=== PATIENT | female | born 1955 | race Caucasian/White ===

== ENCOUNTER 2021-07-25 15:20 | Inpatient (IN) | payer MEDICARE, BC ==
[2021-07-25] VITALS (11 sets, daily range): BP systolic 155–215; BP diastolic 70–97
[~2021-07-25] VITALS: Ht 152.4 cm; Wt 84.7 kg
[2021-07-25] MEDS ORDERED: IV DEXTROSE 5% 250 ML BAG. IV PRN (15:45)
[2021-07-25] MEDS ORDERED: DEXTROSE 50% 25 GM / 50ML DISP.SYRIN. IV PRN (15:45)
[2021-07-25] MEDS ORDERED: 0.9 % SODIUM CHLORIDE 10 ML DISP.SYRIN. IV PRN (15:45)
[2021-07-25] MEDS ORDERED: ONDANSETRON PF 4 MG/2 ML VIAL. IVP PRN (15:45)
[2021-07-25] MEDS: POTASSIUM CL 20MEQ D5-0.45NACL 1,000 ML IV SCH (16:00)
[2021-07-25 16:03] LABS: BASO # 0.2 x10^3/uL (0.0-0.2); BASO % 1 % (0-3); EOS % 0 % (0-3); HEMATOCRIT 40.7 % (36.0-47.0); HEMOGLOBIN 13.7 g/dL (12.0-15.5); LYMPH # 1.7 x10^3/uL (1.0-4.8); LYMPH % 12 % (24-48); MEAN CORPUSCULAR HEMOGLOBIN 30 pg (25-35); MEAN CORPUSCULAR HGB CONC 34 g/dL (31-37); MEAN CORPUSCULAR VOLUME 89 fL (79-100); MONO # 1.2 x10^3/uL (0.0-1.1); MONO % 8 % (0-9); NEUT # 11.8 x10^3/uL (1.8-7.7); NEUT % 79 % (31-73); PLATELET COUNT 266 x10^3/uL (140-400); RED BLOOD COUNT 4.58 x10^6/uL (3.50-5.40); RED CELL DISTRIBUTION WIDTH 13.8 % (11.5-14.5); WHITE BLOOD COUNT 14.8 x10^3/uL (4.0-11.0)
[2021-07-25] MEDS ORDERED: LIDOCAINE 1% Multi-Dose 20 ML VIAL. ONE (16:10)
[2021-07-25 16:13] LABS: CALCIUM 9.3 mg/dL (8.5-10.1); CREATININE 1.7 mg/dL (0.6-1.0); GFR 30.3; POTASSIUM 3.3 mmol/L (3.5-5.1)
[2021-07-25] MEDS ORDERED: MIDAZOLAM HCL/PF 5 MG/5 ML VIAL. IVP ONE (16:15)
[2021-07-25 16:18] LABS: ALBUMIN 3.3 g/dL (3.4-5.0); ALBUMIN/GLOBULIN RATIO 0.9 (1.0-1.7); TOTAL BILIRUBIN 0.4 mg/dL (0.2-1.0)
[2021-07-25] MEDS ORDERED: CYAN500T40 SL (16:55)
[2021-07-25] MEDS ORDERED: CLOP75TA PO (16:55)
[2021-07-25] MEDS ORDERED: DULO20CA PO (16:55)
[2021-07-25] MEDS ORDERED: DOCU-109 PO (16:55)
[2021-07-25] MEDS ORDERED: FENT1PAT15 TP (16:58)
[2021-07-25 17:00] LABS: CSF PROTEIN 60.1 mg/dL (15.0-45.0)
[2021-07-25] MEDS ORDERED: ALLO100T PO (17:09)
[2021-07-25] MEDS ORDERED: GABA600T7 PO (17:09)
[2021-07-25] MEDS ORDERED: HYDR-2867 PO (17:09)
[2021-07-25] MEDS ORDERED: ATOR40TA59 PO (17:09)
[2021-07-25] MEDS ORDERED: FOLI0.4T5 PO (17:09)
[2021-07-25] MEDS ORDERED: ISOS30TA68 PO (17:09)
[2021-07-25] MEDS ORDERED: ASPI81TA59 PO (17:09)
[2021-07-25] MEDS ORDERED: CARV25TA2 PO (17:09)
[2021-07-25] MEDS ORDERED: ACETAMINOPHEN 650 MG SUPP.RECT. PR PRN (17:15)
[2021-07-25] MEDS: cefTRIAXone IV Push 2 GM VIAL. IVP SCH (17:54)
[2021-07-25] MEDS: LABETALOL 20 MG/4 ML DISP.SYRIN. IVP PRN (17:56)
[2021-07-25] MEDS: DEXAMETHASONE SOD PHOS 20 MG/5 ML VIAL. IV SCH (17:56)
[2021-07-25] MEDS ORDERED: INSULIN LISPRO 300 UNITS/3 ML VIAL. SQ SCH (18:00)
[2021-07-25 18:08] LABS: CSF CLARITY CLEAR; CSF COLOR COLORLESS
[2021-07-25 18:09] LABS: CSF MON % 4 %; CSF PMN % 96 %; CSF RBC COUNT 24 /cmm (Not Established); CSF WBC COUNT 119 /cmm (Not Established)
[2021-07-25] MEDS ORDERED: DEXTROSE 5% IV SCH (18:30)
[2021-07-25] MEDS ORDERED: ACYCLOVIR SODIUM IV SCH (18:30)
[2021-07-25] MEDS ORDERED: VANCOMYCIN 1 GM in IV NORMAL SALINE 250ML 250 ML IV ONE (19:00)
--- NOTE | 2021-07-25 19:29 | NUR ---
PT WAS ADMITTED FROM [facility] AT 1515, SPOKE WITH DR SAHA REGARDING ADMISSION ORDERS, ORDER FOR LUMBAR PUNCTURE RECEIVED, SPOKE WITH DR SHEPHERD WHO STATED HE COULD DO IT BUT PT IS NOT ABLE TO FOLLOW DIRECTIONS SO VERSED ORDERED IF NEEDED FOR PROCEDURE, RN ACCOMPANIED PT AND STAYED TO MONITOR DURING PROCEDURE, PT DID NOT END UP NEEDING VERSED AND TOLERATED PROCEDURE WELL. SITE CHECKS WERE THEN DONE PER PROTOCOL, ALL WDL. CONSULT AND RESULTS OF LP CALLED TO INFECTIOUS DISEASE, ORDERS RECEIVED AND EXECUTED.
[2021-07-25] MEDS: DAPTOmycin (GENERIC) IVPB 450 MG in IV NORMAL SALINE 50ML 50 ML IV SCH (19:31)
[2021-07-25] MEDS: DEXTROSE 5% IV SCH (20:09)
[2021-07-25] MEDS: ACYCLOVIR SODIUM IV SCH (20:09)
[2021-07-26] VITALS (30 sets, daily range): BP systolic 68–193; BP diastolic 39–90
[2021-07-26] MEDS: DEXAMETHASONE SOD PHOS 20 MG/5 ML VIAL. IV SCH ×3 (01:01→11:15)
[2021-07-26] MEDS: LABETALOL 20 MG/4 ML DISP.SYRIN. IVP PRN (01:06)
[2021-07-26] MEDS ORDERED: INSULIN LISPRO 300 UNITS/3 ML VIAL. SQ ONE (01:30)
[2021-07-26] MEDS: POTASSIUM CL 20MEQ D5-0.45NACL 1,000 ML IV SCH (02:00)
[2021-07-26 05:23] LABS: ALBUMIN 2.9 g/dL (3.4-5.0); ALBUMIN/GLOBULIN RATIO 0.7 (1.0-1.7); CALCIUM 9.4 mg/dL (8.5-10.1); GFR 25.1; POTASSIUM 3.9 mmol/L (3.5-5.1); TOTAL BILIRUBIN 0.3 mg/dL (0.2-1.0); TOTAL PROTEIN 7.2 g/dL (6.4-8.2)
[2021-07-26] MEDS ORDERED: INSULIN LISPRO 300 UNITS/3 ML VIAL. SQ SCH ×2 (06:00→08:00)
[2021-07-26 06:39] LABS: BASO % 0 % (0-3); EOS % 0 % (0-3); HEMATOCRIT 42.5 % (36.0-47.0); HEMOGLOBIN 13.7 g/dL (12.0-15.5); LYMPH # 0.9 x10^3/uL (1.0-4.8); LYMPH % 8 % (24-48); MEAN CORPUSCULAR HEMOGLOBIN 29 pg (25-35); MEAN CORPUSCULAR HGB CONC 32 g/dL (31-37); MEAN CORPUSCULAR VOLUME 91 fL (79-100); MONO # 0.2 x10^3/uL (0.0-1.1); MONO % 2 % (0-9); NEUT # 10.4 x10^3/uL (1.8-7.7); NEUT % 90 % (31-73); PLATELET COUNT 211 x10^3/uL (140-400); RED BLOOD COUNT 4.67 x10^6/uL (3.50-5.40); RED CELL DISTRIBUTION WIDTH 14.4 % (11.5-14.5); WHITE BLOOD COUNT 11.6 x10^3/uL (4.0-11.0)
--- NOTE | 2021-07-26 07:12 | NUR ---
0109 Dr. Alvarez paged to notify him of blood sugar 398. Awaiting response. 0131 Dr. Alvarez did not respond. Second attempt made to page to notify him of increased blood sugar. 0132 Dr. Alvarez called back and was notified of the increased blood sugar of 398 with steroids and D51/2NS with [address] KCL infusing at 100ml[address] Alvarez stated to keep steroids and maintenance fluids infusing. Orders received to give 10 units subq X1 dose now, increase sliding scale insulin to 0-9 unit order set, and add 20 units of lantus daily. 0639 Dr. Alvarez paged to notify of increased blood sugar of 475. Awaiting response. 0642 Dr. Alvarez called back and gave orders to give 10 units of scheduled insulin in addition to sliding scale.
[2021-07-26] MEDS ORDERED: INSULIN GLARGINE SYRINGE. SQ SCH (09:00)
[2021-07-26] MEDS: ACYCLOVIR SODIUM IV SCH (09:24)
[2021-07-26] MEDS: DEXTROSE 5% IV SCH (09:24)
[2021-07-26] MEDS: CYANOCOBALAMIN (VITAMIN B-12) 1,000 MCG TABLET. PO SCH (11:12)
[2021-07-26] MEDS: DULoxetine HCL 20 MG CAPSULE.DR PO SCH (11:12)
[2021-07-26] MEDS: cefTRIAXone IV Push 2 GM VIAL. IVP SCH ×2 (11:12→14:00)
[2021-07-26] MEDS: ALLOPURINOL 100 MG TABLET. PO SCH (11:12)
[2021-07-26] MEDS: DOCUSATE SODIUM 100 MG CAPSULE. PO SCH ×2 (11:13→20:57)
[2021-07-26] MEDS: GABAPENTIN 300 MG CAPSULE. PO SCH ×2 (11:13→20:57)
[2021-07-26] MEDS: FOLIC ACID 1 MG TABLET. PO SCH (11:13)
[2021-07-26] MEDS: HYDROmorphone 2 MG TABLET PO PRN ×3 (11:14→23:48)
[2021-07-26] MEDS: INSULIN LISPRO 300 UNITS/3 ML VIAL. SQ SCH ×5 (11:21→21:00)
--- NOTE | 2021-07-26 11:49 | HP ---
DATE OF SERVICE: 07/26/2021 ADMIT DATE: 07/25/2021 HISTORY OF PRESENT ILLNESS: The patient is a 65-year-old female patient who presented to the Emergency Room via EMS from home for generalized weakness and decreased responsiveness. She has reportedly had elevated blood sugar at home as well. The patient is on arrival, she was disheveled, has a dried vomitus on her hands and her mouth. She apparently has been throwing up and she vaguely moans, yes. No meaningful history was obtainable from her. However, the ER physician was able to talk to her daughter who stated that the patient became altered on the day before arrival to the Emergency Room. She reports that the night before the patient was feeling well, staying up until midnight, watching TV. The patient was eating and drinking normally. She reports that on the day of admission, the patient has been urinating and stooling on herself and urinating and stooling on the bathroom floor. The patient's daughter had to clean out to clear her up multiple times. She reports that she has been confused and not making any sense. She has vomited several times. She reports that this is completely unlike her. The patient has reportedly previously lived in [facility] with one of her sons until April of this year. She has not yet established care with any primary care physician in [facility]. The patient has a history of poorly-controlled type 2 diabetes mellitus, her daughter reported that 400 mg is normal for her. She has a history of congestive heart failure with status post myocardial infarction, coronary artery disease with stents. The patient reports compliance with all medications. The patient is not very compliant with her [employer] diet. The patient's daughter denies that she has witnessed any falls or injuries. She has had previously taken oral Dilaudid and fentanyl patches for chronic pain, but has not taken any of these for the last 3 weeks. She has also used medicinal marijuana, but she has not ingested any of this since April of this year. She was extensively investigated in the Emergency Room and apparently has had lab work and the imaging studies. Her lab work showed she has mild leukocytosis. White cell count of 11.4. Her blood gases were remarkable for hypoxia. Her chemistry was remarkable for marked hyperglycemia with a blood sugar of 546. Chronic kidney injury, perhaps acute on chronic kidney injury. Her chest x-ray was unremarkable and showed no acute cardiopulmonary abnormality in the chest. CT scan of the head was also unremarkable showing that there is moderate diffuse atrophy. There is no mass effect, extraaxial fluid collection, or hydrocephalus. There is no focal loss of white-white matter distinction to suggest acute ischemia and moderate atrophy was seen, as seen previously no acute finding. CT scan of the abdomen and pelvis was also unrevealing with no evidence of acute intraabdominal abnormality. She does have an IVC filter placed and she was admitted and was started on IV ceftriaxone, although I am not sure exactly what was treated as her urinalysis showed only 6-10 rbc's, 0 wbc's and no bacteria. When I came to see her around noon, the patient was continued to be unresponsive. She has marked neck rigidity. Rectal temperature of 103.2. Given her altered mental status, leukocytosis, fever and neck rigidity meningitis was my #1 differential diagnosis and therefore, I transferred her to [facility] for a lumbar puncture to be done under fluoroscopy guidance given that she is on Plavix and aspirin. I did speak with Dr. Avila about it. PAST MEDICAL HISTORY: Significant for coronary artery disease, hyperlipidemia, hypertension, myocardial infarction, chronic kidney disease. She also has diabetic gastroparesis and stage 4 kidney disease. PAST SURGICAL HISTORY: Significant for cholecystectomy, and drainage of perirectal abscess x 8. She does have also PCI with stent deployment. FAMILY HISTORY: Unobtainable. SOCIAL HISTORY: She apparently used to live in [place] with one of her sons and she moved here to live to be with her daughter. She continues to smoke. Does not drink alcohol, but continued to smoke marijuana, although the last time she used any marijuana was in April of this year. She was also on Dilaudid and fentanyl, but according to her daughter, she has not had any for the last 3 weeks. REVIEW OF SYSTEMS: The patient seems to be definitely more awake, alert. She continued to complain of headache. ALLERGIES: SHE IS ALLERGIC TO MORPHINE, OXYCODONE, AND PREGABALIN. MEDICATIONS: She is on the following medications: She is on ferrous sulfate 325 mg on Friday, Friday and Friday. Plavix 75 mg daily, hydralazine 25 mg twice a day, isosorbide mononitrate 60 mg once a day, nitroglycerin 0.4 mg sublingually every 5 minutes x 3, carvedilol 12.5 mg twice a day with meals, aspirin 81 mg once a day, fentanyl 25 mcg per hour topically every 72 hours, hydromorphone 2 mg 3 times a day, acetaminophen 650 mg every 4-6 hours, gabapentin 600 mg twice a day, duloxetine 60 mg daily. She is on furosemide 40 mg once a day, metolazone 2.5 mg Friday, Friday, Friday. Magnesium oxide 400 mg at bedtime, Colace 200 mg twice a day, Protonix 40 mg once a day, metoclopramide 10 mg 3 times a day, levothyroxine sodium 125 mcg once a day, nystatin powder apply topically twice a day. She is also on oxybutynin chloride 5 mg daily, cyanocobalamin 5000 mcg p.o. daily. She is on folic acid 400 mcg once a day, vitamin C 1000 mg daily. She is on calcitriol 0.25 mcg Friday, Friday, Friday. Vitamin D and K2 one tablet daily, multivitamin 1 tablet once a day, allopurinol 100 mg daily. She is on atorvastatin 80 mg daily. ASSESSMENT AND PLAN: The patient was basically transferred to [facility] and underwent laparoscopic guided lumbar puncture and CSF was sent for glucose, protein, cell count and differential and also gram stain and culture as well as a CMV by PCR. We did consult the Infectious Disease specialist and she was started on acyclovir, daptomycin, dexamethasone and ceftriaxone, was continued on IV fluid. We did start her also on heparin, on Lantus as well as Humalog insulin. PHYSICAL EXAMINATION: GENERAL: When I saw her today, she was definitely more awake, alert, responding appropriately. When I examined her, she looked well and was clearly in no apparent distress. There is no pallor, jaundice, cyanosis or thyromegaly. No jugular venous distention. No lower limb edema. VITAL SIGNS: Her heart rate was 78, blood pressure is 138/60, temperature was 98.8, respiratory rate was 14 and oxygen saturation was 94% on 2 liters of oxygen. HEAD, EYES, EARS, NOSE, AND THROAT: Normocephalic, atraumatic. NECK: Supple. HEART: Showed normal first and second heart sounds. No gallop, rub or murmur. CHEST: Clear to auscultation, no crepitation or rhonchi. ABDOMEN: Distended, soft, nontender. NEUROLOGIC: She is definitely more awake, alert, responding appropriately. All her cranial nerves are intact. She moves extremities without difficulty. LABORATORY DATA: Her lab work this morning showed a white cell count of 11,600, hemoglobin 13.7, hematocrit 42, MCV 91, and platelet count 211,000 with a manual differential showed 90% polymorphs, 8% lymphocytes and 2% monocytes. Her chemistry showed that her serum sodium was 142, potassium 3.4. Her chloride was 103, bicarbonate 27, anion gap of 12, BUN 34, creatinine 2, estimated GFR was 25 mL per minute. Her glucose was 446, calcium was 9.4. Total bilirubin, AST, ALT were normal. Alkaline phosphatase 151. Total protein was 7.2, albumin was 2.9. Her CSF was colorless, clear with 119 wbc's of which 96% were polymorphonuclear leukocytes and 4% mononuclear leukocytes. Her CSF glucose was 96 and the CSF protein was 60. Obviously, the high polynuclear and total protein are consistent with bacterial meningitis; however, her blood sugar is high. Her CSF sugar was high, but obviously her blood sugar was even higher, so I do not know whether that continues to be consistent with bacterial meningitis. PLAN: The patient was started on acyclovir, daptomycin, dexamethasone and ceftriaxone. By the Infectious Disease specialist, her CSF was sent for gram stain as well as culture and sensitivity as well as polymerase PCR for cytomegalovirus and West Nile virus. Patient definitely seems to be much better, more awake, more alert today. OCHOA DR: Goe TID: [id number]
[2021-07-26] MEDS ORDERED: hydrALAZINE 10 MG TABLET PO SCH (12:00)
[2021-07-26] MEDS ORDERED: ISOSORBIDE MONONITRATE ER 30 MG TAB.ER.24H PO SCH (12:00)
--- NOTE | 2021-07-26 14:00 | RAD ---
Lumbar puncture 07/25/2021 HISTORY: High fever, neck rigidity, confusion, possible meningitis. Fluoroscopy time: 0.6 seconds Images acquired: 6 The procedure was performed under medical necessity consent secondary to the patient's altered mental status, and time sensitive and emergent nature of the procedure. No other alternative welding equipment sales representative was readily available. A suitable entry site into the central canal through the L3-L4 interlaminar space was identified with fluoroscopic guidance and the skin surface was marked. The patient was prepped and draped in steril e fashion. 1% lidocaine solution without epinephrine was infiltrated into the skin and deep soft tis sues along the expected needle track. A 22-gauge spinal needle was advanced into the thecal sac with intermittent fluoroscopic guidance. A total of 12 mL CSF was collected and sent to the laboratory . The needle was removed without complication. Sterile dressings were applied. No immediate complicat ions were identified. IMPRESSION: Fluoroscopically guided lumbar puncture Electronically signed by: Frandy Hwang MD (07/26/2021 1:58 PM) [id number]
--- NOTE | 2021-07-26 14:58 | CONS ---
DATE OF CONSULTATION: 07/25/2021 REFERRING PHYSICIAN: Dr. Alvarez. REASON FOR CONSULTATION: Meningitis, antibiotic management. HISTORY OF PRESENT ILLNESS: A 65-year-old female originally from [place], who came to [place] to help out with her grandson in 04/2021. The patient was taken to [facility] via EMS from home with generalized weakness and decreased responsiveness, fever, elevated blood sugar. The patient was found to be disabled with dried vomitus on the hand and her mouth. Her white count was 11.4, creatinine of 1.5, potassium of 3.1, lactate of 1.6, glucose of 546. Bicarb was 32. Albumin of 0.9. Ammonia of less than 10. Troponin 13, lipase 23. UA was negative for leukocyte esterase. INR was 0.9. UDS was negative. Acetone was negative. Urine drug screen was negative. The patient underwent SARS-COVID, which was negative. Influenza screen was negative. SARS-COVID PCR was negative. The patient has blood cultures done, which were reported negative. She had a chest x-ray, which revealed no acute abnormality. Head CT revealed moderate atrophy, no other findings. Abdomen and pelvic CT showed no evidence of intraabdominal abnormality. IVC filter in place. Due to concern for meningitis, she was transferred to [facility] At [facility], the patient had received ceftriaxone once. Due to concerns for meningitis she was transferred to [facility] for further evaluation and treatment. The patient was admitted to ICU. On presentation, her temperature was 100.8. White count was 14.8, creatinine of 1.7. The patient underwent LP under the guidance from Dr. Alvarez. CSF was colorless, clarity clear, wbc 119, RBC 24, polys 96, glucose 96, total protein 60.1. Gram stain was negative. I added strep pneumo antigen, HSV PCR. I started the patient on ceftriaxone, daptomycin, dexamethasone and acyclovir last night. This morning, the patient is alert, oriented x 3, still has headache, fever pattern is improved. Creatinine is up to 2.0. White count is down to 11.6. Blood cultures remain negative at [facility]. The patient said that she had runny nose, felt like she had sinus infection. She denies being on any antibiotics prior to admission. Denies any sick contact. Denies any recent travel or procedures. The patient still feels weak. She has a history of chronic pain. Has not been on any pain medication recently. Denies any new medication. PAST MEDICAL HISTORY: Diabetes, poorly controlled; CHF; coronary artery disease; CKD; hyperlipidemia; diabetic gastroparesis. PAST SURGICAL HISTORY: Cholecystectomy, , drainage of perirectal abscess x 8, PCI with stent placement. FAMILY HISTORY: As per HPI. SOCIAL HISTORY: Lives in [place], has moved here in April to help her out with her grandson. Continues to smoke. Lives with her son in [place]. No alcohol. No illicit drug use, though there is mention about marijuana. REVIEW OF SYSTEMS: Negative except for above in HPI. ALLERGIES: MORPHINE, OXYCODONE, PREGABALIN. CURRENT MEDICATIONS: IV ceftriaxone, acyclovir, dexamethasone, daptomycin. Other medications reviewed in medication list. PHYSICAL EXAMINATION: VITAL SIGNS: Temperature 98.8, T-max 100.8, pulse 109, respiratory rate 24, blood pressure 123/60, oxygen saturation 96% on room air. GENERAL: Alert, oriented x 3 female, lying in bed comfortably, in no acute distress, appears tired. HEENT: Normocephalic, atraumatic. Anicteric. No thrush. Oral mucosa moist. No sinus tenderness. No runny nose. No oropharyngeal exudate. NECK: Supple, no JVD, no thyromegaly. LUNGS: Clear bilaterally. No wheezing. HEART: S1, S2. No gallops or murmurs. ABDOMEN: Soft, nontender, nondistended. Bowel sounds present. GENITOURINARY: No Elliott in place. EXTREMITIES: No edema, no cyanosis. DERMATOLOGIC: Warm, dry, no generalized rash. NEUROLOGIC: Alert and oriented x 3, grossly nonfocal. PSYCHIATRIC: Calm and cooperative. LABORATORY DATA: WBC 11.6, was 14.8; hemoglobin 13.7; hematocrit of 42.5; platelets 211. Sodium 147, potassium 3.3, chloride 106, bicarbonate 32, BUN 30, creatinine 1.7, glucose 153. AST, ALT normal. Alkaline phosphatase 164. Albumin 3.3. CSF; colorless clear, wbc 119, RBC 24, , glucose 96, total protein 60.1. IMAGING: CT head at outside hospital reviewed. Chest x-ray reviewed. CT abdomen and pelvis reviewed. IMPRESSION: 1. Fever, etiology unclear, could be aseptic meningitis. 2. Headache with aseptic meningitis. 3. Encephalopathy, resolved, could be metabolic component also. 4. Leukocytosis. 5. Acute kidney injury with underlying chronic kidney disease. 6. Diabetes mellitus, poorly controlled. 7. Coronary artery disease. 8. Chronic pain. RECOMMENDATIONS: 1. The patient could have aseptic meningitis. HSV meningoencephalitis probability is low as the patient improved in less than 24 hours. 2. Follow up HSV CSF PCR and strep pneumo antigen. 3. Probability of CMV encephalitis is low in this patient. CMV has been ordered by primary care physician. 4. Continue ceftriaxone, can decrease to 2 grams IV every day. Discontinue dexamethasone. Continue daptomycin for now. Discontinue acyclovir . 5. Monitor labs and cultures. 6. Maintain aspiration precaution. 7. Continue supportive care. 8. Influenza and COVID-19 negative at outside facility. 9. Respiratory viral panel is not available at this center. 10. Meningoencephalitis panel is not available at this center. 11. Continue supportive care. Thank you, Dr. Alvarez, for consulting Infectious Disease to participate in this patient's care. If you have any questions, do not hesitate to contact me. GENNARO TOMLINSON: Mick TID: [id number] [facility]
[2021-07-26] MEDS ORDERED: IV NORMAL SALINE 1000ML BAG 1,000 ML IV ONE (16:00)
--- NOTE | 2021-07-26 16:30 | NUR ---
Spoke with Dr Alvarez regarding pt blood pressure being low, informed him that the pt granddaughter states she may not take her home medications as instructed, order for 1 L NS received. Pt blood pressure responded as expected.
[2021-07-26] MEDS ORDERED: CARVEDILOL 12.5 MG TABLET. PO SCH (17:00)
[2021-07-26] MEDS: DAPTOmycin (GENERIC) IVPB 450 MG in IV NORMAL SALINE 50ML 50 ML IV SCH (19:39)
[2021-07-26] MEDS: POTASSIUM CL 20MEQ-0.45% NACL 1,000 ML IV SCH (20:56)
[2021-07-26] MEDS: ATORVASTATIN CALCIUM 40 MG TABLET. PO SCH (20:57)
[2021-07-26] MEDS: LACTOBACILLUS RHAMNOSUS GG 1 CAPSULE. PO SCH (20:57)
--- NOTE | 2021-07-26 23:56 | NUR ---
Dr. Alvarez paged and notified of patient 09/28 constant mid sternum area chest pain. patient just alerted RN of finding, however, stated she has had the pain for a few hours. patient denied anything improving or worsening pain. orders given and placed for BMP, Troponin, and EKG. RT paged to alert of EKG order. Awaiting results.
[2021-07-27] VITALS (13 sets, daily range): BP systolic 115–161; BP diastolic 61–92
[2021-07-27 01:18] LABS: CALCIUM 8.8 mg/dL (8.5-10.1); CREATININE 2.1 mg/dL (0.6-1.0); GFR 23.7; POTASSIUM 4.2 mmol/L (3.5-5.1)
[2021-07-27 05:05] LABS: BASO # 0.1 x10^3/uL (0.0-0.2); BASO % 0 % (0-3); EOS % 0 % (0-3); HEMATOCRIT 34.6 % (36.0-47.0); HEMOGLOBIN 11.3 g/dL (12.0-15.5); LYMPH # 1.4 x10^3/uL (1.0-4.8); LYMPH % 7 % (24-48); MEAN CORPUSCULAR HEMOGLOBIN 30 pg (25-35); MEAN CORPUSCULAR HGB CONC 33 g/dL (31-37); MEAN CORPUSCULAR VOLUME 91 fL (79-100); MONO # 0.6 x10^3/uL (0.0-1.1); MONO % 3 % (0-9); NEUT # 16.6 x10^3/uL (1.8-7.7); NEUT % 89 % (31-73); PLATELET COUNT 199 x10^3/uL (140-400); RED BLOOD COUNT 3.82 x10^6/uL (3.50-5.40); WHITE BLOOD COUNT 18.6 x10^3/uL (4.0-11.0)
[2021-07-27 05:38] LABS: ALBUMIN 2.4 g/dL (3.4-5.0); ALBUMIN/GLOBULIN RATIO 0.8 (1.0-1.7); CALCIUM 8.5 mg/dL (8.5-10.1); CREATININE 1.8 mg/dL (0.6-1.0); GFR 28.3; POTASSIUM 4.1 mmol/L (3.5-5.1); TOTAL BILIRUBIN 0.3 mg/dL (0.2-1.0); TOTAL PROTEIN 5.5 g/dL (6.4-8.2)
--- NOTE | 2021-07-27 05:55 | NUR ---
Dr. Alvarez paged and alerted of patient 8 chest pain. At times radiates to her right side. Per patient, the pain "feels like it is related to her heart and what she has felt in the past". The pain was not responsive to PO pain medications. Provider updated on troponin and ekg results. Telephone orders given and read back for IV dilodid 1 mg q3 hours for pain. Protonix 40mg once a day IV. Reglan 5mg before meals and at night time. Chest Xray. And for a cardiology consult.
[2021-07-27] MEDS: POTASSIUM CL 20MEQ-0.45% NACL 1,000 ML IV SCH ×2 (06:23→16:49)
[2021-07-27] MEDS: HYDROmorphone 2 MG/ML INJ. IVP PRN ×4 (06:24→20:20)
--- NOTE | 2021-07-27 08:21 | RAD ---
XR CHEST 1V History: Reason: chest pain 107 / Spl. Instructions: / History: Comparison: July 24, 2021 Findings: Mild linear right basilar opacity. No pleural effusion. No pneumothorax. Normal heart size. Impression: 1. Increased mild linear right basilar opacity, may represent atelectasis. Electronically signed by: Waqar Escudero DO (07/27/2021 8:18 AM) [id number]
[2021-07-27] MEDS: GABAPENTIN 300 MG CAPSULE. PO SCH ×2 (09:00→20:21)
[2021-07-27] MEDS: METOCLOPRAMIDE 5 MG TABLET. PO SCH ×4 (09:00→20:21)
[2021-07-27] MEDS: FOLIC ACID 1 MG TABLET. PO SCH (09:00)
[2021-07-27] MEDS: DULoxetine HCL 20 MG CAPSULE.DR PO SCH (09:00)
[2021-07-27] MEDS: CYANOCOBALAMIN (VITAMIN B-12) 1,000 MCG TABLET. PO SCH (09:00)
[2021-07-27] MEDS: PANTOPRAZOLE IV PUSH 40 MG VIAL. IVP SCH (09:01)
[2021-07-27] MEDS: DOCUSATE SODIUM 100 MG CAPSULE. PO SCH ×2 (09:01→20:20)
[2021-07-27] MEDS: ALLOPURINOL 100 MG TABLET. PO SCH (09:01)
[2021-07-27] MEDS: LACTOBACILLUS RHAMNOSUS GG 1 CAPSULE. PO SCH ×2 (09:01→20:20)
[2021-07-27] MEDS: INSULIN GLARGINE SYRINGE. SQ SCH (09:03)
[2021-07-27] MEDS: INSULIN LISPRO 300 UNITS/3 ML VIAL. SQ SCH ×7 (09:04→20:21)
[2021-07-27] MEDS: NITROGLYCERIN SUBLINGUAL 0.4 MG BOTTLE OF 25. SL PRN (09:34)
--- NOTE | 2021-07-27 09:49 | EKG ---
[facility] [address] [place] [address] Test Date: 2021-07-27 Test Time: 00:11:17 Pat Name: ISABELL BARRON Department: Room: [facility] Gender: F Litigation Support Analyst: LAURA : [id number] Requested By: LEONARDA MG Order Number: [id number] Reading MD: Guy Morrow Measurements Intervals [place] Rate: 85 P: 32 NH: 162 QRS: 4 QRSD: 72 T: 94 QT: 368 QTc: 443 Interpretive Statements SINUS RHYTHM QRS(T) CONTOUR ABNORMALITY CONSIDER ANTEROSEPTAL MYOCARDIAL DAMAGE T ABNORMALITY IN HIGH LATERAL LEADS ABNORMAL ECG Electronically Signed On 08-03-2021 14:18:46 CDT by Guy Morrow
--- NOTE | 2021-07-27 10:00 | PDOC2 ---
[facility] TE[facility] 07/27/21 1000: CARDIAC CONSULT DATE OF CONSULT Date of Consult DATE: 07/27/21 TIME: 09:28 REASON FOR CONSULT Reason for Consult: Chest pain REFERRING PHYSICIAN Referring Physician: Antonio SOURCE Source: Chart review, Patient HISTORY OF PRESENT ILLNESS HISTORY OF PRESENT ILLNESS This is a pleasant 65 yo female admitted for complains of weakness, nausea and vomiting and altered mentation and was also noted with high BG. She was at [facility] at first and transferred to [facility] for further treatment and evaluation. She had fever when admitted and being suspected for asceptic meni ngitis. She resides in [place] and came here and has been here since April helping her daughter take care of her child and planning to go back to [place] at some point. Her ethanol maintenance mechanic is over there. Reports that she has been having CHRISTENSEN lately and progressing. Also has been belching more often. Upon admission she starrted having chest tightness that radiated to her neck and during my conversation with her she started having chest tightness rating it as 7 in 0-10 scale. No recent falls or injury. She has a total of 8 stents with last one done at [facility] 3 yrs ago. She takes ASA and plavix. She is diabetic and insulin dependent. She has remote hx of PE/DVT. She also may have ran out of some her meds recently. 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) Endocrine: Diabetes, Hypothyroidism Dermatology: No pertinent hx PAST SURGICAL HISTORY Past Surgical History: Cholecystectomy, Other (multiple PCI) FAMILY HISTORY Family History: Coronary Artery Disease (father) SOCIAL HISTORY Smoke: Quit (25 pk yr quit remotely) ALCOHOL: none Drugs: Other (hx of medical marijuana) Lives: with Family CURRENT MEDICATIONS CURRENT MEDICATIONS Current Medications Medications (Trade) Dose Ordered Sig/Marcelo Route PRN Reason Start Time Stop Time Status Last Admin Dose Admin Allopurinol (Zyloprim) 100 mg DAILY PO 07/26/21 12:00 07/27/21 09:01 Atorvastatin Calcium (Lipitor) 80 mg HS PO 07/26/21 21:00 07/26/21 20:57 Docusate Sodium (Colace) 100 mg BID PO 07/26/21 12:00 07/27/21 09:01 Duloxetine HCl (Cymbalta) 20 mg DAILY PO 07/26/21 12:00 07/27/21 09:00 Hydralazine HCl (Apresoline) 10 mg BID PO 07/26/21 12:00 07/26/21 15:53 DC 07/26/21 11:34 Isosorbide Mononitrate (Imdur) 30 mg DAILY PO 07/26/21 12:00 07/26/21 15:53 DC 07/26/21 11:14 Cyanocobalamin (Vitamin B-12) 500 mcg DAILY PO 07/26/21 12:00 07/27/21 09:00 Folic Acid (Folic Acid) 0.5 mg DAILY PO 07/26/21 12:00 07/27/21 09:00 Gabapentin (Neurontin) 600 mg BID PO 07/26/21 12:00 07/27/21 09:00 Insulin Glargine (Lantus Syringe) 30 unit DAILY SQ 07/27/21 09:00 07/27/21 09:03 Insulin Human Lispro (HumaLOG) 0-15 UNITS QIDACHS SQ 07/26/21 11:30 07/27/21 09:04 Insulin Human Lispro (HumaLOG) 15 units TIDWMEALS SQ 07/26/21 12:00 07/27/21 09:04 Hydromorphone HCl (Dilaudid) 2 mg PRN Q4HRS PRN PO PAIN 07/26/21 10:45 07/26/21 23:48 Sodium Chloride 1,000 ml @ 1,000 mls/hr 1X ONCE IV 07/26/21 16:00 07/26/21 16:59 DC 07/26/21 17:01 Lactobacillus Rhamnosus (Culturelle) 1 cap BID PO 07/26/21 21:00 07/27/21 09:01 Potassium Chloride/Sodium Chloride 1,000 ml @ 100 mls/hr Q10H IV 07/26/21 18:15 07/27/21 06:23 Pantoprazole Sodium (PROTONIX VIAL for IV PUSH) 40 mg DAILYAC IVP 07/27/21 07:30 07/27/21 09:01 Hydromorphone HCl (Dilaudid) 1 mg PRN Q3HRS PRN IVP SEVERE PAIN 7-10 07/27/21 06:00 07/27/21 06:24 Metoclopramide HCl (Reglan) 5 mg TIDACHC PO 07/27/21 07:30 07/27/21 09:00 ALLERGIES ALLERGIES: Coded Allergies: morphine (Verified Allergy, Intermediate, 07/25/21) oxycodone (Verified Allergy, Intermediate, 07/25/21) pregabalin (Verified Allergy, Intermediate, 07/25/21) ROS Review of System 14 point ROS evaluated with pertinent positives noted per HPI PHYSICAL EXAM General: Alert, Oriented X3, Cooperative, No acute distress HEENT: Atraumatic, Mucous membr. moist/pink Lungs: Clear to auscultation, Normal air movement Heart: Regular rate (SR), Normal S1, Normal S2, No murmurs Abdomen: Soft, No tenderness Extremities: No cyanosis, No edema Skin: No breakdown, No significant lesion Neuro: Normal speech, Sensation intact Psych/Mental Status: Mental status NL, Mood NL MUSCULOSKELETAL: Osteoarthritic changes both hands VITALS/I&O VITALS/I&O: Vital Signs Date Time Temp Pulse Resp B/P (MAP) Pulse Ox O2 Delivery O2 Flow Rate FiO2 07/27/21 08:00 Room Air 07/27/21 07:59 98.2 79 18 161/76 (104) 94 98.2 07/27/21 05:00 3.0 I & O 07/26/21 07/26/21 07/27/21 15:00 23:00 07:00 Intake Total 400 ml 2027 ml 1243 ml Output Total 40 ml 80 ml 200 ml Balance 360 ml 1947 ml 1043 ml LABS Lab: Laboratory Tests Test 07/26/21 11:17 07/26/21 17:58 07/26/21 20:52 07/26/21 23:54 Glucose (Fingerstick) 493 mg/dL (70-99) H 321 mg/dL (70-99) H 383 mg/dL (70-99) H Sodium Level 135 mmol/L (136-145) L Potassium Level 4.2 mmol/L (3.5-5.1) Chloride Level 104 mmol/L (98-107) Carbon Dioxide Level 23 mmol/L (21-32) Anion Gap 8 (6-14) Blood Urea Nitrogen 50 mg/dL (7-20) H Creatinine 2.1 mg/dL (0.6-1.0) H Estimated GFR (Cockcroft-Gault) 23.7 Glucose Level 147 mg/dL (70-99) H Calcium Level 8.8 mg/dL (8.5-10.1) Troponin I High Sensitivity 15 ng/L (4-50) Test 07/27/21 04:00 07/27/21 04:40 07/27/21 08:06 Troponin I High Sensitivity 14 ng/L (4-50) White Blood Count 18.6 x10^3/uL (4.0-11.0) H Red Blood Count 3.82 x10^6/uL (3.50-5.40) Hemoglobin 11.3 g/dL (12.0-15.5) L Hematocrit 34.6 % (36.0-47.0) L Mean Corpuscular Volume 91 fL (79-100) Mean Corpuscular Hemoglobin 30 pg (25-35) Mean Corpuscular Hemoglobin Concent 33 g/dL (31-37) Red Cell Distribution Width 14.0 % (11.5-14.5) Platelet Count 199 x10^3/uL (140-400) Neutrophils (%) (Auto) 89 % (31-73) H Lymphocytes (%) (Auto) 7 % (24-48) L Monocytes (%) (Auto) 3 % (0-9) Eosinophils (%) (Auto) 0 % (0-3) Basophils (%) (Auto) 0 % (0-3) Neutrophils # (Auto) 16.6 x10^3/uL (1.8-7.7) H Lymphocytes # (Auto) 1.4 x10^3/uL (1.0-4.8) Monocytes # (Auto) 0.6 x10^3/uL (0.0-1.1) Eosinophils # (Auto) 0.0 x10^3/uL (0.0-0.7) Basophils # (Auto) 0.1 x10^3/uL (0.0-0.2) Sodium Level 139 mmol/L (136-145) Potassium Level 4.1 mmol/L (3.5-5.1) Chloride Level 104 mmol/L (98-107) Carbon Dioxide Level 26 mmol/L (21-32) Anion Gap 9 (6-14) Blood Urea Nitrogen 46 mg/dL (7-20) H Creatinine 1.8 mg/dL (0.6-1.0) H Estimated GFR (Cockcroft-Gault) 28.3 BUN/Creatinine Ratio 26 (6-20) H Glucose Level 143 mg/dL (70-99) H Calcium Level 8.5 mg/dL (8.5-10.1) Total Bilirubin 0.3 mg/dL (0.2-1.0) Aspartate Amino Transferase (AST) 11 U/L (15-37) L Alanine Aminotransferase (ALT) 17 U/L (14-59) Alkaline Phosphatase 115 U/L (46-116) Total Protein 5.5 g/dL (6.4-8.2) L Albumin 2.4 g/dL (3.4-5.0) L Albumin/Globulin Ratio 0.8 (1.0-1.7) L Glucose (Fingerstick) 267 mg/dL (70-99) H Laboratory Tests 07/27/21 04:40 Laboratory Tests 07/26/21 23:54 07/27/21 04:40 ASSESSMENT/PLAN ASSESSMENT/PLAN 1. Fever: none further. 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 S/P LP 07/26. presently no MORAN 2. Metabolic encephalopathy: resolved. could also be related to 3. Chest pain: concerning for unstable angina. NTG SL given 4. CAD: last stent placed at [facility] 3 yrs ago and will obtain records. 8 total stents 5. Hypertension: controlled 6. Hyperlipidemia 7. DM2: insulin dependent 8. Hxof gastroparesis 9. CKD3-4: reports it was as high as 4 in Cr in the past 10. Hypotension: possibly from BP med and volume depletion. resolved after IVF 11. Hx of PE/DVT remote with IVC filter Recommendations 1. NTG SL PRN. Obtain trop, EKG 2. TTE, FLP 3. Plavix on hold due to recent LP. Resume ASA, will clarify with IR as far as starting. 4. Secondary prevention measures. Coreg on hold currently until BP is consistently adequate 5. Will need ischemic workup. GHULAM CHAVIS MD 07/27/215: CARDIAC CONSULT ASSESSMENT/PLAN ASSESSMENT/PLAN Patient seen and examined. Agree with MACHINE I TRIMMER's assessment and plan. CP concerning for cardiac etiology Records from [facility] pending Metabolic encephalopathy improved Check 2D echo to assess LVF and rule out WMA Follow ID recommendations Thank you for your consultation LEONARDA MG APRN Jul 27, 2021 10:00 GHULAM CHAVIS MD Jul 27, 2021 22:15
[2021-07-27 10:26] LABS: CHOLESTEROL/HDL RATIO 2.7
--- NOTE | 2021-07-27 11:12 | NUR ---
SS following for discharge planning. SS reviewed pt chart and discussed with pt RN. Pt is from home and is currently on room air. Cardiology and ID following. Pt on IV Rocephin and IV Daptomycin. Not ready. SS will continue to follow for discharge planning.
--- NOTE | 2021-07-27 11:45 | NUR ---
Patient arrived on unit alert and oriented, no complaints of pain at this time. Comfort measures given, will treat blood sugar of 344 as previous nurse did not.
[2021-07-27] MEDS: cefTRIAXone IV Push 2 GM VIAL. IVP SCH (13:27)
--- NOTE | 2021-07-27 15:05 | PDOC ---
Infectious Disease Note Subjective Subjective Patient is alert awake patient is feeling good there is still some headache but much better ROS ROS No nausea vomiting diarrhea chest pain shortness of breath abdominal pain urinary symptoms or bowel symptoms Vital Sign Vital Signs Vital Signs Date Time Temp Pulse Resp B/P (MAP) Pulse Ox O2 Delivery O2 Flow Rate FiO2 07/27/21 14:05 19 95 Room Air 07/27/21 11:25 98.0 75 127/61 (83) 98.0 07/27/21 05:00 3.0 Physical Exam PHYSICAL EXAM GENERAL: Alert, oriented x 3 female, lying in bed comfortably, in no acute distress, appears tired. HEENT: Normocephalic, atraumatic. Anicteric. No thrush. Oral mucosa moist. No sinus tenderness. No runny nose. No oropharyngeal exudate. NECK: Supple, no JVD, no thyromegaly. LUNGS: Clear bilaterally. No wheezing. HEART: S1, S2. No gallops or murmurs. ABDOMEN: Soft, nontender, nondistended. Bowel sounds present. GENITOURINARY: No Elliott in place. EXTREMITIES: No edema, no cyanosis. DERMATOLOGIC: Warm, dry, no generalized rash. NEUROLOGIC: Alert and oriented x 3, grossly nonfocal. PSYCHIATRIC: Calm and cooperative. Labs Lab Laboratory Tests Test 07/26/21 17:58 07/26/21 20:52 07/26/21 23:54 07/27/21 04:00 Glucose (Fingerstick) 321 mg/dL (70-99) 383 mg/dL (70-99) Sodium Level 135 mmol/L (136-145) Potassium Level 4.2 mmol/L (3.5-5.1) Chloride Level 104 mmol/L (98-107) Carbon Dioxide Level 23 mmol/L (21-32) Anion Gap 8 (6-14) Blood Urea Nitrogen 50 mg/dL (7-20) Creatinine 2.1 mg/dL (0.6-1.0) Estimated GFR (Cockcroft-Gault) 23.7 Glucose Level 147 mg/dL (70-99) Calcium Level 8.8 mg/dL (8.5-10.1) Troponin I High Sensitivity 15 ng/L (4-50) 14 ng/L (4-50) Test 07/27/21 04:40 07/27/21 08:06 07/27/21 10:10 07/27/21 11:05 White Blood Count 18.6 x10^3/uL (4.0-11.0) Red Blood Count 3.82 x10^6/uL (3.50-5.40) Hemoglobin 11.3 g/dL (12.0-15.5) Hematocrit 34.6 % (36.0-47.0) Mean Corpuscular Volume 91 fL (79-100) Mean Corpuscular Hemoglobin 30 pg (25-35) Mean Corpuscular Hemoglobin Concent 33 g/dL (31-37) Red Cell Distribution Width 14.0 % (11.5-14.5) Platelet Count 199 x10^3/uL (140-400) Neutrophils (%) (Auto) 89 % (31-73) Lymphocytes (%) (Auto) 7 % (24-48) Monocytes (%) (Auto) 3 % (0-9) Eosinophils (%) (Auto) 0 % (0-3) Basophils (%) (Auto) 0 % (0-3) Neutrophils # (Auto) 16.6 x10^3/uL (1.8-7.7) Lymphocytes # (Auto) 1.4 x10^3/uL (1.0-4.8) Monocytes # (Auto) 0.6 x10^3/uL (0.0-1.1) Eosinophils # (Auto) 0.0 x10^3/uL (0.0-0.7) Basophils # (Auto) 0.1 x10^3/uL (0.0-0.2) Sodium Level 139 mmol/L (136-145) Potassium Level 4.1 mmol/L (3.5-5.1) Chloride Level 104 mmol/L (98-107) Carbon Dioxide Level 26 mmol/L (21-32) Anion Gap 9 (6-14) Blood Urea Nitrogen 46 mg/dL (7-20) Creatinine 1.8 mg/dL (0.6-1.0) Estimated GFR (Cockcroft-Gault) 28.3 BUN/Creatinine Ratio 26 (6-20) Glucose Level 143 mg/dL (70-99) Calcium Level 8.5 mg/dL (8.5-10.1) Total Bilirubin 0.3 mg/dL (0.2-1.0) Aspartate Amino Transf (AST/SGOT) 11 U/L (15-37) Alanine Aminotransferase (ALT/SGPT) 17 U/L (14-59) Alkaline Phosphatase 115 U/L (46-116) Total Protein 5.5 g/dL (6.4-8.2) Albumin 2.4 g/dL (3.4-5.0) Albumin/Globulin Ratio 0.8 (1.0-1.7) Triglycerides Level 116 mg/dL (0-150) Cholesterol Level 134 mg/dL (0-200) LDL Cholesterol, Calculated 61 mg/dL (0-100) VLDL Cholesterol, Calculated 23 mg/dL (0-40) Non-HDL Cholesterol Calculated 84 mg/dL (0-129) HDL Cholesterol 50 mg/dL (40-60) Cholesterol/HDL Ratio 2.7 Thyroid Stimulating Hormone (TSH) 0.321 uIU/mL (0.358-3.74) Glucose (Fingerstick) 267 mg/dL (70-99) 344 mg/dL (70-99) Troponin I High Sensitivity 13 ng/L (4-50) Micro Microbiology 07/25/21 CSF Gram Stain - Final, Complete Objective Assessment IMPRESSION: 1. Fever, aseptic meningitis. 2. Headache with aseptic meningitis. 3. Encephalopathy, resolved, could be metabolic component also. 4. Leukocytosis. 5. Acute kidney injury with underlying chronic kidney disease. 6. Diabetes mellitus, poorly controlled. 7. Coronary artery disease. 8. Chronic pain. Plan Plan of Care Continue Rocephin discontinue daptomycin continue supportive care PT OT VANDANA VALLE MD Jul 27, 2021 15:05
[2021-07-27] MEDS: CLOPIDOGREL BISULFATE 75 MG TABLET PO SCH (15:49)
[2021-07-27] MEDS: ASPIRIN ENTERIC COATED 81 MG TABLET.DR. PO SCH (15:49)
--- NOTE | 2021-07-27 17:25 | NUR ---
PATIENT SLEEPING AT THIS TIME AND DID NOT CONSUME DINNER, MEAL DOSE INSULIN HELD AT THIS TIME.
[2021-07-27] MEDS: ATORVASTATIN CALCIUM 40 MG TABLET. PO SCH (20:20)
[2021-07-28] MEDS: HYDROmorphone 2 MG/ML INJ. IVP PRN ×5 (00:59→21:02)
[2021-07-28] MEDS: POTASSIUM CL 20MEQ-0.45% NACL 1,000 ML IV SCH (02:28)
--- NOTE | 2021-07-28 02:53 | PN ---
DATE: 07/27/2021 SUBJECTIVE: The patient is resting, slightly propped up in bed, no apparent distress. She is definitely more awake, alert, has been complaining of chest pain. We did treat her with nitroglycerin as well as morphine and hydromorphone. She has had an EKG done, which was unrevealing and she has 2 sets of cardiac enzymes showed troponin I high sensitivity was 15 and 14 respectively. We did consult the Cardiology team for evaluation and treatment. PHYSICAL EXAMINATION: GENERAL: When I saw her this morning, she was somewhat pale, but no jaundiced, cyanosed or thyromegaly. No jugular venous distention. No lower limb edema. VITAL SIGNS: Her heart rate was 82, blood pressure 145/81, temperature was 98.2, respiratory rate was 18 and oxygen saturation was 94%. HEAD, EYES, EARS, NOSE, AND THROAT: Normocephalic, atraumatic. NECK: Supple. HEART: Showed normal first and second heart sounds. No gallop, rub or murmur. CHEST: Clear to auscultation, no crepitation or rhonchi. ABDOMEN: Distended, soft, nontender. NEUROLOGIC: She was grossly intact. Her intake over the last 24 hours was 1400, output was 914. LABORATORY DATA: As of this morning, her serum sodium was 139, potassium 4.1, chloride 104, bicarbonate 26, anion gap of 9, BUN 46, creatinine 1.6, estimated GFR was 28 mL per minute. Her glucose 143, calcium was 8.5. Total bilirubin, AST, ALT, alkaline phosphatase were normal. Total protein 5.5, albumin was 2.4. Her white cell count went up to 18,600, hemoglobin 11, hematocrit 34, MCV 91, and platelet count of 199,000. She did have 2 sets of cardiac enzymes that were normal. ASSESSMENT: 1. Altered mental status with fever up to 103. Neck rigidity for which we transferred her to [facility] for possible meningitis. Her CSF is consistent with that, although there are no organisms and the cultures are still pending at the time of this dictation. Other medical problems include her level of consciousness has really dramatically improved. 2. The patient started complaining of chest pain that has not responded to nitroglycerin and even morphine and hydromorphone for which we did consult the Cardiology. The patient is known to have coronary artery disease with multiple stents placed at [facility]. 3. Hypertension. 4. Hyperlipidemia. 5. Type 2 diabetes mellitus that is slightly better controlled. The patient also known to have chronic kidney disease. She did have an episode of hypotension yesterday and we gave her a liter of normal saline and her blood pressure improved. Her kidney function also improved and her creatinine is down to 1.8. PLAN: To continue with IV antibiotic in the form of ceftriaxone as well as the daptomycin. Continue with all other medication. Continue to monitor blood sugar and adjust insulin as needed. She is scheduled for transthoracic echocardiogram and ischemic workup. OCHOA/ARA DR: Geo TID: [id number]
[2021-07-28 03:00] VITALS: BP 172/69
[2021-07-28 07:00] VITALS: BP 178/86
--- NOTE | 2021-07-28 07:18 | PDOC ---
PROGRESS NOTES Date of Service: DATE: 07/28/21 TIME: 07:18 Subjective Subjective Denied any chest pain today, c/o headache Objective Objective Vital Signs Date Time Temp Pulse Resp B/P (MAP) Pulse Ox O2 Delivery O2 Flow Rate FiO2 07/28/21 03:00 97.7 77 16 172/69 (103) 100 Room Air 97.7 07/27/21 20:00 3.0 Intake and Output 07/28/21 06:59 Intake Total 800 ml Output Total 700 ml Balance 100 ml Intake Oral 800 ml Output Urine Total 700 ml Physical Exam Abdomen: Soft, No tenderness Heart: Regular rate (SR), Normal S1, Normal S2, No murmurs Extremities: No cyanosis, No edema General: Alert, Oriented X3, Cooperative, No acute distress HEENT: Atraumatic, Mucous membr. moist/pink Lungs: Clear to auscultation, Normal air movement MUSCULOSKELETAL: Osteoarthritic changes both hands Neuro: Normal speech, Sensation intact Psych/Mental Status: Mental status NL, Mood NL Skin: No breakdown, No significant lesion Assessment Assessment 1. Fever: none further. 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 S/P LP 07/26. presently no MORAN. 2. Metabolic encephalopathy: resolved. could also be related to 3. Chest pain: concerning for cardiac etiology. Myocardial infarction ruled out 4. CAD: last stent placed at [facility] 3 yrs ago and will obtain records. 8 total stents 5. Hypertension: controlled 6. Hyperlipidemia 7. DM2: insulin dependent 8. Hxof gastroparesis 9. CKD3-4: reports it was as high as 4 in Cr in the past 10. Hypotension: possibly from BP med and volume depletion. resolved after IVF 11. Hx of PE/DVT remote with IVC filter Recommendations 1. NTG SL PRN. 2. TTE pending 3. Plavix on hold due to recent LP. Resume ASA, will clarify with IR as far as starting. 4. Secondary prevention measures. Coreg on hold currently until BP is consistently adequate 5. Will need ischemic workup. Comment Review of Relevant I have reviewed the following items remy (where applicable) has been applied. Labs Laboratory Tests Test 07/27/21 08:06 07/27/21 10:10 07/27/21 11:05 07/27/21 16:23 Glucose (Fingerstick) 267 mg/dL (70-99) 344 mg/dL (70-99) 92 mg/dL (70-99) Troponin I High Sensitivity 13 ng/L (4-50) Test 07/27/21 19:46 07/28/21 07:13 Glucose (Fingerstick) 97 mg/dL (70-99) 132 mg/dL (70-99) Microbiology 07/25/21 CSF Gram Stain - Final, Complete Medications Current Medications Aspirin (Ecotrin) 81 mg DAILYWBKFT PO Last administered on 07/27/21at 15:49; Start 07/27/21 at 14:15 Clopidogrel Bisulfate (Plavix) 75 mg DAILYWBKFT PO Last administered on 07/27/21 15:49; Start 07/27/21 at 14:15 Insulin Glargine (Lantus Syringe) 30 unit DAILY SQ Last administered on 07/27/21at 09:03; Start 07/27/21 at 09:00 Metoclopramide HCl (Reglan) 5 mg TIDACHC PO Last administered on 07/27/21at 20:21; Start 07/27/21 at 07:30 Nitroglycerin (Nitrostat) 0.4 mg PRN Q5MIN PRN SL CHEST PAIN Last administered on 07/27/21at 09:34; Start 07/27/21 at 09:30 Pantoprazole Sodium (PROTONIX VIAL for IV PUSH) 40 mg DAILYAC IVP Last administered on 07/27/21at 09:01; Start 07/27/21 at 07:30 Vitals/I & O Vital Sign - Last 24 Hours 07/27/21 07/27/21 07/27/21 07/27/21 07:59 08:00 09:34 09:34 Temp 98.2 98.2 Pulse 79 82 Resp 18 B/P (MAP) 161/76 (104) 145/81 Pulse Ox 94 O2 Delivery Room Air Room Air Room Air 07/27/21 07/27/21 07/27/21 07/27/21 10:31 11:25 13:27 14:05 Temp 98.4 98.0 98.4 98.0 Pulse 81 75 Resp 17 16 19 19 B/P (MAP) 153/82 (105) 127/61 (83) Pulse Ox 95 97 97 95 O2 Delivery Room Air Room Air Room Air Room Air 407/27/21 07/27/21 07/27/21 15:00 19:00 20:00 20:20 Temp 97.4 97.9 97.4 97.9 Pulse 81 92 Resp 16 16 B/P (MAP) 141/67 (91) 116/65 (82) Pulse Ox 93 90 O2 Delivery Room Air Room Air Room Air Room Air O2 Flow Rate 3.0 07/27/21 07/27/21 07/28/21 07/28/21 20:50 23:00 00:59 01:29 Temp 97.4 97.4 Pulse 81 Resp 16 B/P (MAP) 127/66 (86) Pulse Ox 99 O2 Delivery Room Air Room Air Nasal Cannula Nasal Cannula 07/28/21 03:00 Temp 97.7 97.7 Pulse 77 Resp 16 B/P (MAP) 172/69 (103) Pulse Ox 100 O2 Delivery Room Air Intake and Output 07/27/21 07/27/21 07/28/21 14:59 22:59 06:59 Intake Total 500 ml 300 ml Output Total 600 ml 100 ml Balance 500 ml -600 ml 200 ml GHULAM CHAVIS MD Jul 28, 2021 07:18
[2021-07-28] MEDS: INSULIN LISPRO 300 UNITS/3 ML VIAL. SQ SCH ×7 (07:30→21:00)
[2021-07-28] MEDS: LACTOBACILLUS RHAMNOSUS GG 1 CAPSULE. PO SCH ×2 (09:39→20:53)
[2021-07-28] MEDS: METOCLOPRAMIDE 5 MG TABLET. PO SCH ×4 (09:39→20:54)
[2021-07-28] MEDS: FOLIC ACID 1 MG TABLET. PO SCH (09:39)
[2021-07-28] MEDS: CLOPIDOGREL BISULFATE 75 MG TABLET PO SCH (09:39)
[2021-07-28] MEDS: ASPIRIN ENTERIC COATED 81 MG TABLET.DR. PO SCH (09:39)
[2021-07-28] MEDS: DOCUSATE SODIUM 100 MG CAPSULE. PO SCH ×2 (09:40→20:54)
[2021-07-28] MEDS: DULoxetine HCL 20 MG CAPSULE.DR PO SCH (09:40)
[2021-07-28] MEDS: ALLOPURINOL 100 MG TABLET. PO SCH (09:40)
[2021-07-28] MEDS: PANTOPRAZOLE IV PUSH 40 MG VIAL. IVP SCH (09:40)
[2021-07-28] MEDS: GABAPENTIN 300 MG CAPSULE. PO SCH ×2 (09:40→20:54)
[2021-07-28] MEDS: CYANOCOBALAMIN (VITAMIN B-12) 1,000 MCG TABLET. PO SCH (09:40)
[2021-07-28] MEDS: INSULIN GLARGINE SYRINGE. SQ SCH (09:45)
--- NOTE | 2021-07-28 10:12 | PN ---
DATE: 07/28/2021 SUBJECTIVE: The patient is resting, slightly propped up in bed, in no apparent distress. She is awake, alert, has just finished eating her breakfast. On questioning her, she continued to complain of chest pain, but clinically, seemed to be very comfortable. PHYSICAL EXAMINATION: GENERAL: When I examined her, she looked well, somewhat pale, but no jaundice, cyanosis or thyromegaly. No jugular venous distention. No limb edema. VITAL SIGNS: Her heart rate was 76, blood pressure is 178/86, temperature 97.7, respiratory rate 20, and oxygen saturation was 97% on room air. HEAD, EYES, EARS, NOSE, AND THROAT: Normocephalic, atraumatic. NECK: Supple. HEART: Showed normal first and second heart sounds. No gallop, rub or murmur. CHEST: Clear to auscultation, no crepitation or rhonchi. ABDOMEN: Distended, soft, nontender. NEUROLOGIC: She is grossly intact. Her intake was 3670, output was 320. LABORATORY DATA: She has no lab work done this morning. As of yesterday, her white cell count was 18.6, hemoglobin 11, hematocrit 34, MCV 91, and platelet count of 199,000 with normal manual differential. Her chemistry showed a serum sodium 139, potassium 4.1, chloride 104, bicarbonate 26, anion gap of 9, BUN of 46, creatinine 1.8. Estimated GFR was 28 mL per minute. Her glucose 143, calcium was 8.5. Total bilirubin, AST, ALT, alkaline phosphatase were normal. Total protein 5.5, albumin was 2.4. TSH is low at 0.321. Her CSF anaerobic and aerobic cultures so far showed no growth. ASSESSMENT: 1. Altered mental status with fever up to 103, neck rigidity for which we transferred her to [facility] for possible meningitis. Her CSF is consistent with that, although there are no organisms and the cultures are still pending at the time of this dictation. 2. The patient now more is lucid and oriented to time, place and person, back to her baseline. 3. The patient has started complaining of chest pain that has not responded to nitroglycerin and even morphine and she is now on hydromorphone. She was seen by the nc machinist. 4. The patient is known to have coronary artery disease with multiple stents placed at [facility]. 5. Hypertension. 6. Hyperlipidemia. 7. Type 2 diabetes mellitus, slightly better controlled. 8. Chronic kidney disease. PLAN: Obviously to continue with ceftriaxone. Her daptomycin was discontinued. Continue with all her other medications. Continue to monitor her blood sugar and adjust insulin as needed. The patient apparently is scheduled for stress test and possible cardiac catheterization also. KIERAN DR: Geo TID: [id number]
[2021-07-28 11:00] VITALS: BP 108/66
[2021-07-28] MEDS: cefTRIAXone IV Push 2 GM VIAL. IVP SCH (14:18)
[2021-07-28 15:00] VITALS: BP 133/75
--- NOTE | 2021-07-28 16:20 | PDOC ---
Infectious Disease Note Subjective: Subjective Patient is alert awake patient is feeling good there is still some headache but much better Vital Signs: Vital Signs Vital Signs Date Time Temp Pulse Resp B/P (MAP) Pulse Ox O2 Delivery O2 Flow Rate FiO2 07/28/21 15:00 97.7 87 20 133/75 (94) 96 Room Air 97.7 07/27/21 20:00 3.0 Physical Exam: PHYSICAL EXAM GENERAL: Alert, oriented x 3 female, lying in bed comfortably, in no acute distress, appears tired. HEENT: Normocephalic, atraumatic. Anicteric. No thrush. Oral mucosa moist. No sinus tenderness. No runny nose. No oropharyngeal exudate. NECK: Supple, no JVD, no thyromegaly. LUNGS: Clear bilaterally. No wheezing. HEART: S1, S2. No gallops or murmurs. ABDOMEN: Soft, nontender, nondistended. Bowel sounds present. GENITOURINARY: No Elliott in place. EXTREMITIES: No edema, no cyanosis. DERMATOLOGIC: Warm, dry, no generalized rash. NEUROLOGIC: Alert and oriented x 3, grossly nonfocal. PSYCHIATRIC: Calm and cooperative. Medications: Inpatient Meds: Medications reviewed. Labs: Lab Laboratory Tests Test 07/27/21 16:23 07/27/21 19:46 07/28/21 07:13 07/28/21 10:40 Glucose (Fingerstick) 92 mg/dL (70-99) 97 mg/dL (70-99) 132 mg/dL (70-99) 284 mg/dL (70-99) Objective: Assessment: 1. Fever, aseptic meningitis. Improved 2. Headache with aseptic meningitis.Improved,csf cult neg, strep pneu neg 3. Encephalopathy, resolved, could be metabolic component ,improved 4. Leukocytosis.had steroids 5. Acute kidney injury with underlying chronic kidney disease. 6. Diabetes mellitus, poorly controlled. 7. Coronary artery disease. 8. Chronic pain. Plan: Plan of Care Continue Rocephin continue supportive care Monitor labs check c diff if diarrhea PT OT JESS VALLE MD Jul 28, 2021 16:20
[2021-07-28 19:00] VITALS: BP 128/61
[2021-07-28] MEDS: ATORVASTATIN CALCIUM 40 MG TABLET. PO SCH (20:54)
[2021-07-28 23:00] VITALS: BP 145/70
[2021-07-29 03:00] VITALS: BP 129/81
[2021-07-29] MEDS: HYDROmorphone 2 MG/ML INJ. IVP PRN ×5 (03:17→21:38)
[2021-07-29 07:00] VITALS: BP 173/71
[2021-07-29] MEDS: INSULIN LISPRO 300 UNITS/3 ML VIAL. SQ SCH ×7 (07:30→21:00)
[2021-07-29] MEDS: PANTOPRAZOLE IV PUSH 40 MG VIAL. IVP SCH (08:37)
[2021-07-29] MEDS: NITROGLYCERIN SUBLINGUAL 0.4 MG BOTTLE OF 25. SL PRN ×3 (08:37→21:31)
[2021-07-29] MEDS: DULoxetine HCL 20 MG CAPSULE.DR PO SCH (08:38)
[2021-07-29] MEDS: ASPIRIN ENTERIC COATED 81 MG TABLET.DR. PO SCH (08:39)
[2021-07-29] MEDS: LACTOBACILLUS RHAMNOSUS GG 1 CAPSULE. PO SCH ×2 (08:39→21:26)
[2021-07-29] MEDS: DOCUSATE SODIUM 100 MG CAPSULE. PO SCH ×2 (08:39→21:26)
[2021-07-29] MEDS: CLOPIDOGREL BISULFATE 75 MG TABLET PO SCH (08:40)
[2021-07-29] MEDS: ALLOPURINOL 100 MG TABLET. PO SCH (08:40)
[2021-07-29] MEDS: METOCLOPRAMIDE 5 MG TABLET. PO SCH ×4 (08:40→21:26)
[2021-07-29] MEDS: FOLIC ACID 1 MG TABLET. PO SCH (08:40)
[2021-07-29] MEDS: GABAPENTIN 300 MG CAPSULE. PO SCH ×2 (08:40→21:26)
[2021-07-29] MEDS: CYANOCOBALAMIN (VITAMIN B-12) 1,000 MCG TABLET. PO SCH (08:59)
[2021-07-29] MEDS: INSULIN GLARGINE SYRINGE. SQ SCH (08:59)
--- NOTE | 2021-07-29 09:23 | PDOC ---
PROGRESS NOTES Date of Service: DATE: 07/29/21 TIME: 09:23 Subjective Subjective Had chest pressure earlier today that was relieved with nitroglycerin sublingually Objective Objective Vital Signs Date Time Temp Pulse Resp B/P (MAP) Pulse Ox O2 Delivery O2 Flow Rate FiO2 07/29/21 08:38 18 Room Air 07/29/21 08:37 88 129/81 07/29/21 07:00 98.3 94.0 98.3 07/29/21 03:00 97 Intake and Output 07/29/21 07:00 Intake Total 500 ml Output Total 1700 ml Balance -1200 ml Intake Oral 500 ml Output Urine Total 1700 ml Physical Exam Abdomen: Soft, No tenderness Heart: Regular rate (SR), Normal S1, Normal S2, No murmurs Extremities: No cyanosis, No edema General: Alert, Oriented X3, Cooperative, No acute distress HEENT: Atraumatic, Mucous membr. moist/pink Lungs: Clear to auscultation, Normal air movement MUSCULOSKELETAL: Osteoarthritic changes both hands Neuro: Normal speech, Sensation intact Psych/Mental Status: Mental status NL, Mood NL Skin: No breakdown, No significant lesion Assessment Assessment 1. Fever: none further. being suspected for aseptic meningitis ID following. S/P LP 07/26. presently no MORAN. 2. Metabolic encephalopathy: resolved. could also be related to 3. Chest pain: concerning for cardiac etiology. Myocardial infarction ruled out 4. CAD: last stent placed at [facility] 3 yrs ago and will obtain records. 8 total stents 5. Hypertension: controlled 6. Hyperlipidemia 7. DM2: insulin dependent 8. Hxof gastroparesis 9. CKD3-4: reports it was as high as 4 in Cr in the past 10. Hypotension: possibly from BP med and volume depletion. resolved after IVF 11. Hx of PE/DVT remote with IVC filter Recommendations 1. Plan for cardiac catheterization and possible angioplasty tomorrow. Risks and benefits explained.. 2. Secondary prevention measures. 3. Continue current treatment per ID team Comment Review of Relevant I have reviewed the following items remy (where applicable) has been applied. Labs Laboratory Tests Test 07/28/21 10:40 07/28/21 16:36 07/28/21 21:00 07/29/21 07:36 Glucose (Fingerstick) 284 mg/dL (70-99) 243 mg/dL (70-99) 112 mg/dL (70-99) 107 mg/dL (70-99) Microbiology 07/25/21 CSF Gram Stain - Final, Complete Vitals/I & O Vital Sign - Last 24 Hours 07/28/21 07/28/21 07/28/21 07/28/21 09:37 10:40 11:00 12:17 Temp 97.7 97.7 Pulse 80 Resp 16 18 20 18 B/P (MAP) 108/66 (80) Pulse Ox 96 O2 Delivery Room Air Room Air 07/28/21 07/28/21 07/28/21 07/28/21 15:00 16:50 17:02 19:00 Temp 97.7 97.7 Pulse 87 Resp 20 18 18 B/P (MAP) 133/75 (94) Pulse Ox 96 O2 Delivery Room Air Room Air 07/28/21 07/28/21 07/28/21 07/28/21 19:00 20:00 21:02 21:32 Temp 97.6 97.6 Pulse 89 Resp 14 B/P (MAP) 128/61 (83) Pulse Ox 98 O2 Delivery Room Air Room Air Room Air Room Air 07/28/21 07/29/21 07/29/21 07/29/21 23:00 03:00 03:17 03:47 Temp 97.8 97.8 Pulse 83 88 Resp 14 15 B/P (MAP) 145/70 (95) 129/81 (97) Pulse Ox 99 97 O2 Delivery BiPAP/CPAP Room Air Nasal Cannula Room Air 07/29/21 07/29/21 07/29/21 07:00 08:37 08:38 Temp 98.3 98.3 Pulse 86 88 Resp 14 18 B/P (MAP) 173/71 (105) 129/81 O2 Delivery Room Air Room Air O2 Flow Rate 94.0 Intake and Output 07/28/21 07/28/21 07/29/21 15:00 23:00 07:00 Intake Total 300 ml 200 ml Output Total 900 ml 650 ml 150 ml Balance -600 ml -450 ml -150 ml GHULAM CHAVIS MD Jul 29, 2021 09:23
--- NOTE | 2021-07-29 09:36 | PN ---
DATE: 07/29/2021 SUBJECTIVE: The patient is resting, slightly propped up in bed, in no apparent distress. She apparently continued to complain of chest pain that required nitroglycerin and IV hydromorphone. She has had 3 sets of troponin I high sensitivity. All of them has ruled out myocardial infarction. She apparently has 8 stents, the last one was done in 3 years ago at [facility]. She continues to be afebrile and all her cultures done at [facility] and here are also far negative including blood and CSF. PHYSICAL EXAMINATION: GENERAL: When I examined her this morning, she looked well and was clearly in no apparent respiratory distress. She was somewhat pale, not jaundiced, cyanosed or thyromegaly. No jugular venous distention. No lower limb edema. VITAL SIGNS: Her heart rate this morning was 88, blood pressure is 129/81, temperature 97.8, respiratory rate was 18 and oxygen saturation was 97% on room air. The rest of exam is stable, has not really changed. LABORATORY DATA: Her blood sugar seems to be much better controlled. Her lab work is still pending at the time of this dictation. ASSESSMENT: 1. Altered mental status with fever up to 103, neck rigidity, which she underwent lumbar puncture; however, there are so far no organisms grown from blood or CSF cultures and gram stain was negative, making it likely Aseptic meningitis. 2. Questionable metabolic encephalopathy that has completely resolved. 3. Chest pain, acute myocardial infarction is ruled out. The patient is scheduled for stress test and perhaps cardiac catheterization. 4. The patient is known to have coronary artery disease with multiple stents, the last 1 was about 3 years ago done at [facility]placed by [facility]. 5. Hypertension. 6. Hyperlipidemia. 7. Type 2 diabetes mellitus, seems to be much better controlled. 8. Chronic kidney disease. PLAN: To continue with her current medication. She continues to be on IV ceftriaxone. She apparently is scheduled for a nuclear stress test and perhaps cardiac catheterization if deemed necessary tomorrow. OCHOA DR: Geo TID: [id number]
[2021-07-29 10:11] LABS: BASO % 0 % (0-3); EOS # 0.3 x10^3/uL (0.0-0.7); EOS % 5 % (0-3); HEMATOCRIT 34.4 % (36.0-47.0); HEMOGLOBIN 11.4 g/dL (12.0-15.5); LYMPH # 1.9 x10^3/uL (1.0-4.8); LYMPH % 29 % (24-48); MEAN CORPUSCULAR HEMOGLOBIN 30 pg (25-35); MEAN CORPUSCULAR HGB CONC 33 g/dL (31-37); MEAN CORPUSCULAR VOLUME 91 fL (79-100); MONO # 0.4 x10^3/uL (0.0-1.1); MONO % 6 % (0-9); NEUT # 3.8 x10^3/uL (1.8-7.7); NEUT % 60 % (31-73); PLATELET COUNT 188 x10^3/uL (140-400); RED CELL DISTRIBUTION WIDTH 13.7 % (11.5-14.5); WHITE BLOOD COUNT 6.4 x10^3/uL (4.0-11.0)
[2021-07-29 10:29] LABS: ALBUMIN 2.3 g/dL (3.4-5.0); ALBUMIN/GLOBULIN RATIO 0.7 (1.0-1.7); CALCIUM 8.6 mg/dL (8.5-10.1); CREATININE 1.4 mg/dL (0.6-1.0); GFR 37.9; POTASSIUM 4.7 mmol/L (3.5-5.1); TOTAL BILIRUBIN 0.2 mg/dL (0.2-1.0); TOTAL PROTEIN 5.7 g/dL (6.4-8.2)
[2021-07-29 11:00] VITALS: BP 145/61
[2021-07-29] MEDS: cefTRIAXone IV Push 2 GM VIAL. IVP SCH (13:18)
[2021-07-29 15:00] VITALS: BP 155/75
--- NOTE | 2021-07-29 16:09 | PDOC ---
Infectious Disease Note Subjective: Subjective Patient is alert awake Complains of chest pain, back pain, headache Denies any fever, chills, nausea, vomiting, diarrhea, abdominal pain, symptoms Vital Signs: Vital Signs Vital Signs Date Time Temp Pulse Resp B/P (MAP) Pulse Ox O2 Delivery O2 Flow Rate FiO2 07/29/21 12:40 20 95 Room Air 07/29/21 11:00 98.1 88 145/61 (89) 98.1 07/29/21 07:00 94.0 Physical Exam: PHYSICAL EXAM GENERAL: Alert, oriented x 3 female, lying in bed comfortably, in no acute distress, appears tired. HEENT: Normocephalic, atraumatic. Anicteric. No thrush. Oral mucosa moist. No sinus tenderness. No runny nose. No oropharyngeal exudate. NECK: Supple, no JVD, no thyromegaly. LUNGS: Clear bilaterally. No wheezing. HEART: S1, S2. No gallops or murmurs. ABDOMEN: Soft, nontender, nondistended. Bowel sounds present. GENITOURINARY: No Elliott in place. EXTREMITIES: No edema, no cyanosis. DERMATOLOGIC: Warm, dry, no generalized rash. NEUROLOGIC: Alert and oriented x 3, grossly nonfocal. PSYCHIATRIC: Calm and cooperative. Medications: Inpatient Meds: Medications reviewed. Labs: Lab Laboratory Tests Test 07/28/21 16:36 07/28/21 21:00 07/29/21 07:36 07/29/21 09:10 Glucose (Fingerstick) 243 mg/dL (70-99) 112 mg/dL (70-99) 107 mg/dL (70-99) White Blood Count 6.4 x10^3/uL (4.0-11.0) Red Blood Count 3.80 x10^6/uL (3.50-5.40) Hemoglobin 11.4 g/dL (12.0-15.5) Hematocrit 34.4 % (36.0-47.0) Mean Corpuscular Volume 91 fL (79-100) Mean Corpuscular Hemoglobin 30 pg (25-35) Mean Corpuscular Hemoglobin Concent 33 g/dL (31-37) Red Cell Distribution Width 13.7 % (11.5-14.5) Platelet Count 188 x10^3/uL (140-400) Neutrophils (%) (Auto) 60 % (31-73) Lymphocytes (%) (Auto) 29 % (24-48) Monocytes (%) (Auto) 6 % (0-9) Eosinophils (%) (Auto) 5 % (0-3) Basophils (%) (Auto) 0 % (0-3) Neutrophils # (Auto) 3.8 x10^3/uL (1.8-7.7) Lymphocytes # (Auto) 1.9 x10^3/uL (1.0-4.8) Monocytes # (Auto) 0.4 x10^3/uL (0.0-1.1) Eosinophils # (Auto) 0.3 x10^3/uL (0.0-0.7) Basophils # (Auto) 0.0 x10^3/uL (0.0-0.2) Sodium Level 138 mmol/L (136-145) Potassium Level 4.7 mmol/L (3.5-5.1) Chloride Level 106 mmol/L (98-107) Carbon Dioxide Level 25 mmol/L (21-32) Anion Gap 7 (6-14) Blood Urea Nitrogen 41 mg/dL (7-20) Creatinine 1.4 mg/dL (0.6-1.0) Estimated GFR (Cockcroft-Gault) 37.9 BUN/Creatinine Ratio 29 (6-20) Glucose Level 145 mg/dL (70-99) Calcium Level 8.6 mg/dL (8.5-10.1) Total Bilirubin 0.2 mg/dL (0.2-1.0) Aspartate Amino Transf (AST/SGOT) 39 U/L (15-37) Alanine Aminotransferase (ALT/SGPT) 43 U/L (14-59) Alkaline Phosphatase 104 U/L (46-116) Total Protein 5.7 g/dL (6.4-8.2) Albumin 2.3 g/dL (3.4-5.0) Albumin/Globulin Ratio 0.7 (1.0-1.7) Test 07/29/21 12:00 Glucose (Fingerstick) 218 mg/dL (70-99) Objective: Assessment: 1. Fever, aseptic meningitis. Improved 2. Headache with aseptic meningitis.Improved,csf cult neg, strep pneu neg 3. Encephalopathy, resolved, could be metabolic component ,improved 4. Leukocytosis.had steroids 5. Acute kidney injury with underlying chronic kidney disease. 6. Diabetes mellitus, poorly controlled. 7. Coronary artery disease. 8. Chronic pain. Plan: Plan of Care Continue Rocephin continue supportive care Monitor labs check c diff if diarrhea PT OT JESS VALLE MD Jul 29, 2021 16:09
[2021-07-29 19:44] VITALS: BP 122/62
[2021-07-29] MEDS: ATORVASTATIN CALCIUM 40 MG TABLET. PO SCH (21:26)
[2021-07-29 23:52] VITALS: BP 150/62
[2021-07-30] VITALS (18 sets, daily range): BP systolic 129–190; BP diastolic 60–133
[2021-07-30] MEDS: HYDROmorphone 2 MG/ML INJ. IVP PRN ×5 (03:29→19:47)
[2021-07-30] MEDS: LABETALOL 20 MG/4 ML DISP.SYRIN. IVP PRN ×2 (03:36→14:27)
[2021-07-30] MEDS: NITROGLYCERIN SUBLINGUAL 0.4 MG BOTTLE OF 25. SL PRN ×2 (07:26→07:49)
[2021-07-30] MEDS: METOCLOPRAMIDE 5 MG TABLET. PO SCH ×4 (07:30→21:08)
[2021-07-30] MEDS: INSULIN LISPRO 300 UNITS/3 ML VIAL. SQ SCH ×7 (07:30→21:11)
[2021-07-30] MEDS: PANTOPRAZOLE IV PUSH 40 MG VIAL. IVP SCH (07:49)
[2021-07-30] MEDS: CLOPIDOGREL BISULFATE 75 MG TABLET PO SCH (08:00)
[2021-07-30] MEDS: ASPIRIN ENTERIC COATED 81 MG TABLET.DR. PO SCH (08:00)
[2021-07-30] MEDS: DOCUSATE SODIUM 100 MG CAPSULE. PO SCH ×2 (08:19→21:08)
[2021-07-30] MEDS: LACTOBACILLUS RHAMNOSUS GG 1 CAPSULE. PO SCH ×2 (08:20→21:08)
[2021-07-30] MEDS: DULoxetine HCL 20 MG CAPSULE.DR PO SCH (08:20)
[2021-07-30] MEDS: FOLIC ACID 1 MG TABLET. PO SCH (08:20)
[2021-07-30] MEDS: CYANOCOBALAMIN (VITAMIN B-12) 1,000 MCG TABLET. PO SCH (08:20)
[2021-07-30] MEDS: GABAPENTIN 300 MG CAPSULE. PO SCH ×2 (08:20→21:09)
[2021-07-30] MEDS: ALLOPURINOL 100 MG TABLET. PO SCH (08:21)
[2021-07-30] MEDS: INSULIN GLARGINE SYRINGE. SQ SCH (09:08)
[2021-07-30] MEDS ORDERED: LIDOCAINE 1% PF 2 ML VIAL. ONE (09:32)
[2021-07-30] MEDS ORDERED: fentaNYL PF VIAL 100 MCG/2 ML VIAL ONE (09:35)
[2021-07-30] MEDS ORDERED: HEPARIN for IV BOLUS 10,000 UNIT/10 ML VIAL. ONE (09:36)
[2021-07-30] MEDS ORDERED: MIDAZOLAM HCL/PF 2 MG/2 ML VIAL. ONE ×2 (09:36→10:18)
[2021-07-30] MEDS ORDERED: NITROGLYCERIN 200 MCG/2 ML SYRINGE FOR CATH/VASC LAB. ONE ×2 (09:36→10:17)
[2021-07-30] MEDS ORDERED: VERAPAMIL 5 MG/2 ML VIAL. ONE (09:36)
--- NOTE | 2021-07-30 09:47 | PN ---
DATE: 07/30/2021 SUBJECTIVE: The patient is resting, slightly propped up in bed, in no apparent distress. She is awake, alert. On questioning her, she continued to complain of severe chest pain. She is apparently scheduled for left heart catheterization, sometimes today. She denied any headache. She has been afebrile throughout her stay here and her white cell count came down from 18.6 to 6.4, so far, all her cultures including the CSF and blood cultures are negative. PHYSICAL EXAMINATION: GENERAL: When I examined her this morning, she was somewhat pale, not jaundiced, cyanosed or thyromegaly. No jugular venous distention. No lower limb edema. VITAL SIGNS: Her heart rate was 79, blood pressure was 129/60, temperature 97.9, respiratory rate was 20 and her oxygen saturation was 94% on room air. HEAD, EYES, EARS, NOSE, AND THROAT: She is normocephalic, atraumatic. NECK: Supple. HEART: Normal first and second heart sounds. No gallop, rub or murmur. CHEST: Clear to auscultation, no crepitation or rhonchi. ABDOMEN: Distended, soft, nontender. NEUROLOGIC: She is awake, alert, responding appropriately. All cranial nerves intact. She moves extremities without difficulty. She ambulates with a walker. Her intake was 500, output was 1700. LABORATORY DATA: Her lab work as of yesterday showed a white cell count of 8.4, hemoglobin 11, hematocrit 34, MCV 91, and platelet count of 188,000 with normal manual differential. Her serum sodium was 138, potassium 4.7, chloride 106, bicarbonate 25, anion gap of 7, BUN 41, creatinine 1.4. Estimated GFR was 78 mL per minute. Her glucose 145, calcium was 8.6. Total bilirubin, AST, ALT, alkaline phosphatase were normal. Total protein 5.7, albumin was 2.3. ASSESSMENT: 1. Altered mental status with fever and neck rigidity for which she underwent a lumbar puncture with the findings are most likely consistent with aseptic meningitis, CSF, gram stain culture as well as blood cultures are so far negative. 2. Questionable metabolic encephalopathy that has completely resolved. 3. Chest pain, acute myocardial infarction was ruled out. Her pain is somewhat atypical; however, she is now scheduled for left heart catheterization and revascularization if deemed necessary. 4. The patient is known to have coronary artery disease, status post multiple stents, the last 1 was about 3 years ago done at [facility]. She has a total of 8 stents. 5. Hypertension. 6. Hyperlipidemia. 7. Type 2 diabetes mellitus, seems to be much better controlled. 8. Acute on chronic kidney injury. Her creatinine came down from 2.1 to 1.4. PLAN: Obvious to continue with all his current medication. Continue with IV ceftriaxone as per Infectious Disease specialist. Await the result of the left heart catheterization. Meanwhile, continue with physical and occupational therapy. OCHOA DR: Geo TID: [id number]
--- NOTE | 2021-07-30 09:52 | PDOC ---
MODERATE SEDATION ASSESSMENT RISKS/ALTERNATIVES Risks/Alternatives Risks and alternatives of this type of sedation and procedure discussed with: RISK/ALTERNATIVES: Patient H & P ON CHART H & P H & P on chart and reviewed for co-morbid conditions and appropriate labs. H&P ON CHART: Yes STATUS PREG STATUS ASSESSED: N/A MEDS/ALLERGIES REVIEWED Meds/Allergies Reviewed Medications and Allergies including time and route of recently administered narcotics and sedatives. MEDS/ALLERGIES REVIEWED: Yes ASA RATING ASA RATING: II AIRWAY ASSESSMENT Airway Assessment Airway patency, oral function limitations, presence of caps, crowns, dentures, partials, and ability to extend neck assessed. AIRWAY ASSESSMENT: Yes MALLAMPATI SCORE MALLAMPATI SCORE: II PRE-SEDATION ASSESSMENT PRE-SEDATION ASSESSMENT: Yes GHULAM CHAVIS MD Jul 30, 2021 09:52
[2021-07-30] MEDS ORDERED: BIVALIRUDIN 250 MG VIAL. IVP ONE ×2 (10:08→10:45)
[2021-07-30] MEDS ORDERED: IODIXANOL 320 MG/ML 100 ML VIAL. ONE (10:32)
[2021-07-30] MEDS ORDERED: NITROGLYCERIN 200 MCG/2 ML SYRINGE FOR CATH/VASC LAB. IART ONE (10:45)
[2021-07-30] MEDS ORDERED: VERAPAMIL 5 MG/2 ML VIAL. IART ONE (10:45)
[2021-07-30] MEDS ORDERED: IODIXANOL 320 MG/ML 100 ML VIAL. IART ONE (10:45)
[2021-07-30] MEDS ORDERED: fentaNYL PF VIAL 100 MCG/2 ML VIAL IV ONE (10:45)
[2021-07-30] MEDS ORDERED: LIDOCAINE 1% PF 2 ML VIAL. INJ ONE (10:45)
[2021-07-30] MEDS ORDERED: HEPARIN for IV BOLUS 10,000 UNIT/10 ML VIAL. IART ONE (10:45)
[2021-07-30] MEDS ORDERED: MIDAZOLAM HCL/PF 2 MG/2 ML VIAL. IV ONE (10:45)
[2021-07-30] MEDS ORDERED: ASPIRIN ENTERIC COATED 81 MG TABLET.DR. PO SCH (11:15)
[2021-07-30] MEDS: IV 1/2 NORMAL SALINE 1,000 ML IV SCH ×2 (11:15→22:54)
--- NOTE | 2021-07-30 11:21 | CARD ---
MR#: [id number] Date of Study: 07/30/2021 Ordering Physician: GHULAM MORROW, Referring Physician: GHULAM MORROW Tech: JULIANN GUDINO APPROVED REPORT Technologist: JULIANN GUDINO Nurse: Bere Cochran RN Procedure(s) performed: 1. Left heart catheterization and selective coronary angiography via right t ransradial approach 2. Successful PCI/drug-eluting stent placement to the left circumflex artery MODERATE SEDATION TIME: 53 MINS FLUORO TIME: 16.1 MIN DOSE: 91.3 GYCM2 CONTRAST: 139CC VISI INDICATION The indication(s) include : unstable angina . CS Clinical Frailty Scale [facility] Clinical Frailty Scale: Mildly Frail Heart Failure Heart Failure: Yes If Yes, Newly Diagnosed: No If Yes, HF Type: Diastolic If Yes, NYHA Class: Class II CASE TECHNIQUE IV conscious sedation was used throughout procedure with appropriate monitoring and was performed in the presence of a registered nurse who was an independent trained observer other than the physician p erforming the procedure. During this case, Fluoroscopy and low osmolar contrast were used for imaging . Specimen(s) Removed: No Estimated Blood loss: 10 cc's. PROCEDURE NARRATIVE After explaining the risks, benefits and alternative options, informed consent was obtained from cara ent. Patient was brought to the cardiac Water Resource Manager and right wrist was prepped and draped in the usual fashion after confirming a positive modified Luis Fernando's test. Arterial access was obtained in the righ t radial artery and a 6 Beninese sheath was inserted. 6 Beninese Samuel and 6 Beninese JL 3.5 catheters we re used to perform selective angiography of the right and left coronary arteries. LVEDP and transaor tic gradients were measured. The following findings were noted. FINDINGS 1. Hemodynamics: Left ventricular end-diastolic pressure of 20 mmHg. No pullback gradient across th e aortic valve. 2. Coronary angiography: a. The left main coronary artery arose from the left sinus of Valsalva, gave rise to the left anteri or descending and left circumflex arteries and did not show any significant stenosis. b. The left anterior descending artery showed patent stents in the proximal segment and 100% chronic and in-stent occlusion in the midsegment after the takeoff of a large diagonal branch. The diagonal branch showed patent stent in the proximal segment and 20% stenosis at the distal edge of the stent. c. The left circumflex artery showed a stent in the proximal to mid segment that showed 90% stenosis at the distal edge. d. The right coronary artery was a large and dominant vessel arising from the right sinus of Valsalv a that did not show any significant stenosis. INTERVENTION After initial unsuccessful attempts at engaging the left main coronary artery using 6 Beninese XB 3.5, 6 Beninese AL 0.75 guide catheters, this was successfully engaged with 5 Beninese JL 3.5 guide catheter. The stenosis in the mid segment of the left circumflex artery was crossed with a 0.014 inch [employer] jenna guidewire. This was predilated with 2.5 x 15 mm [employer] Emerge balloon followed by 2.5 x 12 mm sapphire NC plus noncompliant balloon. Following this, this was successfully treated wit h a 2.75 x 16 mm [employer] Promus Elite drug-eluting stent. Follow-up angiography showed res olution of the stenosis to 0% with RAUL-3 distal flow. Patient tolerated the procedure well. Hemost asis was achieved using TR band. No immediate complications. RAUL Flow RAUL Flow (Pre-Intervention): RAUL-2 RAUL Flow (Post-Intervention): RAUL-3 Conclusion 1. Patent previously placed stents in the proximal segment of the left anterior descending artery an d proximal segment of the diagonal branch. 100% chronic and in-stent occlusion in the mid segment of left anterior descending artery. There is 90% stenosis noted at the distal edge of the previously p laced stent in the proximal to mid segment of the left circumflex artery. 2. Successful PCI/drug-eluting stent placement to the left circumflex artery. Recommendations 1. Aspirin 325 mg daily for 1 month followed by 81 mg daily 2. Plavix 75 mg daily 3. Cardiovascular risk factor modification Signed by : Ghulam Morrow, Electronically Approved : 07/30/2021 11:21:03
[2021-07-30] MEDS: ASPIRIN ENTERIC COATED 325 MG TABLET.DR. PO SCH (11:38)
--- NOTE | 2021-07-30 13:15 | NUR ---
SW following. Discussed with RN, pt transferred to [id number]. Allison (SHARON) will continue to follow.
[2021-07-30 14:11] LABS: WEST NILE IGG CSF Negative (Negative); WEST NILE IGM CSF Negative (Negative)
[2021-07-30] MEDS: cefTRIAXone IV Push 2 GM VIAL. IVP SCH (14:21)
--- NOTE | 2021-07-30 14:52 | PDOC ---
Infectious Disease Note Subjective Subjective pt is feeling good, had cath and stenting ROS ROS no n/v/d/sob Vital Sign Vital Signs Vital Signs Date Time Temp Pulse Resp B/P (MAP) Pulse Ox O2 Delivery O2 Flow Rate FiO2 07/30/21 14:50 97 Room Air 2.0 07/30/21 14:27 77 172/133 07/30/21 12:15 97.9 97.9 07/30/21 10:48 16 Physical Exam PHYSICAL EXAM GENERAL: Alert, oriented x 3 female, lying in bed comfortably, in no acute distress, appears tired. HEENT: Normocephalic, atraumatic. Anicteric. No thrush. Oral mucosa moist. No sinus tenderness. No runny nose. No oropharyngeal exudate. NECK: Supple, no JVD, no thyromegaly. LUNGS: Clear bilaterally. No wheezing. HEART: S1, S2. No gallops or murmurs. ABDOMEN: Soft, nontender, nondistended. Bowel sounds present. GENITOURINARY: No Elliott in place. EXTREMITIES: No edema, no cyanosis. DERMATOLOGIC: Warm, dry, no generalized rash. NEUROLOGIC: Alert and oriented x 3, grossly nonfocal. PSYCHIATRIC: Calm and cooperative. Labs Lab Laboratory Tests Test 07/29/21 16:38 07/29/21 20:37 07/30/21 08:05 07/30/21 11:16 Glucose (Fingerstick) 95 mg/dL (70-99) 117 mg/dL (70-99) 190 mg/dL (70-99) 180 mg/dL (70-99) Micro Microbiology 07/25/21 CSF Gram Stain - Final, Complete Objective Assessment IMPRESSION: 1. Fever, aseptic meningitis. 2. Headache with aseptic meningitis. 3. Encephalopathy, resolved, could be metabolic component also. 4. Leukocytosis. 5. Acute kidney injury with underlying chronic kidney disease. 6. Diabetes mellitus, poorly controlled. 7. Coronary artery disease. 8. Chronic pain. Plan Plan of Care dc Leonarda continue supportive care Monitor labs PT OT VANDANA VALLE MD Jul 30, 2021 14:52
[2021-07-30] MEDS: ATORVASTATIN CALCIUM 40 MG TABLET. PO SCH (21:08)
[2021-07-30] MEDS: HYDROmorphone 2 MG TABLET PO PRN (22:39)
[2021-07-31] MEDS: HYDROmorphone 2 MG TABLET PO PRN ×2 (03:24→07:34)
[2021-07-31 03:35] VITALS: BP 189/91
[2021-07-31 03:54] VITALS: BP 142/61
[2021-07-31] MEDS: NITROGLYCERIN SUBLINGUAL 0.4 MG BOTTLE OF 25. SL PRN ×4 (04:51→09:02)
[2021-07-31 07:00] VITALS: BP 199/85
[2021-07-31] MEDS: CYANOCOBALAMIN (VITAMIN B-12) 1,000 MCG TABLET. PO SCH (07:25)
[2021-07-31] MEDS: FOLIC ACID 1 MG TABLET. PO SCH (07:25)
[2021-07-31] MEDS: DULoxetine HCL 20 MG CAPSULE.DR PO SCH (07:25)
[2021-07-31] MEDS: GABAPENTIN 300 MG CAPSULE. PO SCH (07:26)
[2021-07-31] MEDS: ASPIRIN ENTERIC COATED 325 MG TABLET.DR. PO SCH (07:26)
[2021-07-31] MEDS: METOCLOPRAMIDE 5 MG TABLET. PO SCH ×3 (07:27→16:29)
[2021-07-31] MEDS: LACTOBACILLUS RHAMNOSUS GG 1 CAPSULE. PO SCH (07:27)
[2021-07-31] MEDS: PANTOPRAZOLE IV PUSH 40 MG VIAL. IVP SCH (07:27)
[2021-07-31] MEDS: DOCUSATE SODIUM 100 MG CAPSULE. PO SCH (07:27)
[2021-07-31] MEDS: INSULIN LISPRO 300 UNITS/3 ML VIAL. SQ SCH ×6 (07:27→16:32)
[2021-07-31] MEDS: ALLOPURINOL 100 MG TABLET. PO SCH (07:27)
[2021-07-31] MEDS: CLOPIDOGREL BISULFATE 75 MG TABLET PO SCH (07:27)
[2021-07-31] MEDS: LABETALOL 20 MG/4 ML DISP.SYRIN. IVP PRN ×2 (08:11→08:13)
--- NOTE | 2021-07-31 08:52 | PDOC ---
RAKESH WEI UNION STEWARD 07/31/21 0852: CARDIO Progress Notes Date and Time Date of Service 07/31/21 Time of Evaluation 1230 Subjective Subjective: No shortness of breath, No Palpitations, No Dizziness, Other (c/o chest pain this morning) Vitals Vitals Vital Signs Date Time Temp Pulse Resp B/P (MAP) Pulse Ox O2 Delivery O2 Flow Rate FiO2 07/31/21 08:17 86 195/91 07/31/21 07:00 98.8 18 98 Room Air 98.8 07/31/21 04:12 2.0 Weight Weight [ ] Input and Output Intake and Output Intake and Output 07/31/21 07:00 Intake Total 740 ml Balance 740 ml Intake Oral 740 ml # Voids 1 Laboratory Labs Laboratory Tests Test 07/30/21 11:16 07/30/21 16:30 07/30/21 20:49 07/31/21 07:25 Glucose (Fingerstick) 180 mg/dL (70-99) 190 mg/dL (70-99) 123 mg/dL (70-99) 124 mg/dL (70-99) Microbiology Micro Microbiology 07/25/21 CSF Gram Stain - Final, Complete Physical Exam HEENT: Neck Supple W Full Motion Chest: Symmetric LUNGS: Clear to Auscultation Heart: RRR Abdomen: Soft N/T Extremities: No Edema Neurology: alert, oriented, follow commands Assessment Assessment 1. Fever: none further. being suspected for aseptic meningitis ID following. S/P LP 07/26. presently no MORAN. 2. Metabolic encephalopathy: resolved. 3. Chest pain: EKG with acute changes 4. CAD; s/p PCI/multiple stents with most recent [address] [facility]. s/p successful PCI/drug-eluting stent placement to the LCx 07/30/21 5. Hypertension: controlled 6. Hyperlipidemia 7. DM2: insulin dependent 8. Hx of gastroparesis 9. TAVARES on CKD; better 10. Hypotension: possibly from BP med and volume depletion. resolved after IVF 11. Hx of PE/DVT remote with IVC filter Recommendations Echo pending Secondary prevention including DAPT with ASA and Plavix (325mg x1 month and then 81mg thereafter). Resume Imdur Risk stratification modification Follow up in our office with Dr. Morrow as scheduled. Justicifation of Admission Dx: Justifications for Admission: Justification of Admission Dx: Yes Comments: CAD s/p PCI/stent GHULAM MORROW MD 07/31/212035: CARDIO Progress Notes Assessment Assessment Patient seen and examined. Agree with INDUSTRIAL GAS PRODUCTION OPERATOR's assessment and plan as stated above s/p PCI/MARTÍN to LCX, stable CP she is describing is very atypical Tele did not show any arrhythmias and EKG without acute changes Continue current meds and follow up as scheduled RAKESH WEI APRN Jul 31, 2021 08:52 GHULAM MORROW MD Jul 31, 2021 20:36
[2021-07-31] MEDS: INSULIN GLARGINE SYRINGE. SQ SCH (09:02)
[2021-07-31 10:48] VITALS: BP 124/61
[2021-07-31] MEDS ORDERED: HYDROmorphone 2 MG/ML INJ. IVP ONE (11:00)
[2021-07-31] MEDS ORDERED: ASPI325T8 PO (11:29)
[2021-07-31] MEDS ORDERED: INSU100V6 SQ (11:29)
[2021-07-31] MEDS ORDERED: INSU100I13 SQ (11:29)
--- NOTE | 2021-07-31 11:50 | CARD ---
MR#: [id number] Date of Study: 07/30/2021 Ordering Physician: LEONARDA MG, Referring Physician: LEONARDA MG Tech: Raymon Haq [facility] APPROVED REPORT EXAM: Two-dimensional and M-mode echocardiogram with Doppler and color Doppler. Other Information Quality : AverageHR: 71bpm Rhythm : NSRTechnically limited study due to body habitus. INDICATION Cardiac Disease: CAD RISK FACTORS Hypertension Obesity Diabetes 2D DIMENSIONS Left Atrium(2D)4.1 (1.6-4.0cm)IVSd1.3 (0.7-1.1cm) Aortic Root(2D)2.8 (2.0-3.7cm)LVDd3.8 (3.9-5.9cm) LVOT Diameter1.8 (1.8-2.4cm)PWd1.2 (0.7-1.1cm) LA Xaryhf04 (18-58mL)LVDs2.3 (2.5-4.0cm) FS (%) 39.0 %SV43.0 ml LVEF(%)70.1 (>50%) Aortic Valve AoV Peak Nikhil.162.6cm/sAoV VTI31.8cm AO Peak GR.10.6mmHgLVOT Peak Nikhil.94.1cm/s LVOT VTI 21.01cmAO Mean GR.6mmHg KARY (VMAX)1.89hh8KAN (VTI)1.74cm2 Mitral Valve MV E Gawudwyo163.4cm/sMV DECEL CDDD500bi MV A Tltybsbw49.5cm/sMV IKH49ix E/A Ratio1.3MVA (PHT)3.72cm2 TDI E/Lateral E'20.8E/Medial E'23.2 Pulmonary Valve PV Peak Lrjwatyj96.1cm/sPV Peak Grad.4mmHg Tricuspid Valve TR P. Dwnybhwd419ol/sTR Peak Gr.18mmHg Pulmonary Vein S1 Bkrwhapc64.8cm/sD2 Fdboiahb66.8cm/s LEFT VENTRICLE The left ventricle is normal size. There is borderline to mild concentric left ventricular hypertroph y. The left ventricular systolic function is normal and the ejection fraction is within normal range. EF 55% Septal motion suggestive of prior infarct. Otherwise, grossly normal wall motion. Tissue Dopp ler imaging reveals mild left ventricular diastolic dysfunction. No left ventricle thrombus noted on this study. There is no ventricular septal defect visualized. There is no left ventricular aneurysm. There is no mass noted in the left ventricle. RIGHT VENTRICLE The right ventricle is normal size. There is normal right ventricular wall thickness. The right ventr icular systolic function is normal. ATRIA The left atrium size is normal. The right atrium size is normal. The interatrial septum is intact wit h no evidence for an atrial septal defect or patent foramen ovale as noted on 2-D or Doppler imaging. AORTIC VALVE The aortic valve is normal in structure and function. Doppler and Color Flow revealed no significant aortic regurgitation. There is no significant aortic valvular stenosis. There is no aortic valvular v egetation. MITRAL VALVE The mitral valve is thickened but opens well. Mitral annular calcification is mild. There is no evide nce of mitral valve prolapse. There is no mitral valve stenosis. Doppler and Color-flow revealed mild mitral regurgitation. TRICUSPID VALVE The tricuspid valve is normal in structure and function. Doppler and Color Flow revealed trace tricus pid regurgitation. There is no tricuspid valve prolapse or vegetation. There is no tricuspid valve st enosis. PULMONIC VALVE The pulmonic valve is not well seen. Doppler and Color Flow revealed no pulmonic valvular regurgitati on. There is no pulmonic valvular stenosis. GREAT VESSELS The aortic root is normal in size. The ascending aorta is normal in size. The pulmonary artery is nor mal. The IVC is normal in size and collapses >50% with inspiration. PERICARDIAL EFFUSION There is no pleural effusion. There is no evidence of significant pericardial effusion. Critical Notification Critical Value: No <Conclusion> The left ventricular systolic function is normal and the ejection fraction is within normal range. EF 55% Septal motion suggestive of prior infarct. Otherwise, grossly normal wall motion. Signed by : Leeroy Cobian, Electronically Approved : 07/31/2021 11:49:39
--- NOTE | 2021-07-31 12:10 | NUR ---
SS following up with discharge planning. SS reviewed pt chart and discussed with pt RN. Pt is from home with family and is currently on room air. ID and Cardiology following. Pt had heart cath on 07/30/2021. Discharge order on the chart for home with self care.
--- NOTE | 2021-07-31 12:18 | EKG ---
[facility] [address] [place] [address] Test Date: 2021-07-31 Test Time: 12:13:30 Pat Name: ISABELL BARRON Department: Room: [facility] Gender: F Minister: VAHID : 1955 Requested By: SIRI SAHA Order Number: [id number] Reading MD: Guy Morrow Measurements Intervals [place] Rate: 77 P: 0 CT: 184 QRS: 10 QRSD: 68 T: 107 QT: 376 QTc: 427 Interpretive Statements SINUS RHYTHM QRS(T) CONTOUR ABNORMALITY CONSISTENT WITH ANTEROSEPTAL INFARCT PROBABLY OLD T ABNORMALITY IN HIGH LATERAL LEADS ABNORMAL ECG Electronically Signed On 08-03-2021 13:42:12 CDT by Guy Morrow
[2021-07-31] MEDS ORDERED: ISOSORBIDE MONONITRATE ER 30 MG TAB.ER.24H PO SCH (13:00)
--- NOTE | 2021-07-31 14:11 | PDOC ---
Infectious Disease Note Subjective: Subjective pt is feeling good, Denies any complaints Vital Signs: Vital Signs Vital Signs Date Time Temp Pulse Resp B/P (MAP) Pulse Ox O2 Delivery O2 Flow Rate FiO2 07/31/21 13:04 78 124/61 07/31/21 11:37 98 Room Air 2.0 07/31/21 10:48 98.7 18 98.7 Physical Exam: PHYSICAL EXAM GENERAL: Alert, oriented x 3 female, lying in bed comfortably, in no acute distress, appears tired. HEENT: Normocephalic, atraumatic. Anicteric. No thrush. Oral mucosa moist. No sinus tenderness. No runny nose. No oropharyngeal exudate. NECK: Supple, no JVD, no thyromegaly. LUNGS: Clear bilaterally. No wheezing. HEART: S1, S2. No gallops or murmurs. ABDOMEN: Soft, nontender, nondistended. Bowel sounds present. GENITOURINARY: No Elliott in place. EXTREMITIES: No edema, no cyanosis. DERMATOLOGIC: Warm, dry, no generalized rash. NEUROLOGIC: Alert and oriented x 3, grossly nonfocal. PSYCHIATRIC: Calm and cooperative. Medications: Inpatient Meds: Medications reviewed. Labs: Lab Laboratory Tests Test 07/30/21 16:30 07/30/21 20:49 07/31/21 07:25 07/31/21 10:38 Glucose (Fingerstick) 190 mg/dL (70-99) 123 mg/dL (70-99) 124 mg/dL (70-99) 91 mg/dL (70-99) Objective: Assessment: 1. Fever, aseptic meningitis likely viral , cult negative, hsv negative in csf. Improved 2. Headache with aseptic meningitis.Improved,csf cult neg, strep pneu neg 3. Encephalopathy, resolved, could be metabolic component ,improved 4. Leukocytosis.had steroids 5. Acute kidney injury with underlying chronic kidney disease. 6. Diabetes mellitus, poorly controlled. 7. Coronary artery disease. 8. Chronic pain. Plan: Plan of Care Monitor off antibiotics Continue supportive care Monitor labs PT OT JESS VALLE MD Jul 31, 2021 14:11
[2021-07-31 15:00] VITALS: BP 141/65
--- NOTE | 2021-07-31 18:55 | NUR ---
Discharge Note: ALEXANDRA BARRON [facility] Discharge instructions and discharge home medications reviewed with Patient and a copy given. All questions have been answered and understanding verbalized. The following instructions and handouts were given: Follow up and care after heart cath and stent placement Discontinued lines and drains: PIV, midline, and heart monitor removed from pt Patient discharged to home alone
[2021-08-01] MEDS ORDERED: PANTOPRAZOLE 40 MG TABLET.DR. PO SCH (07:30)
[2021-08-01] MEDS ORDERED: ISOSORBIDE MONONITRATE ER 30 MG TAB.ER.24H PO SCH (09:00)
== END 2021-07-31 17:15 | disposition home or self-care (01) | DRG 981 ==
LOC: 1 WEST ICU 15:20 → 5 NORTH 07-27 11:20 → 6 SOUTH 07-30 09:58
PROVIDERS: ADMIT Internal Medicine; ATTEND Internal Medicine
PROC: 009U3ZX Drainage of Spinal Canal, Percutaneous Approach, Diagnostic (ICD-10-PCS; 2021-07-25)
PROC: B01B1ZZ Fluoroscopy of Spinal Cord using Low Osmolar Contrast (ICD-10-PCS; 2021-07-25)
PROC: 5A09357 Assistance with Respiratory Ventilation, Less than 24 Consecutive Hours, Continuous Positive Airway Pressure (ICD-10-PCS; 2021-07-26)
PROC: 5A09357 Assistance with Respiratory Ventilation, Less than 24 Consecutive Hours, Continuous Positive Airway Pressure (ICD-10-PCS; 2021-07-28)
PROC: 5A09357 Assistance with Respiratory Ventilation, Less than 24 Consecutive Hours, Continuous Positive Airway Pressure (ICD-10-PCS; 2021-07-29)
PROC: 027034Z Dilation of Coronary Artery, One Artery with Drug-eluting Intraluminal Device, Percutaneous Approach (ICD-10-PCS; principal; 2021-07-30)
PROC: 4A023N7 Measurement of Cardiac Sampling and Pressure, Left Heart, Percutaneous Approach (ICD-10-PCS; 2021-07-30)
PROC: B211YZZ Fluoroscopy of Multiple Coronary Arteries using Other Contrast (ICD-10-PCS; 2021-07-30)
PROC: 5A09357 Assistance with Respiratory Ventilation, Less than 24 Consecutive Hours, Continuous Positive Airway Pressure (ICD-10-PCS; 2021-07-30)
DX: G03.0 Nonpyogenic meningitis (principal); G93.41 Metabolic encephalopathy; N17.9 Acute kidney failure, unspecified; N18.4 Chronic kidney disease, stage 4 (severe); T82.855A Stenosis of coronary artery stent, initial encounter; E03.9 Hypothyroidism, unspecified; E11.22 Type 2 diabetes mellitus with diabetic chronic kidney disease; E11.43 Type 2 diabetes mellitus with diabetic autonomic (poly)neuropathy; E11.65 Type 2 diabetes mellitus with hyperglycemia; E78.5 Hyperlipidemia, unspecified; F17.200 Nicotine dependence, unspecified, uncomplicated; G89.29 Other chronic pain; I25.10 Atherosclerotic heart disease of native coronary artery without angina pectoris; I50.9 Heart failure, unspecified; K31.84 Gastroparesis; F32.A Depression, unspecified; G47.33 Obstructive sleep apnea (adult) (pediatric); K21.9 Gastro-esophageal reflux disease without esophagitis; I95.9 Hypotension, unspecified; Y83.8 Other surgical procedures as the cause of abnormal reaction of the patient, or of later complication, without mention of misadventure at the time of the procedure; Z79.02 Long term (current) use of antithrombotics/antiplatelets; Z79.4 Long term (current) use of insulin; I25.2 Old myocardial infarction; Z79.82 Long term (current) use of aspirin; Z82.49 Family history of ischemic heart disease and other diseases of the circulatory system; Z86.711 Personal history of pulmonary embolism; Z86.718 Personal history of other venous thrombosis and embolism; Z95.5 Presence of coronary angioplasty implant and graft; Z95.828 Presence of other vascular implants and grafts; Y92.89 Other specified places as the place of occurrence of the external cause; Z90.49 Acquired absence of other specified parts of digestive tract; Z88.5 Allergy status to narcotic agent; Z88.8 Allergy status to other drugs, medicaments and biological substances
CPT/HCPCS: 36415; 62270; 71045; 80048; 80053; 80061; 82945; 82962; 84157; 84443; 84484; 85025; 86788; 86789; 87075; 87496; 87899; 89051; 92928; 93005; 93306; 93458; 99152; 99153; C1894; C9113; J0133; J0583; J0696; J0878; J1100; J1170; J1644; J1815; J2250; J3010; J3480; J3490; J7030; J7060; Q9967; 97110-GP; 97116-GP; C1725; C1874; C8929; G0378

== ENCOUNTER 2021-08-13 00:01 | Inpatient (IN) | payer BC, MEDICARE ==
--- NOTE | 2021-08-12 23:25 | NUR ---
ADMISSION NOTE Pt transferred from [facility] ER via EMS to room 675. awake overnight monitor applied. Pt is drowsy/lethargic with spastic tremors to arms and legs. Pt follows only some commands. Able to state, in a whisper, her name, birthday, year and that she was at [facility]. Pt only answers some questions when asked, then falls back asleep. Unable to complete all admission information, only partial completion. PMH taken from last admission. Pt did state she lives with her daughter, but was unable to provide any further information regarding why she came to the hospital, if she feels safe, etc. Pt was incontinent on EMS transfer. Pt cleaned up and brief applied. Pt had no IV access upon transfer. Wenceslao MORENOtranscribing operators supervisor able to get IV access placed. Bed alarm on. Will monitor.
[2021-08-12 23:30] VITALS: BP 187/91
[~2021-08-13] VITALS: Ht 152.4 cm; Wt 82.8 kg
[~2021-08-13 00:01] MED LIST: ALLO100T PO; ASPI325T8 PO; ASPI81TA59 PO; ATOR40TA59 PO; CARV25TA2 PO; CLOP75TA PO; CYAN500T40 SL; DOCU-109 PO; DULO20CA PO; FENT1PAT15 TP; FOLI0.4T5 PO; GABA600T7 PO; HYDR-2867 PO; INSU100I13 SQ; INSU100V6 SQ; ISOS30TA68 PO
[2021-08-13] MEDS ORDERED: C.DIFF MED SCREEN BY RX. MC ONE (01:45)
[2021-08-13] MEDS ORDERED: ONDANSETRON PF 4 MG/2 ML VIAL. IVP PRN (01:45)
[2021-08-13 02:40] VITALS: BP 142/71
[2021-08-13 04:39] LABS: BASO % 0 % (0-3); EOS # 0.4 x10^3/uL (0.0-0.7); EOS % 4 % (0-3); HEMATOCRIT 33.3 % (36.0-47.0); HEMOGLOBIN 10.9 g/dL (12.0-15.5); LYMPH % 10 % (24-48); MEAN CORPUSCULAR HEMOGLOBIN 30 pg (25-35); MEAN CORPUSCULAR HGB CONC 33 g/dL (31-37); MEAN CORPUSCULAR VOLUME 92 fL (79-100); MONO # 0.5 x10^3/uL (0.0-1.1); MONO % 5 % (0-9); NEUT # 8.4 x10^3/uL (1.8-7.7); NEUT % 81 % (31-73); PLATELET COUNT 255 x10^3/uL (140-400); RED BLOOD COUNT 3.64 x10^6/uL (3.50-5.40); RED CELL DISTRIBUTION WIDTH 15.4 % (11.5-14.5); WHITE BLOOD COUNT 10.3 x10^3/uL (4.0-11.0)
[2021-08-13 05:27] LABS: ALBUMIN 2.7 g/dL (3.4-5.0); ALBUMIN/GLOBULIN RATIO 0.8 (1.0-1.7); CALCIUM 8.7 mg/dL (8.5-10.1); CREATININE 1.8 mg/dL (0.6-1.0); GFR 28.3; POTASSIUM 4.2 mmol/L (3.5-5.1); TOTAL BILIRUBIN 0.2 mg/dL (0.2-1.0); TOTAL PROTEIN 6.3 g/dL (6.4-8.2)
[2021-08-13 07:00] VITALS: BP 132/59
[2021-08-13] MEDS ORDERED: fentaNYL 25MCG/HR PATCH 1 PATCH PATCH.TD72 TD SCH (09:00)
[2021-08-13] MEDS ORDERED: ACETAMINOPHEN 650 MG SUPP.RECT. PR PRN (09:15)
[2021-08-13] MEDS: IV NORMAL SALINE 1000ML BAG 1,000 ML IV SCH ×2 (09:32→19:15)
[2021-08-13] MEDS: ACETAMINOPHEN 325 MG TABLET. PO PRN ×2 (09:33→23:58)
[2021-08-13 10:31] VITALS: BP 138/63
--- NOTE | 2021-08-13 11:57 | PDOC2 ---
NEUROLOGY CONSULT Date of Service DOS: DATE: 08/13/21 TIME: 11:56 History of Present Illness History of Present Illness The patient is a 65-year-old right-handed female who presented to [facility] emergency department last night with nausea and vomiting. She also complains of ataxia and difficulty finding her words. She has had longstanding diabetic gastroparesis. She was here earlier this month with aseptic meningitis (CSF 07/25, WBC 119, RBC 24, glucose 96, protein 60.1). She has been using a cane or a walker for the last several months. She recently moved here from [place]. She has been staying with one of her children. There is no prior history of stroke, seizure, or head injury Past Medical History Cardiovascular: CAD, HTN, [place], Hyperlipidemia, Other (Deep vein thrombosis) Pulmonary: Other (Sleep apnea) CENTRAL NERVOUS SYSTEM: Periperal neuropathy GI: Diverticulosis, GERD, Other (Gastroparesis) Psych: Anxiety, Depression Rheumatologic: Gout Infectious disease: Other (Aseptic meningitis 07/2021) Renal/: Chronic renal insuff Endocrine: Diabetes, Hypothyroidism Past Surgical History Past Surgical History: Cholecystectomy, , Other (Coronary stent) Family History Family History: CAD Social History Social History , no alcohol or tobacco Current Medications Current Medications Current Medications Fentanyl (Duragesic 25mcg/ Hr Patch) 1 patch Q3DAYS TD ; Start 08/13/21 at 09:00 Pharmacy Consult (C.diff Med Screen By Rx) 1 each 1X ONCE [facility] ; Start 08/13/21 at 01:45; Stop 08/13/21 at 01:46; Status DC Ondansetron HCl (Zofran) 4 mg PRN Q6HRS PRN IVP NAUSEA/VOMITING 1ST CHOICE; Start 08/13/21 at 01:45 Sodium Chloride 1,000 ml @ 100 mls/hr Q10H IV Last administered on 08/13/21at 09:32; Start 08/13/21 at 09:15 Acetaminophen (Tylenol Supp) 650 mg PRN Q4HRS PRN [place] MILD PAIN / TEMP > 100.3'F; Start 08/13/21 at 09:15 Acetaminophen (Tylenol) 650 mg PRN Q4HRS PRN PO MILD PAIN / TEMP > 100.3'F Last administered on 08/13/21at 09:33; Start 08/13/21 at 09:15 Active Scripts Active Humalog (Insulin Lispro) 100 Unit/1 Ml Vial 15 Unit SQ TIDBFRMEAL 30 Days Lantus Solostar (Insulin Glargine,Hum.rec.anlog) 100 Unit/1 Ml Insuln.pen 30 Unit SQ QHS 30 Days Aspirin 325 Mg Tablet 1 Tab PO DAILY 30 Days Reported Isosorbide Mononitrate Er (Isosorbide Mononitrate) 30 Mg Tab.er.24h 1 Tab PO DAILY Hydralazine Hcl 10 Mg Tablet 1 Tab PO BID Gabapentin 600 Mg Tablet 600 Mg PO BID Carvedilol 25 Mg Tablet 12.5 Mg PO BIDWMEALS Atorvastatin Calcium 40 Mg Tablet 80 Mg PO HS Allopurinol 100 Mg Tablet 1 Tab PO DAILY Folic Acid 0.4 Mg Tablet 0.4 Mg PO DAILY FENTANYL 25mcg/hr (Fentanyl) 1 Each Patch.td72 1 Patch TP Q3DAYS Cymbalta (Duloxetine Hcl) 20 Mg Capsule.dr 1 Cap PO DAILY Colace (Docusate Sodium) 100 Mg Capsule 1 Cap PO BID 30 Days Vitamin B-12 (Cyanocobalamin (Vitamin B-12)) 500 Mcg Tab.subl 500 Mcg SL DAILY Clopidogrel (Clopidogrel Bisulfate) 75 Mg Tablet 1 Tab PO DAILY Allergies Allergies: Coded Allergies: morphine (Verified Allergy, Intermediate, 07/25/21) oxycodone (Verified Allergy, Intermediate, 07/25/21) pregabalin (Verified Allergy, Intermediate, 07/25/21) ROS Review of System Negative for fever, chills, weight loss, shortness of breath, chest pain, indigestion, hematochezia, melena, and dysuria. Full 14-point review of systems is negative. Physical Exam Physical Examination General: Well-developed, well-nourished white female in no acute distress HEENT: Normocephalic andatraumatic.emporal arteriespulsatile and nontender. Neck: Supple without bruit, no meningismus Musculoskeletal: Stability:see neurologic. Gait exam:see neurologic. Tone:see neurologic.Strength:see neurologic. Neurological: Mental Status:intact, orientation, memory, attention span/concentration, language, fund of knowledge normal. Cranial Nerves:Pupils equal and reactive to light, extraocular movements areintact, visual ornelas are full to confrontation. Facial sensation is normal. There is no facial asymmetry. Vestibulo-ocular reflex is intact. Palate elevates and tongue protrudes in midline. All other cranial related problems are negative except as mentioned before.Reflexes:0-1+ and symmetric with flexor plantar responses. Motor:4/5 strength with normal tone and bulk. Coordination:Finger-nose finger and ojit-po-cspe testing are normal. Rapid alternating movements and fine finger movements are intact. Gait:Normal, including tandem. Sensory:stocking loss Vitals VITALS Vital Signs Date Time Temp Pulse Resp B/P (MAP) Pulse Ox O2 Delivery O2 Flow Rate FiO2 08/13/21 10:31 101.4 103 19 138/63 (88) 91 Room Air 101.4 Labs Labs Laboratory Tests Test 08/13/21 04:05 08/13/21 05:54 08/13/21 08:23 08/13/21 11:28 White Blood Count 10.3 x10^3/uL (4.0-11.0) Red Blood Count 3.64 x10^6/uL (3.50-5.40) Hemoglobin 10.9 g/dL (12.0-15.5) Hematocrit 33.3 % (36.0-47.0) Mean Corpuscular Volume 92 fL (79-100) Mean Corpuscular Hemoglobin 30 pg (25-35) Mean Corpuscular Hemoglobin Concent 33 g/dL (31-37) Red Cell Distribution Width 15.4 % (11.5-14.5) Platelet Count 255 x10^3/uL (140-400) Neutrophils (%) (Auto) 81 % (31-73) Lymphocytes (%) (Auto) 10 % (24-48) Monocytes (%) (Auto) 5 % (0-9) Eosinophils (%) (Auto) 4 % (0-3) Basophils (%) (Auto) 0 % (0-3) Neutrophils # (Auto) 8.4 x10^3/uL (1.8-7.7) Lymphocytes # (Auto) 1.0 x10^3/uL (1.0-4.8) Monocytes # (Auto) 0.5 x10^3/uL (0.0-1.1) Eosinophils # (Auto) 0.4 x10^3/uL (0.0-0.7) Basophils # (Auto) 0.0 x10^3/uL (0.0-0.2) Sodium Level 135 mmol/L (136-145) Potassium Level 4.2 mmol/L (3.5-5.1) Chloride Level 98 mmol/L (98-107) Carbon Dioxide Level 31 mmol/L (21-32) Anion Gap 6 (6-14) Blood Urea Nitrogen 30 mg/dL (7-20) Creatinine 1.8 mg/dL (0.6-1.0) Estimated GFR (Cockcroft-Gault) 28.3 BUN/Creatinine Ratio 17 (6-20) Glucose Level 57 mg/dL (70-99) Calcium Level 8.7 mg/dL (8.5-10.1) Total Bilirubin 0.2 mg/dL (0.2-1.0) Aspartate Amino Transf (AST/SGOT) 19 U/L (15-37) Alanine Aminotransferase (ALT/SGPT) 29 U/L (14-59) Alkaline Phosphatase 88 U/L (46-116) Total Protein 6.3 g/dL (6.4-8.2) Albumin 2.7 g/dL (3.4-5.0) Albumin/Globulin Ratio 0.8 (1.0-1.7) Glucose (Fingerstick) 70 mg/dL (70-99) 70 mg/dL (70-99) 60 mg/dL (70-99) Laboratory Tests Test 08/13/21 04:05 08/13/21 05:54 08/13/21 08:23 08/13/21 11:28 White Blood Count 10.3 x10^3/uL (4.0-11.0) Red Blood Count 3.64 x10^6/uL (3.50-5.40) Hemoglobin 10.9 g/dL (12.0-15.5) Hematocrit 33.3 % (36.0-47.0) Mean Corpuscular Volume 92 fL (79-100) Mean Corpuscular Hemoglobin 30 pg (25-35) Mean Corpuscular Hemoglobin Concent 33 g/dL (31-37) Red Cell Distribution Width 15.4 % (11.5-14.5) Platelet Count 255 x10^3/uL (140-400) Neutrophils (%) (Auto) 81 % (31-73) Lymphocytes (%) (Auto) 10 % (24-48) Monocytes (%) (Auto) 5 % (0-9) Eosinophils (%) (Auto) 4 % (0-3) Basophils (%) (Auto) 0 % (0-3) Neutrophils # (Auto) 8.4 x10^3/uL (1.8-7.7) Lymphocytes # (Auto) 1.0 x10^3/uL (1.0-4.8) Monocytes # (Auto) 0.5 x10^3/uL (0.0-1.1) Eosinophils # (Auto) 0.4 x10^3/uL (0.0-0.7) Basophils # (Auto) 0.0 x10^3/uL (0.0-0.2) Sodium Level 135 mmol/L (136-145) Potassium Level 4.2 mmol/L (3.5-5.1) Chloride Level 98 mmol/L (98-107) Carbon Dioxide Level 31 mmol/L (21-32) Anion Gap 6 (6-14) Blood Urea Nitrogen 30 mg/dL (7-20) Creatinine 1.8 mg/dL (0.6-1.0) Estimated GFR (Cockcroft-Gault) 28.3 BUN/Creatinine Ratio 17 (6-20) Glucose Level 57 mg/dL (70-99) Calcium Level 8.7 mg/dL (8.5-10.1) Total Bilirubin 0.2 mg/dL (0.2-1.0) Aspartate Amino Transf (AST/SGOT) 19 U/L (15-37) Alanine Aminotransferase (ALT/SGPT) 29 U/L (14-59) Alkaline Phosphatase 88 U/L (46-116) Total Protein 6.3 g/dL (6.4-8.2) Albumin 2.7 g/dL (3.4-5.0) Albumin/Globulin Ratio 0.8 (1.0-1.7) Glucose (Fingerstick) 70 mg/dL (70-99) 70 mg/dL (70-99) 60 mg/dL (70-99) Images Images CT HEAD/BRAIN , 08/12/2021 6:45 PM Indication: Reason: weakness / Spl. Instructions: / History: . TECHNIQUE: Head CT was performed without intravenous contrast. One or more of the following dose reduction techniques were utilized: *Automated exposure control (AEC) *Adjustment of mA and/or kV according to patient size *Use of iterative reconstruction technique *CT scan done according to ALARA, or ALARA/IMAGE GENTLY COMPARISON: July 24, 2021 FINDINGS: The ventricles and sulci are prominent consistent with cerebral volume loss. Patchy ill-defined low attenuation areas in the subcortical and periventricular white matter bilaterally are consistent with microvascular disease. There is no evidence of acute intracranial hemorrhage, extra-axial collection, mass effect, midline shift, or acute territorial infarct. No lesion of the skull base or the calvarium is seen. The visualized paranasal sinuses, mastoid air cells and orbits are normal in appearance. IMPRESSION: No evidence for acute intracranial abnormality. Volume loss and microvascular disease. Assessment/Plan Assessment/Plan Impression: Gait disorder, I did not check her gait, but she does have evidence of severe peripheral neuropathy that would contribute. Diabetes the most likely cause Nausea, vomiting, patient has known gastroparesis. Recent meningitis. Recommendations: Rehabilitation modalities MRI of the brain Laboratory studies for other causes of neuropathy. Discussed with Dr. Alvarez Thank you for let me help with the patient's care YODIT STREETER MD Aug 13, 2021 11:57
--- NOTE | 2021-08-13 12:00 | NUR ---
Multiple attempts for IV unsuccessful. Per Dr. Antonio bergman to leave out if patient is drinking and eating adequately.
--- NOTE | 2021-08-13 13:40 | NUR ---
SS following for discharge planning. SS reviewed pt chart and discussed with pt RN. Pt is from home and is currently on room air. Neurology consulted. Brain MRI ordered. PT/OT ordered. SS will continue to follow for discharge planning.
[2021-08-13 15:00] VITALS: BP 151/70
--- NOTE | 2021-08-13 15:59 | HP ---
DATE OF SERVICE: 08/13/2021 ADMIT DATE: 08/13/2021 HISTORY OF PRESENT ILLNESS: The patient is a 65-year-old female patient who presented to the Emergency Room of [facility] complaining of nausea, vomiting and diarrhea. She states that she feels like her balance has been off and she is having trouble finding her words. She also felt very weak. The patient states that she was actually discharged from [facility] recently, where was diagnosed with septic meningitis and had also chest pain that culminated in left heart catheterization and stent deployment. She denied any chest pain at this time. Denied any shortness of breath. Denied any fevers. She was extensively investigated in the Emergency Room and has had lab work and imaging studies. Her lab work showed that her white cell count was only 8200 with a normochromic normocytic anemia, normal platelets. Her chemistry was essentially unremarkable except for slightly impaired kidney function, creatinine of 1.6. Her urinalysis was unrevealing and her toxicology screen was negative. Did have a CT scan of the head, which showed the ventricles and sulci are prominent consistent with cerebral volume loss, patchy ill-defined low attenuation areas in the subcortical and periventricular white matter bilaterally are consistent with microvascular disease. There is no evidence of acute intracranial hemorrhage, extra axial fluid collection, mass effect, midline shift or acute territorial infarct. No lesion of the skull base or the calvarium is seen. The visualized paranasal sinuses, mastoid air cells and orbits are normal in appearance. Her chest x-ray showed no acute radiographic abnormality of the chest, no significant change from 07/24/2021. The patient was transferred to [facility] because of the aphasia and ataxia, generalized weakness, nausea and vomiting and diarrhea. She was given diphenhydramine as well as metoclopramide and was transferred to [facility] to consult the neurologist. PAST MEDICAL HISTORY: Significant for coronary artery disease, hyperlipidemia, hypertension, myocardial infarction, chronic kidney disease. She also has diabetic gastroparesis and stage IV kidney disease. PAST SURGICAL HISTORY: Significant for cholecystectomy, and drainage of pericardial abscess. She also had a PCI with stent deployment. FAMILY HISTORY: Unobtainable. SOCIAL HISTORY: She apparently used to live in [place] with one of her sons and she moved here to live with her daughter. She continues to smoke. Does not drink alcohol. Recreational drugs, she continues to smoke marijuana, although the last time she used any marijuana was in April of this year. She was on Dilaudid in a liquid form according to her and a fentanyl patch, but according to her daughter, she has not had any of these for the last 3 weeks. REVIEW OF SYSTEMS: As per history of present illness. PHYSICAL EXAMINATION: GENERAL: On arrival to the Emergency Room the patient was pale, not jaundice or cyanosis. No lymphadenopathy, no thyromegaly, no jugular venous distention. No limb edema. VITAL SIGNS: Her heart rate was 94, blood pressure was 107/68, temperature 98.8, respiratory rate was 18 and oxygen saturation was 96%. HEAD, EYES, EARS, NOSE, AND THROAT: Normocephalic, atraumatic. NECK: Supple. HEART: Showed normal first and second heart sounds. No gallop or murmur. CHEST: Clear to auscultation, no crepitation or rhonchi. ABDOMEN: Distended, soft, nontender. NEUROLOGIC: She was alert, oriented x 3 with normal motor and sensory function. Her affect, judgment and mood were normal. LABORATORY DATA: She has had lab work done, which showed a white cell count of 8.2, hemoglobin 11, hematocrit 33, MCV 93 and platelet count 254,000 with normal manual differential. Her chemistry showed a serum sodium 134, potassium 4.7, chloride 98, bicarbonate 32, anion gap of 4, BUN 28, creatinine 1.6. Estimated GFR was 32 mL per minute. Her glucose 143, calcium was 8.8. Total bilirubin, AST, ALT, alkaline phosphatase were normal. Total protein was 5.8, albumin was 2.9 and lipase was 28. Urinalysis was unremarkable and toxic screen was negative. ASSESSMENT AND PLAN: The patient was transferred to [facility] with ataxia, generalized weakness, nausea and vomiting. He has consulted Dr. Serrano. We will reconcile all her medications. MICAELA/WU DR: RUBY/halima TID: [id number]
--- NOTE | 2021-08-13 18:00 | NUR ---
Pt has not voided. Bladder scan show greater than 475mL. Paged Dr. Alvarez pt unable to void on BSC. Received orders for straight cath prn. Straight cath completed 600mL of urine out.
[2021-08-13] MEDS: CARVEDILOL 12.5 MG TABLET. PO SCH (18:05)
[2021-08-13] MEDS: INSULIN LISPRO 300 UNITS/3 ML VIAL. SQ SCH (18:10)
--- NOTE | 2021-08-13 18:30 | NUR ---
Fentanyl patch non-administered. Pt refused stating it makes her violent.
[2021-08-13 18:40] LABS: HYALINE CASTS, URINE MODERATE /HPF
[2021-08-13 18:45] LABS: BARBITURATES NEG (NEG); BENZODIAZEPINES NEG (NEG); CANNABINOIDS NEG (NEG); COCAINE NEG (NEG); METHADONE NEG (NEG); OPIATES POS (NEG); PHENCYCLIDINE NEG (NEG)
[2021-08-13 18:47] LABS: BACTERIA,URINE 0 /HPF (0-FEW); RBC,URINE 0 /HPF (0-2); WBC,URINE 0 /HPF (0-4)
[2021-08-13 19:00] LABS: AMPHETAMINE/METHAMPHETAMINE NEG (NEG)
[2021-08-13 19:02] VITALS: BP 158/65
[2021-08-13] MEDS: hydrALAZINE 10 MG TABLET PO SCH (20:56)
[2021-08-13] MEDS: ATORVASTATIN CALCIUM 40 MG TABLET. PO SCH (20:56)
[2021-08-13] MEDS: GABAPENTIN 300 MG CAPSULE. PO SCH (20:56)
[2021-08-13] MEDS: DOCUSATE SODIUM 100 MG CAPSULE. PO SCH (20:56)
[2021-08-13] MEDS: INSULIN GLARGINE SYRINGE. SQ SCH (21:03)
[2021-08-13 23:30] VITALS: BP 141/64
[2021-08-14 00:07] LABS: HEMOGLOBIN A1C 12.7 % (4.8-5.6)
--- NOTE | 2021-08-14 01:02 | NUR ---
Pt claimed she did not feel like she needs to void. Bladder scanned: >281 cc.
[2021-08-14 02:55] VITALS: BP 158/73
--- NOTE | 2021-08-14 03:43 | NUR ---
Bladder scanned: 425cc. Claimed didn't feel like voiding.
[2021-08-14] MEDS: IV NORMAL SALINE 1000ML BAG 1,000 ML IV SCH ×2 (05:15→19:00)
--- NOTE | 2021-08-14 05:51 | NUR ---
Bladder scanned @ 0545: 575cc. Straight cathed: 600cc out.
[2021-08-14 06:21] LABS: HEMATOCRIT 31.8 % (36.0-47.0); HEMOGLOBIN 10.4 g/dL (12.0-15.5); RED BLOOD COUNT 3.46 x10^6/uL (3.50-5.40); RED CELL DISTRIBUTION WIDTH 14.9 % (11.5-14.5)
[2021-08-14 06:44] LABS: ALBUMIN 2.3 g/dL (3.4-5.0); ALBUMIN/GLOBULIN RATIO 0.6 (1.0-1.7); CALCIUM 8.7 mg/dL (8.5-10.1); CREATININE 1.5 mg/dL (0.6-1.0); POTASSIUM 4.3 mmol/L (3.5-5.1); TOTAL BILIRUBIN 0.2 mg/dL (0.2-1.0); TOTAL PROTEIN 5.9 g/dL (6.4-8.2)
[2021-08-14 07:00] VITALS: BP 163/77
[2021-08-14] MEDS: INSULIN LISPRO 300 UNITS/3 ML VIAL. SQ SCH ×3 (07:30→17:28)
[2021-08-14] MEDS: GABAPENTIN 300 MG CAPSULE. PO SCH ×2 (08:57→22:39)
[2021-08-14] MEDS: CLOPIDOGREL BISULFATE 75 MG TABLET PO SCH (08:57)
[2021-08-14] MEDS: ISOSORBIDE MONONITRATE ER 30 MG TAB.ER.24H PO SCH (08:57)
[2021-08-14] MEDS: DULoxetine HCL 20 MG CAPSULE.DR PO SCH (08:57)
[2021-08-14] MEDS: ALLOPURINOL 100 MG TABLET. PO SCH (08:57)
[2021-08-14] MEDS: FOLIC ACID 1 MG TABLET. PO SCH (08:58)
[2021-08-14] MEDS: DOCUSATE SODIUM 100 MG CAPSULE. PO SCH ×2 (08:58→22:38)
[2021-08-14] MEDS: hydrALAZINE 10 MG TABLET PO SCH ×2 (08:58→22:38)
[2021-08-14] MEDS: ASPIRIN 325 MG TABLET PO SCH (08:58)
[2021-08-14] MEDS: CARVEDILOL 12.5 MG TABLET. PO SCH ×2 (08:58→17:26)
[2021-08-14] MEDS: CYANOCOBALAMIN (VITAMIN B-12) 1,000 MCG TABLET. PO SCH (08:59)
--- NOTE | 2021-08-14 10:16 | PDOC ---
PROGRESS NOTES Date of Service DATE: 08/14/21 TIME: 10:12 Assessment Gait disorder Severe peripheral neuropathy. Diabetes the most likely cause. A1C 12.7. Normal B12 Nausea, vomiting, patient has known gastroparesis. Recent meningitis. ESR 46 Plan Rehabilitation modalities Physical therapy is recommending acute rehab, patient is resistant MRI of the brain Laboratory studies for other causes of neuropathy, all back except RANDY and SPEP. Subjective No complaints Objective Vital Signs Date Time Temp Pulse Resp B/P (MAP) Pulse Ox O2 Delivery O2 Flow Rate FiO2 08/14/21 08:58 85 163/77 08/14/21 08:00 Room Air 08/14/21 07:00 97.4 18 97 97.4 Intake and Output 08/14/21 07:00 Intake Total 120 ml Output Total 1201 ml Balance -1081 ml Intake Oral 120 ml Output Urine Total 1201 ml PHYSICAL EXAM Alert. Oriented to time, place and person. PERRL. EOMI. CN: no focal findings. Muscle tone: normal. Muscle strength: 4/5 DTR: 0-1+ Plantar reflex: Flexor Gait: not examined in bed. Sensory exam: Stocking loss. No cerebellar signs elicited. Review of Relevant I have reviewed the following items remy (where applicable) has been applied. Labs Laboratory Tests Test 08/13/21 04:05 08/13/21 05:54 08/13/21 08:23 08/13/21 11:28 White Blood Count 10.3 x10^3/uL (4.0-11.0) Red Blood Count 3.64 x10^6/uL (3.50-5.40) Hemoglobin 10.9 g/dL (12.0-15.5) Hematocrit 33.3 % (36.0-47.0) Mean Corpuscular Volume 92 fL (79-100) Mean Corpuscular Hemoglobin 30 pg (25-35) Mean Corpuscular Hemoglobin Concent 33 g/dL (31-37) Red Cell Distribution Width 15.4 % (11.5-14.5) Platelet Count 255 x10^3/uL (140-400) Neutrophils (%) (Auto) 81 % (31-73) Lymphocytes (%) (Auto) 10 % (24-48) Monocytes (%) (Auto) 5 % (0-9) Eosinophils (%) (Auto) 4 % (0-3) Basophils (%) (Auto) 0 % (0-3) Neutrophils # (Auto) 8.4 x10^3/uL (1.8-7.7) Lymphocytes # (Auto) 1.0 x10^3/uL (1.0-4.8) Monocytes # (Auto) 0.5 x10^3/uL (0.0-1.1) Eosinophils # (Auto) 0.4 x10^3/uL (0.0-0.7) Basophils # (Auto) 0.0 x10^3/uL (0.0-0.2) Sodium Level 135 mmol/L (136-145) Potassium Level 4.2 mmol/L (3.5-5.1) Chloride Level 98 mmol/L (98-107) Carbon Dioxide Level 31 mmol/L (21-32) Anion Gap 6 (6-14) Blood Urea Nitrogen 30 mg/dL (7-20) Creatinine 1.8 mg/dL (0.6-1.0) Estimated GFR (Cockcroft-Gault) 28.3 BUN/Creatinine Ratio 17 (6-20) Glucose Level 57 mg/dL (70-99) Hemoglobin A1c 12.7 % (4.8-5.6) Calcium Level 8.7 mg/dL (8.5-10.1) Total Bilirubin 0.2 mg/dL (0.2-1.0) Aspartate Amino Transf (AST/SGOT) 19 U/L (15-37) Alanine Aminotransferase (ALT/SGPT) 29 U/L (14-59) Alkaline Phosphatase 88 U/L (46-116) Total Protein 6.3 g/dL (6.4-8.2) Albumin 2.7 g/dL (3.4-5.0) Albumin/Globulin Ratio 0.8 (1.0-1.7) Vitamin B12 Level > 2000 pg/mL (247-911) Glucose (Fingerstick) 70 mg/dL (70-99) 70 mg/dL (70-99) 60 mg/dL (70-99) Test 08/13/21 17:10 08/13/21 18:10 08/13/21 20:45 08/13/21 21:30 Glucose (Fingerstick) 325 mg/dL (70-99) 316 mg/dL (70-99) Urine Collection Type Unknown Urine Color (Auto) Light yellow Urine Turbidity Clear Urine pH (Auto) 5.5 (<5.0-8.0) Urine Specific [place] 1.015 (1.000-1.030) Urine Protein (Auto) 70 mg/dL (Negative) Urine Glucose (Auto)(UA) Negative mg/dL (Negative) Urine Ketones (Auto) Negative mg/dL (Negative) Urine Blood (Auto) Negative (Negative) Urine Nitrite Negative (Negative) Urine Bilirubin (Auto) Negative (Negative) Urine Urobilinogen (Auto) Normal mg/dL (Normal) Urine Leukocyte Esterase (Auto) Negative (Negative) Urine RBC 0 /HPF (0-2) Urine WBC 0 /HPF (0-4) Urine Squamous Epithelial Cells Few /LPF Urine Bacteria 0 /HPF (0-FEW) Urine Hyaline Casts Moderate /HPF Urine Mucus Slight /LPF Urine Opiates Screen Pos (NEG) Urine Methadone Screen Neg (NEG) Urine Barbiturates Neg (NEG) Urine Phencyclidine Screen Neg (NEG) Urine Amphetamine/Methamphetamine Neg (NEG) Urine Benzodiazepines Screen Neg (NEG) Urine Cocaine Screen Neg (NEG) Urine Cannabinoids Screen Neg (NEG) Urine Ethyl Alcohol Neg (NEG) Erythrocyte Sedimentation Rate 46 (0-25) Test 08/14/21 05:25 08/14/21 08:12 White Blood Count 6.0 x10^3/uL (4.0-11.0) Red Blood Count 3.46 x10^6/uL (3.50-5.40) Hemoglobin 10.4 g/dL (12.0-15.5) Hematocrit 31.8 % (36.0-47.0) Mean Corpuscular Volume 92 fL (79-100) Mean Corpuscular Hemoglobin 30 pg (25-35) Mean Corpuscular Hemoglobin Concent 33 g/dL (31-37) Red Cell Distribution Width 14.9 % (11.5-14.5) Platelet Count 235 x10^3/uL (140-400) Sodium Level 138 mmol/L (136-145) Potassium Level 4.3 mmol/L (3.5-5.1) Chloride Level 102 mmol/L (98-107) Carbon Dioxide Level 29 mmol/L (21-32) Anion Gap 7 (6-14) Blood Urea Nitrogen 32 mg/dL (7-20) Creatinine 1.5 mg/dL (0.6-1.0) Estimated GFR (Cockcroft-Gault) 35.0 BUN/Creatinine Ratio 21 (6-20) Glucose Level 146 mg/dL (70-99) Calcium Level 8.7 mg/dL (8.5-10.1) Total Bilirubin 0.2 mg/dL (0.2-1.0) Aspartate Amino Transf (AST/SGOT) 16 U/L (15-37) Alanine Aminotransferase (ALT/SGPT) 23 U/L (14-59) Alkaline Phosphatase 86 U/L (46-116) Total Protein 5.9 g/dL (6.4-8.2) Albumin 2.3 g/dL (3.4-5.0) Albumin/Globulin Ratio 0.6 (1.0-1.7) Glucose (Fingerstick) 127 mg/dL (70-99) Laboratory Tests Test 08/13/21 11:28 08/13/21 17:10 08/13/21 18:10 08/13/21 20:45 Glucose (Fingerstick) 60 mg/dL (70-99) 325 mg/dL (70-99) 316 mg/dL (70-99) Urine Collection Type Unknown Urine Color (Auto) Light yellow Urine Turbidity Clear Urine pH (Auto) 5.5 (<5.0-8.0) Urine Specific [place] 1.015 (1.000-1.030) Urine Protein (Auto) 70 mg/dL (Negative) Urine Glucose (Auto)(UA) Negative mg/dL (Negative) Urine Ketones (Auto) Negative mg/dL (Negative) Urine Blood (Auto) Negative (Negative) Urine Nitrite Negative (Negative) Urine Bilirubin (Auto) Negative (Negative) Urine Urobilinogen (Auto) Normal mg/dL (Normal) Urine Leukocyte Esterase (Auto) Negative (Negative) Urine RBC 0 /HPF (0-2) Urine WBC 0 /HPF (0-4) Urine Squamous Epithelial Cells Few /LPF Urine Bacteria 0 /HPF (0-FEW) Urine Hyaline Casts Moderate /HPF Urine Mucus Slight /LPF Urine Opiates Screen Pos (NEG) Urine Methadone Screen Neg (NEG) Urine Barbiturates Neg (NEG) Urine Phencyclidine Screen Neg (NEG) Urine Amphetamine/Methamphetamine Neg (NEG) Urine Benzodiazepines Screen Neg (NEG) Urine Cocaine Screen Neg (NEG) Urine Cannabinoids Screen Neg (NEG) Urine Ethyl Alcohol Neg (NEG) Test 08/13/21 21:30 08/14/21 05:25 08/14/21 08:12 Erythrocyte Sedimentation Rate 46 (0-25) White Blood Count 6.0 x10^3/uL (4.0-11.0) Red Blood Count 3.46 x10^6/uL (3.50-5.40) Hemoglobin 10.4 g/dL (12.0-15.5) Hematocrit 31.8 % (36.0-47.0) Mean Corpuscular Volume 92 fL (79-100) Mean Corpuscular Hemoglobin 30 pg (25-35) Mean Corpuscular Hemoglobin Concent 33 g/dL (31-37) Red Cell Distribution Width 14.9 % (11.5-14.5) Platelet Count 235 x10^3/uL (140-400) Sodium Level 138 mmol/L (136-145) Potassium Level 4.3 mmol/L (3.5-5.1) Chloride Level 102 mmol/L (98-107) Carbon Dioxide Level 29 mmol/L (21-32) Anion Gap 7 (6-14) Blood Urea Nitrogen 32 mg/dL (7-20) Creatinine 1.5 mg/dL (0.6-1.0) Estimated GFR (Cockcroft-Gault) 35.0 BUN/Creatinine Ratio 21 (6-20) Glucose Level 146 mg/dL (70-99) Calcium Level 8.7 mg/dL (8.5-10.1) Total Bilirubin 0.2 mg/dL (0.2-1.0) Aspartate Amino Transf (AST/SGOT) 16 U/L (15-37) Alanine Aminotransferase (ALT/SGPT) 23 U/L (14-59) Alkaline Phosphatase 86 U/L (46-116) Total Protein 5.9 g/dL (6.4-8.2) Albumin 2.3 g/dL (3.4-5.0) Albumin/Globulin Ratio 0.6 (1.0-1.7) Glucose (Fingerstick) 127 mg/dL (70-99) Microbiology 08/13/21 Blood Culture - Preliminary, Resulted NO GROWTH AFTER 1 DAY Medications Current Medications Fentanyl (Duragesic 25mcg/ Hr Patch) 1 patch Q3DAYS TD ; Start 08/13/21 at 09:00 Pharmacy Consult (C.diff Med Screen By Rx) 1 each 1X ONCE [facility] ; Start 08/13/21 at 01:45; Stop 08/13/21 at 01:46; Status DC Ondansetron HCl (Zofran) 4 mg PRN Q6HRS PRN IVP NAUSEA/VOMITING 1ST CHOICE; Start 08/13/21 at 01:45 Sodium Chloride 1,000 ml @ 100 mls/hr Q10H IV Last administered on 08/13/21at 09:32; Start 08/13/21 at 09:15 Acetaminophen (Tylenol Supp) 650 mg PRN Q4HRS PRN [place] MILD PAIN / TEMP > 100.3'F; Start 08/13/21 at 09:15 Acetaminophen (Tylenol) 650 mg PRN Q4HRS PRN PO MILD PAIN / TEMP > 100.3'F Last administered on 08/13/21at 23:58; Start 08/13/21 at 09:15 Allopurinol (Zyloprim) 100 mg DAILY PO Last administered on 08/14/21at 08:57; Start 08/14/21 at 09:00 Aspirin (Presley Aspirin) 325 mg DAILY PO Last administered on 08/14/21at 08:58; Start 08/14/21 at 09:00 Atorvastatin Calcium (Lipitor) 80 mg HS PO Last administered on 08/13/21at 20:56; Start 08/13/21 at 21:00 Clopidogrel Bisulfate (Plavix) 75 mg DAILY PO Last administered on 08/14/21at 08:57; Start 08/14/21 at 09:00 Docusate Sodium (Colace) 100 mg BID PO Last administered on 08/14/21at 08:58; Start 08/13/21 at 21:00 Duloxetine HCl (Cymbalta) 20 mg DAILY PO Last administered on 08/14/21at 08:57; Start 08/14/21 at 09:00 Hydralazine HCl (Apresoline) 10 mg BID PO Last administered on 08/14/21at 08:58; Start 08/13/21 at 21:00 Insulin Human Lispro (HumaLOG) 15 units TIDBFRMEAL SQ Last administered on 08/13/21at 18:10; Start 08/13/21 at 18:00 Isosorbide Mononitrate (Imdur) 30 mg DAILY PO Last administered on 08/14/21at 08:57; Start 08/14/21 at 09:00 Carvedilol (Coreg) 12.5 mg BIDWMEALS PO Last administered on 08/14/21at 08:58; Start 08/13/21 at 18:00 Cyanocobalamin (Vitamin B-12) 500 mcg DAILY PO ; Start 08/14/21 at 09:00 Folic Acid (Folic Acid) 0.5 mg DAILY PO Last administered on 08/14/21at 08:58; Start 08/14/21 at 09:00 Gabapentin (Neurontin) 600 mg BID PO Last administered on 08/14/21at 08:57; Start 08/13/21 at 21:00 Insulin Glargine (Lantus Syringe) 30 unit QHS SQ Last administered on 08/13/21at 21:03; Start 08/13/21 at 21:00 Active Scripts Active Humalog (Insulin Lispro) 100 Unit/1 Ml Vial 15 Unit SQ TIDBFRMEAL 30 Days Lantus Solostar (Insulin Glargine,Hum.rec.anlog) 100 Unit/1 Ml Insuln.pen 30 Unit SQ QHS 30 Days Aspirin 325 Mg Tablet 1 Tab PO DAILY 30 Days Reported Isosorbide Mononitrate Er (Isosorbide Mononitrate) 30 Mg Tab.er.24h 1 Tab PO DAILY Hydralazine Hcl 10 Mg Tablet 1 Tab PO BID Gabapentin 600 Mg Tablet 600 Mg PO BID Carvedilol 25 Mg Tablet 12.5 Mg PO BIDWMEALS Atorvastatin Calcium 40 Mg Tablet 80 Mg PO HS Allopurinol 100 Mg Tablet 1 Tab PO DAILY Folic Acid 0.4 Mg Tablet 0.4 Mg PO DAILY FENTANYL 25mcg/hr (Fentanyl) 1 Each Patch.td72 1 Patch TP Q3DAYS Cymbalta (Duloxetine Hcl) 20 Mg Capsule.dr 1 Cap PO DAILY Colace (Docusate Sodium) 100 Mg Capsule 1 Cap PO BID 30 Days Vitamin B-12 (Cyanocobalamin (Vitamin B-12)) 500 Mcg Tab.subl 500 Mcg SL DAILY Clopidogrel (Clopidogrel Bisulfate) 75 Mg Tablet 1 Tab PO DAILY Vitals/I & O Vital Sign - Last 24 Hours 08/13/21 08/13/21 08/13/2125/22 10:31 12:08 15:00 18:05 Temp 101.4 98.8 98.9 101.4 98.8 98.9 Pulse 103 90 86 Resp 19 16 B/P (MAP) 138/63 (88) 151/70 (97) 158/65 Pulse Ox 91 99 O2 Delivery Room Air Room Air 08/13/21 08/13/21 08/13/21 08/13/21 19:02 20:00 20:56 23:30 Temp 99.5 98.9 99.5 98.9 Pulse 88 88 88 Resp 16 18 B/P (MAP) 158/65 (96) 158/65 141/64 (89) Pulse Ox 95 98 O2 Delivery Room Air Room Air Room Air 08/14/21 08/14/21 08/14/21 08/14/21 02:55 07:00 08:00 08:57 Temp 98.8 97.4 98.8 97.4 Pulse 83 80 86 Resp 20 18 B/P (MAP) 158/73 (101) 163/77 (105) 163/77 Pulse Ox 97 97 O2 Delivery Room Air Room Air Room Air 08/14/21 08/14/21 08:58 08:58 Pulse 85 85 B/P (MAP) 163/77 163/77 Intake and Output 08/13/21 08/13/21 08/14/21 15:00 23:00 07:00 Intake Total 0 ml 120 ml Output Total 1 ml 600 ml 600 ml Balance -1 ml -600 ml -480 ml Justicifation of Admission Dx: Justifications for Admission: Justification of Admission Dx: Yes YODIT STREETER MD Aug 14, 2021 10:16
[2021-08-14 11:00] VITALS: BP 144/65
[2021-08-14 15:00] VITALS: BP 161/71
--- NOTE | 2021-08-14 15:41 | RAD ---
MRI BRAIN WO History:Reason: gait disorder, recent meningoencephalitis- / Spl. Instructions: / History: Technique: Multiplanar, multi sequential MR imaging was performed of the brain without contrast. Comparison: CT August 12, 2021 Findings: No acute infarct. No intracranial hemorrhage. No mass effect. No hydrocephalus. Mild brain parenchymal volume loss. Mild foci of FLAIR hyperintensities within the hemispheric white matter, most often due to chronic microvascular ischemia. A few scattered gradient hypointensities, l ikely related to prior microhemorrhages. Basal ganglia mineralization. Imaged orbits are unremarkable. Imaged paranasal sinuses and mastoid air cells are clear. Impression: 1. No acute intracranial abnormality. Electronically signed by: Waqar Escudero DO (08/14/2021 3:39 PM) [id number]
--- NOTE | 2021-08-14 16:29 | NUR ---
SS following for discharge planning. SS reviewed pt chart and discussed with pt RN. Pt is from home with daughter and is currently on room air. Neurology following. PT/OT recommended acute rehabilitation. SS met with pt in room and discussed discharge planning and acute rehabilitation. Pt declining acute rehabilitation at this time. SS will continue to follow for discharge planning.
[2021-08-14 19:50] VITALS: BP 156/69
[2021-08-14] MEDS: INSULIN GLARGINE SYRINGE. SQ SCH (21:00)
--- NOTE | 2021-08-14 22:07 | PN ---
DATE: 08/14/2021 SUBJECTIVE: The patient is sitting comfortably in her recliner in no apparent distress. She has eaten her breakfast and apparently participated in physical and occupational therapy. She is scheduled for an MRI today. She continued to complain of pain and suggesting she take her hydromorphone in a liquid form. I explained to her that was available here in the hospital either tablets or injectable and unfortunately she has no vascular access. She did agree to take oral hydromorphone tablet. PHYSICAL EXAMINATION: GENERAL: When I examined her, she looked well and was clearly in no apparent respiratory distress, pale, not jaundiced or cyanosed. No thyromegaly. No jugular venous distention. No lower limb edema. VITAL SIGNS: Her heart rate was 86, blood pressure was 163/77, her temperature was 97.4, respiratory rate was 18 and oxygen saturation was 97%. HEAD, EYES, EARS, NOSE AND THROAT: Normocephalic, atraumatic. NECK: Supple. HEART: Showed normal first and second heart sounds. No gallop, rub or murmur. CHEST: Clear to auscultation, no crepitation or rhonchi. ABDOMEN: Distended, soft, nontender. NEUROLOGIC: She was awake, alert, responding appropriately. All cranial nerves are intact. She moves extremities without difficulty. Her intake and output are incompletely recorded. LABORATORY DATA: As of this morning, her white cell count was 6000, hemoglobin 10, hematocrit 32, MCV 92 and platelet count 235,000. Her chemistry showed a serum sodium 138, potassium 4.3, chloride 102, bicarbonate 29, anion gap of 7, BUN of 32, creatinine 1.5, estimated GFR was 35 mL per minute. Her glucose 146, calcium was 8.7. Total bilirubin, AST, ALT, alkaline phosphatase were normal. Total protein 5.9, albumin was 2.3. ASSESSMENT: 1. Generalized weakness, improving. 2. Nausea and vomiting, resolved. 3. Ataxia, for which she was seen by Dr. Serrano who did order an MRI. 4. Chronic pain syndrome. 5. Coronary artery disease. 6. Hyperlipidemia. 7. Hypertension. 8. Chronic kidney disease. RADHA DR: Geo TID: [id number]
[2021-08-14] MEDS: ATORVASTATIN CALCIUM 40 MG TABLET. PO SCH (22:38)
[2021-08-14] MEDS: HYDROmorphone 2 MG TABLET PO PRN (22:40)
--- NOTE | 2021-08-14 22:45 | NUR ---
pt blood sugar 88, pt refused scheduled lantus 30units, med held will cont to monitor pt. pmrn
[2021-08-14 23:59] VITALS: BP 132/61
[2021-08-15] MEDS: IV NORMAL SALINE 1000ML BAG 1,000 ML IV SCH ×2 (01:15→09:20)
[2021-08-15 02:44] VITALS: BP 148/67
[2021-08-15 07:00] VITALS: BP 182/81
[2021-08-15] MEDS: CYANOCOBALAMIN (VITAMIN B-12) 1,000 MCG TABLET. PO SCH (07:09)
[2021-08-15] MEDS: CLOPIDOGREL BISULFATE 75 MG TABLET PO SCH (08:14)
[2021-08-15] MEDS: ISOSORBIDE MONONITRATE ER 30 MG TAB.ER.24H PO SCH (08:14)
[2021-08-15] MEDS: ALLOPURINOL 100 MG TABLET. PO SCH (08:14)
[2021-08-15] MEDS: GABAPENTIN 300 MG CAPSULE. PO SCH (08:14)
[2021-08-15] MEDS: HYDROmorphone 2 MG TABLET PO PRN ×2 (08:14→15:14)
[2021-08-15] MEDS: DULoxetine HCL 20 MG CAPSULE.DR PO SCH (08:14)
[2021-08-15] MEDS: CARVEDILOL 12.5 MG TABLET. PO SCH (08:15)
[2021-08-15] MEDS: ASPIRIN 325 MG TABLET PO SCH (08:15)
[2021-08-15] MEDS: DOCUSATE SODIUM 100 MG CAPSULE. PO SCH (08:15)
[2021-08-15] MEDS: hydrALAZINE 10 MG TABLET PO SCH (08:15)
[2021-08-15] MEDS: FOLIC ACID 1 MG TABLET. PO SCH (08:15)
[2021-08-15] MEDS: INSULIN LISPRO 300 UNITS/3 ML VIAL. SQ SCH ×2 (08:20→11:23)
--- NOTE | 2021-08-15 10:09 | PDOC ---
PROGRESS NOTES Date of Service DATE: 08/15/21 TIME: 10:05 Assessment Gait disorder Severe peripheral neuropathy. Diabetes the most likely cause. A1C 12.7. Normal B12 Nausea, vomiting, patient has known gastroparesis. Recent meningitis. ESR 46 Normal brain MRI Plan Rehabilitation modalities Physical therapy is recommending acute rehab, patient has been resistant but after discussion today is willing to consider it. Social work to see patient Laboratory studies for other causes of neuropathy, all back except RANDY and SPEP. Subjective No complaints Objective Vital Signs Date Time Temp Pulse Resp B/P (MAP) Pulse Ox O2 Delivery O2 Flow Rate FiO2 08/15/21 08:48 97 Room Air 08/15/21 08:15 79 148/67 08/15/21 07:00 98.3 16 98.3 Intake and Output 08/15/21 07:00 Intake Total 1030 ml Output Total 450 ml Balance 580 ml Intake Oral 1030 ml Output Urine Total 450 ml PHYSICAL EXAM Alert. Oriented to time, place and person. PERRL. EOMI. CN: no focal findings. Muscle tone: normal. Muscle strength: 4/5 DTR: 0-1+ Plantar reflex: Flexor Gait: not examined in bed. Sensory exam: Stocking loss. No cerebellar signs elicited. Review of Relevant I have reviewed the following items remy (where applicable) has been applied. Labs Laboratory Tests Test 08/13/21 11:28 08/13/21 17:10 08/13/21 18:10 08/13/21 20:45 Glucose (Fingerstick) 60 mg/dL (70-99) 325 mg/dL (70-99) 316 mg/dL (70-99) Urine Collection Type Unknown Urine Color (Auto) Light yellow Urine Turbidity Clear Urine pH (Auto) 5.5 (<5.0-8.0) Urine Specific [place] 1.015 (1.000-1.030) Urine Protein (Auto) 70 mg/dL (Negative) Urine Glucose (Auto)(UA) Negative mg/dL (Negative) Urine Ketones (Auto) Negative mg/dL (Negative) Urine Blood (Auto) Negative (Negative) Urine Nitrite Negative (Negative) Urine Bilirubin (Auto) Negative (Negative) Urine Urobilinogen (Auto) Normal mg/dL (Normal) Urine Leukocyte Esterase (Auto) Negative (Negative) Urine RBC 0 /HPF (0-2) Urine WBC 0 /HPF (0-4) Urine Squamous Epithelial Cells Few /LPF Urine Bacteria 0 /HPF (0-FEW) Urine Hyaline Casts Moderate /HPF Urine Mucus Slight /LPF Urine Opiates Screen Pos (NEG) Urine Methadone Screen Neg (NEG) Urine Barbiturates Neg (NEG) Urine Phencyclidine Screen Neg (NEG) Urine Amphetamine/Methamphetamine Neg (NEG) Urine Benzodiazepines Screen Neg (NEG) Urine Cocaine Screen Neg (NEG) Urine Cannabinoids Screen Neg (NEG) Urine Ethyl Alcohol Neg (NEG) Test 08/13/21 21:30 08/14/21 05:25 08/14/21 08:12 08/14/21 11:22 Erythrocyte Sedimentation Rate 46 (0-25) White Blood Count 6.0 x10^3/uL (4.0-11.0) Red Blood Count 3.46 x10^6/uL (3.50-5.40) Hemoglobin 10.4 g/dL (12.0-15.5) Hematocrit 31.8 % (36.0-47.0) Mean Corpuscular Volume 92 fL (79-100) Mean Corpuscular Hemoglobin 30 pg (25-35) Mean Corpuscular Hemoglobin Concent 33 g/dL (31-37) Red Cell Distribution Width 14.9 % (11.5-14.5) Platelet Count 235 x10^3/uL (140-400) Sodium Level 138 mmol/L (136-145) Potassium Level 4.3 mmol/L (3.5-5.1) Chloride Level 102 mmol/L (98-107) Carbon Dioxide Level 29 mmol/L (21-32) Anion Gap 7 (6-14) Blood Urea Nitrogen 32 mg/dL (7-20) Creatinine 1.5 mg/dL (0.6-1.0) Estimated GFR (Cockcroft-Gault) 35.0 BUN/Creatinine Ratio 21 (6-20) Glucose Level 146 mg/dL (70-99) Calcium Level 8.7 mg/dL (8.5-10.1) Total Bilirubin 0.2 mg/dL (0.2-1.0) Aspartate Amino Transf (AST/SGOT) 16 U/L (15-37) Alanine Aminotransferase (ALT/SGPT) 23 U/L (14-59) Alkaline Phosphatase 86 U/L (46-116) Total Protein 5.9 g/dL (6.4-8.2) Albumin 2.3 g/dL (3.4-5.0) Albumin/Globulin Ratio 0.6 (1.0-1.7) Glucose (Fingerstick) 127 mg/dL (70-99) 325 mg/dL (70-99) Test 08/14/21 17:24 08/14/21 21:25 08/15/21 08:05 Glucose (Fingerstick) 190 mg/dL (70-99) 88 mg/dL (70-99) 326 mg/dL (70-99) Laboratory Tests Test 08/14/21 11:22 08/14/21 17:24 08/14/21 21:25 08/15/21 08:05 Glucose (Fingerstick) 325 mg/dL (70-99) 190 mg/dL (70-99) 88 mg/dL (70-99) 326 mg/dL (70-99) Microbiology 08/13/21 Blood Culture - Preliminary, Resulted NO GROWTH AFTER 2 DAYS Medications Current Medications Fentanyl (Duragesic 25mcg/ Hr Patch) 1 patch Q3DAYS TD ; Start 08/13/21 at 09:00 Pharmacy Consult (C.diff Med Screen By Rx) 1 each 1X ONCE [facility] ; Start 08/13/21 at 01:45; Stop 08/13/21 at 01:46; Status DC Ondansetron HCl (Zofran) 4 mg PRN Q6HRS PRN IVP NAUSEA/VOMITING 1ST CHOICE; Start 08/13/21 at 01:45 Sodium Chloride 1,000 ml @ 100 mls/hr Q10H IV Last administered on 08/13/21at 09:32; Start 08/13/21 at 09:15 Acetaminophen (Tylenol Supp) 650 mg PRN Q4HRS PRN [place] MILD PAIN / TEMP > 1 00.3'F; Start 08/13/21 at 09:15 Acetaminophen (Tylenol) 650 mg PRN Q4HRS PRN PO MILD PAIN / TEMP > 100.3'F Last administered on 08/13/21at 23:58; Start 08/13/21 at 09:15 Allopurinol (Zyloprim) 100 mg DAILY PO Last administered on 08/15/21at 08:14; Start 08/14/21 at 09:00 Aspirin (Presley Aspirin) 325 mg DAILY PO Last administered on 08/15/21 08:15; Start 08/14/21 at 09:00 Atorvastatin Calcium (Lipitor) 80 mg HS PO Last administered on 08/14/21 22:38; Start 08/13/21 at 21:00 Clopidogrel Bisulfate (Plavix) 75 mg DAILY PO Last administered on 08/15/21 08:14; Start 08/14/21 at 09:00 Docusate Sodium (Colace) 100 mg BID PO Last administered on 08/15/21 08:15; Start 08/13/21 at 21:00 Duloxetine HCl (Cymbalta) 20 mg DAILY PO Last administered on 08/15/21 08:14; Start 08/14/21 at 09:00 Hydralazine HCl (Apresoline) 10 mg BID PO Last administered on 08/15/21 08:15; Start 08/13/21 at 21:00 Insulin Human Lispro (HumaLOG) 15 units TIDBFRMEAL SQ Last administered on 08/15/21 08:20; Start 08/13/21 at 18:00 Isosorbide Mononitrate (Imdur) 30 mg DAILY PO Last administered on 08/15/21 08:14; Start 08/14/21 at 09:00 Carvedilol (Coreg) 12.5 mg BIDWMEALS PO Last administered on 08/15/21 08:15; Start 08/13/21 at 18:00 Cyanocobalamin (Vitamin B-12) 500 mcg DAILY PO ; Start 08/14/21 at 09:00 Folic Acid (Folic Acid) 0.5 mg DAILY PO Last administered on 08/15/21 08:15; Start 08/14/21 at 09:00 Gabapentin (Neurontin) 600 mg BID PO Last administered on 08/15/21 08:14; Start 08/13/21 at 21:00 Insulin Glargine (Lantus Syringe) 30 unit QHS SQ Last administered on 08/13/21 21:03; Start 08/13/21 at 21:00 Hydromorphone HCl (Dilaudid) 2 mg PRN Q6HRS PRN PO PAIN Last administered on 08/15/21 08:14; Start 08/14/21 at 11:15 Active Scripts Active Humalog (Insulin Lispro) 100 Unit/1 Ml Vial 15 Unit SQ TIDBFRMEAL 30 Days Lantus Solostar (Insulin Glargine,Hum.rec.anlog) 100 Unit/1 Ml Insuln.pen 30 Unit SQ QHS 30 Days Aspirin 325 Mg Tablet 1 Tab PO DAILY 30 Days Reported Isosorbide Mononitrate Er (Isosorbide Mononitrate) 30 Mg Tab.er.24h 1 Tab PO DAILY Hydralazine Hcl 10 Mg Tablet 1 Tab PO BID Gabapentin 600 Mg Tablet 600 Mg PO BID Carvedilol 25 Mg Tablet 12.5 Mg PO BIDWMEALS Atorvastatin Calcium 40 Mg Tablet 80 Mg PO HS Allopurinol 100 Mg Tablet 1 Tab PO DAILY Folic Acid 0.4 Mg Tablet 0.4 Mg PO DAILY FENTANYL 25mcg/hr (Fentanyl) 1 Each Patch.td72 1 Patch TP Q3DAYS Cymbalta (Duloxetine Hcl) 20 Mg Capsule.dr 1 Cap PO DAILY Colace (Docusate Sodium) 100 Mg Capsule 1 Cap PO BID 30 Days Vitamin B-12 (Cyanocobalamin (Vitamin B-12)) 500 Mcg Tab.subl 500 Mcg SL DAILY Clopidogrel (Clopidogrel Bisulfate) 75 Mg Tablet 1 Tab PO DAILY Vitals/I & O Vital Sign - Last 24 Hours 08/14/21 08/14/21 08/14/21 08/14/21 11:00 15:00 17:26 19:50 Temp 99.5 98.2 98.3 99.5 98.2 98.3 Pulse 78 80 80 81 Resp 16 18 18 B/P (MAP) 144/65 (91) 161/71 (101) 161/71 156/69 (98) Pulse Ox 95 98 95 O2 Delivery Room Air Nasal Cannula Room Air 08/14/21 08/14/21 08/14/21 08/14/21 20:30 22:38 22:40 23:10 Pulse 81 B/P (MAP) 156/69 O2 Delivery Room Air Room Air Room Air 08/14/21 08/15/21 08/15/21 08/15/21 23:59 02:44 07:00 08:00 Temp 98.3 98.1 98.3 98.3 98.1 98.3 Pulse 77 79 83 Resp 16 16 16 B/P (MAP) 132/61 (84) 148/67 (94) 182/81 (114) Pulse Ox 95 97 95 O2 Delivery Room Air Room Air Room Air Room Air 08/15/21 08/15/21 08/15/21 08/15/21 08:14 08:14 08:15 08:15 Pulse 79 79 79 B/P (MAP) 180/78 148/67 148/67 Pulse Ox 97 O2 Delivery Room Air 08/15/21 08:48 Pulse Ox 97 O2 Delivery Room Air Intake and Output 08/14/21 08/14/21 08/15/21 15:00 23:00 07:00 Intake Total 530 ml 180 ml 320 ml Output Total 450 ml Balance 530 ml 180 ml -130 ml Images MRI BRAIN WO, 08/14/2021 3:39 PM History:Reason: gait disorder, recent meningoencephalitis- / Spl. Instructions: / History: Technique: Multiplanar, multi sequential MR imaging was performed of the brain without contrast. Comparison: CT August 12, 2021 Findings: No acute infarct. No intracranial hemorrhage. No mass effect. No hydrocephalus. Mild brain parenchymal volume loss. Mild foci of FLAIR hyperintensities within the hemispheric white matter, most often due to chronic microvascular ischemia. A few scattered gradient hypointensities, likely related to prior microhemorrhages. Basal ganglia mineralization. Imaged orbits are unremarkable. Imaged paranasal sinuses and mastoid air cells are clear. Impression: 1. No acute intracranial abnormality. Justicifation of Admission Dx: Justifications for Admission: Justification of Admission Dx: Yes YODIT STREETER MD Aug 15, 2021 10:09
[2021-08-15 10:57] VITALS: BP 171/73
[2021-08-15] MEDS ORDERED: hydrALAZINE 10 MG TABLET PO SCH (11:00)
[2021-08-15] MEDS ORDERED: CARVEDILOL 12.5 MG TABLET. PO SCH ×2 (11:00→17:00)
--- NOTE | 2021-08-15 11:18 | NUR ---
SS following up with discharge planning. SS reviewed pt chart and discussed with pt RN. Pt is currently on room air. PT/OT recommended acute rehabilitation. SS met with pt this morning and pt reported that after speaking with Neurologist she is agreeable to acute rehabilitation. Pt requesting referral to [facility], ; fax [phone]. Referral sent as requested. No COVID19 test requirements per facility. SS will continue to follow for discharge planning. Addendum: 08/15/21 at 1432 by JEREMIAH ZHAO SS [facility] declined pt. Pt agreeable to referral to [facility], ; fax [phone]. Referral sent and pt accepted. Discharge orders received and sent to [facility]. Pt will discharge today and go to [facility]. [facility] to provide transportation. Pt and pt's RN notified.
[2021-08-15] MEDS ORDERED: CARVEDILOL 12.5 MG TABLET. PO ONE (11:30)
[2021-08-15 12:54] VITALS: BP 113/55
--- NOTE | 2021-08-15 13:17 | SNU/HH DC ---
DISCHARGE ORDERS DISCHARGE INFORMATION: DISCHARGE DATE: Aug 15, 2021 FINAL DIAGNOSIS [facility] PERIPHERAL NEUROPATHY CONDITION ON DISCHARGE: Stable CODE STATUS: Code Status: Full SNF: SNF STAY <30 DAYS: Yes POST DISCHARGE ORDERS: ACTIVITY ORDERS: Activity as tolerated DIET AFTER DISCHARGE: ADA CHECKS AFTER DISCHARGE: CHECKS AFTER DISCHARGE: Check blood press - daily, Check blood sugar, ac/hs TREATMENT/EQUIPMENT ORDERS: ADAPTIVE EQUIPMENT NEEDED: None Physical Therapy For: Evalulation/Treatment Occupational Therapy For: Evaluation/Treatment DISCHARGE MEDICATIONS: Home Meds Active Scripts Insulin Lispro (HUMALOG) 100 Unit/1 Ml Vial, 15 UNIT SQ TIDBFRMEAL for dm for 30 Days, #15 EACH 5 Refills Prov:SIRI SAHA MD 07/31/21 Insulin Glargine,Hum.rec.anlog (LANTUS SOLOSTAR) 100 Unit/1 Ml Insuln.pen, 30 UNIT SQ QHS for dm for 30 Days, #15 ML 3 Refills Prov:SIRI SAHA MD 07/31/21 Aspirin (ASPIRIN) 325 Mg Tablet, 1 TAB PO DAILY for cad for 30 Days, #30 TAB 5 Refills Prov:SIRI SAHA MD 07/31/21 Reported Medications Isosorbide Mononitrate (ISOSORBIDE MONONITRATE ER) 30 Mg Tab.er.24h, 1 TAB PO DAILY for bp, #90 TAB 1 Refill 07/25/21 Hydralazine Hcl (HYDRALAZINE HCL) 10 Mg Tablet, 1 TAB PO BID for bp, #180 TAB 3 Refills 07/25/21 Gabapentin (GABAPENTIN) 600 Mg Tablet, 600 MG PO BID for NEUROGENIC PAIN, TAB 07/25/21 Carvedilol (CARVEDILOL) 25 Mg Tablet, 12.5 MG PO BIDWMEALS for CARDIAC, TAB 07/25/21 Atorvastatin Calcium (ATORVASTATIN CALCIUM) 40 Mg Tablet, 80 MG PO HS for FOR CHOLESTEROL, #30 TAB 0 Refills 07/25/21 Allopurinol (ALLOPURINOL) 100 Mg Tablet, 1 TAB PO DAILY for gout, #30 TAB 5 Refills 07/25/21 Folic Acid (FOLIC ACID) 0.4 Mg Tablet, 0.4 MG PO DAILY for SUPPLEMENT, TAB 07/25/21 Fentanyl (FENTANYL 25mcg/hr) 1 Each Patch.td72, 1 PATCH TP Q3DAYS for pain, #10 PATCH 07/25/21 Duloxetine Hcl (CYMBALTA) 20 Mg Capsule.dr, 1 CAP PO DAILY for use, #30 CAP 2 Refills 07/25/21 Docusate Sodium (COLACE) 100 Mg Capsule, 1 CAP PO BID for stool softener for 30 Days, #60 CAP 0 Refills 07/25/21 Cyanocobalamin (Vitamin B-12) (Vitamin B-12) 500 Mcg Tab.subl, 500 MCG SL DAILY for supplement, TAB 07/25/21 Clopidogrel Bisulfate (CLOPIDOGREL) 75 Mg Tablet, 1 TAB PO DAILY for blood thinner, #90 TAB 1 Refill 07/25/21 SIRI SAHA MD Aug 15, 2021 13:17
[2021-08-15 15:15] LABS: ALPHA 1 0.3 g/dL (0.0-0.4); ALPHA 2 1.2 g/dL (0.4-1.0); BETA 0.8 g/dL (0.7-1.3); GAMMA 0.4 g/dL (0.4-1.8); PROTEIN TOTAL 5.6 g/dL (6.0-8.5); SPEP AG RATIO 1.2 (0.7-1.7)
--- NOTE | 2021-08-15 17:23 | NUR ---
Pharmacy Medication Review S: Consulted for medication review re: C.diff Risk Assessment score of 4 O: ISABELL BARRON is a 65 year old with: Previous C.diff infection: No Previous hospitalization: Within 30 days (07/28 thru 07/31/21) Recent antibiotics: Within 30 days AUGMENTIN Use of gastric acid suppressor: No Transfer from [place]: No Current antibiotic regimen: ZOSYN Current acid suppression regimen: N/A A: Patient has been identified as having risk factors for C.diff infection as noted above. P: Antibiotic Regimen recommendation made: N/A Probiotic ordered: ALREADY ORDERED PPI changed to B1thwthmn: N/A EULA GROVE RPH, 08/15/21 1723 Addendum: 08/15/21 at 1731 by EULA GROVE RPH PHA PREVIOUS HOSPITAL STAY 07/25 thru 07/31/21 ON ABX ROCEPHIN and DAPTO CULTURELLE ORDERED Addendum: 08/15/21 at 1732 by EULA GROVE RPH PHA MICHAEL MCKINNEY
--- NOTE | 2021-08-15 19:02 | NUR ---
Discharge Note: ALEXANDRA BARRON [facility] Discharge instructions and discharge home medications reviewed with Patient and a copy given. All questions have been answered and understanding verbalized. 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
[2021-08-15] MEDS ORDERED: LACTOBACILLUS RHAMNOSUS GG 1 CAPSULE. PO SCH (21:00)
[2021-08-15] MEDS ORDERED: hydrALAZINE 25 MG TABLET PO SCH (21:00)
[2021-08-15 21:09] LABS: ANA INTERP Negative (.)
== END 2021-08-15 17:30 | DRG 74 ==
LOC: 6 SOUTH 00:01
PROVIDERS: ADMIT Internal Medicine; ATTEND Internal Medicine
DX: E11.43 Type 2 diabetes mellitus with diabetic autonomic (poly)neuropathy (principal); I12.9 Hypertensive chronic kidney disease with stage 1 through stage 4 chronic kidney disease, or unspecified chronic kidney disease; E03.9 Hypothyroidism, unspecified; E11.22 Type 2 diabetes mellitus with diabetic chronic kidney disease; E78.5 Hyperlipidemia, unspecified; F17.200 Nicotine dependence, unspecified, uncomplicated; K31.84 Gastroparesis; N18.9 Chronic kidney disease, unspecified; F32.A Depression, unspecified; F41.9 Anxiety disorder, unspecified; G47.30 Sleep apnea, unspecified; K21.9 Gastro-esophageal reflux disease without esophagitis; K57.90 Diverticulosis of intestine, part unspecified, without perforation or abscess without bleeding; G62.9 Polyneuropathy, unspecified; G89.4 Chronic pain syndrome; I25.10 Atherosclerotic heart disease of native coronary artery without angina pectoris; I25.2 Old myocardial infarction; Z82.49 Family history of ischemic heart disease and other diseases of the circulatory system; Z86.61 Personal history of infections of the central nervous system; Z95.5 Presence of coronary angioplasty implant and graft; Z90.49 Acquired absence of other specified parts of digestive tract; Z88.5 Allergy status to narcotic agent; Z88.8 Allergy status to other drugs, medicaments and biological substances
CPT/HCPCS: 36415; 70551; 80053; 80307; 81001; 82607; 82962; 83036; 84165; 85025; 85027; 85651; 86038; 87040; J1815; J7030; 97116-GP; 97530-GO; 97535-GO; G0378

== ENCOUNTER 2021-09-04 13:27 | Inpatient (IN) | payer MEDICARE, OTHER ==
[~2021-09-04] VITALS: Ht 152.4 cm; Wt 86.3 kg
[2021-09-04 13:58] LABS: BASE EXCESS ABG 2 mmol/L (-3-3); HCO3 ABG 26 mmol/L (21-28); PCO2 ABG 43 mmHg (35-46); PO2 ABG 105 mmHg (65-108); SAT O2 ABG 97 % (92-99)
[2021-09-04 14:01] LABS: FIO2 ABG 100
[2021-09-04 14:34] LABS: BASO # 0.1 x10^3/uL (0.0-0.2); BASO % 1 % (0-3); EOS % 0 % (0-3); HEMATOCRIT 31.1 % (36.0-47.0); HEMOGLOBIN 10.4 g/dL (12.0-15.5); LYMPH # 0.5 x10^3/uL (1.0-4.8); LYMPH % 4 % (24-48); MEAN CORPUSCULAR HEMOGLOBIN 30 pg (25-35); MEAN CORPUSCULAR HGB CONC 33 g/dL (31-37); MEAN CORPUSCULAR VOLUME 91 fL (79-100); MONO # 0.6 x10^3/uL (0.0-1.1); MONO % 5 % (0-9); NEUT # 11.1 x10^3/uL (1.8-7.7); NEUT % 90 % (31-73); PLATELET COUNT 268 x10^3/uL (140-400); RED BLOOD COUNT 3.42 x10^6/uL (3.50-5.40); RED CELL DISTRIBUTION WIDTH 15.1 % (11.5-14.5); WHITE BLOOD COUNT 12.4 x10^3/uL (4.0-11.0)
[2021-09-04 14:44] LABS: PROTHROMBIN TIME PATIENT 12.7 SEC (11.7-14.0)
[2021-09-04 14:45] LABS: CALCIUM 8.6 mg/dL (8.5-10.1); GFR 25.1; POTASSIUM 5.4 mmol/L (3.5-5.1)
[2021-09-04 14:51] LABS: ALBUMIN/GLOBULIN RATIO 0.8 (1.0-1.7); TOTAL BILIRUBIN 0.3 mg/dL (0.2-1.0); TOTAL PROTEIN 6.9 g/dL (6.4-8.2)
[2021-09-04] MEDS ORDERED: INSULIN REGULAR 100 UNIT/ML 3ML VIAL. IV ONE (15:00)
[2021-09-04] MEDS ORDERED: IV NORMAL SALINE 500ML BAG 500 ML IV ONE ×2 (15:00→17:15)
--- NOTE | 2021-09-04 15:20 | RAD ---
CT Head W/O Contrast: History: Reason: ams / Spl. Instructions: / History: Comparison: none Axial images were obtained without contrast. The white and white matter appears normal and symmetrical for the patients age. There is no mass effe ct, extraaxial fluid collections or hydrocephalus. There is no gross bleed. There is no focal loss of white-white matter distinction to suggest acute ischemia, i.e. stroke. Impression: No acute findings. PQRS Compliance Statement: One or more of the following individualized dose reduction techniques were utilized for this examinat ion: 1. Automated exposure control 2. Adjustment of the mA and/or kV according to patient size 3. Use of iterative reconstruction technique Electronically signed by: Raymon Good III, MD (09/04/2021 3:18 PM) [facility]
--- NOTE | 2021-09-04 15:34 | RAD ---
CT CHEST_ABDOMEN_ AND PELVIS WITHOUT CONTRAST History: Sepsis. Comparison: CT abdomen pelvis 07/25/2021 Technique: CT of the chest abdomen and pelvis without contrast. Findings: Mild calcification of the aortic arch, normal caliber. Heavy coronary artery calcification and/or cor onary stent placements. Heart size is normal. No pericardial effusion. Diffusely enlarged thyroid gla nd. Calcified mediastinal and hilar lymph nodes. Prominent right lower pretracheal lymph node measure s 9 mm short axis, likely reactive. There is debris in the upper thoracic trachea. Dense consolidations of the right upper, right lower a nd left lower lobes. Mild consolidation involving the right middle and left upper lobes. No effusion or pneumothorax. Soft tissues the chest are unremarkable. Mild anterior wedging of the T5 vertebral b cynthia. The liver is unremarkable. Status post cholecystectomy. Unremarkable pancreas, spleen, adrenal glands and kidneys. Well-distended bladder. Normal appearance of the uterus and adnexa. Well-distended stomach without wall abnormality. No small bowel obstruction. Moderate stool throughou t the colon. No colonic wall thickening or pericolonic inflammatory change. Atherosclerotic calcifica tions of the aorta and iliac arteries without aneurysm. There is an infrarenal IVC filter in expected positioning. No intra-abdominal free air or free fluid. No adenopathy. Soft tissues are unremarkable . Multilevel degenerative changes in the spine with endplate sclerosis most severe at L5-S1 and Schmo rl's node in the superior endplate of L5. Impression: 1. Dense consolidations of the right upper, right lower, left lower lobes and mild consolidations th e right middle and left upper lobe. Findings may represent multifocal infection and/or aspiration, pa rticularly in the setting of debris in the upper thoracic trachea. 2. No acute findings in the abdomen and pelvis. 3. Mild wedging of the T5 vertebral body may represent age-indeterminate compression fracture. 4. Infrarenal IVC filter. A IVC filter is noted, and the referring physician is encouraged to ensure that a management plan for this filter is in place. If no such plan is present, referral to an inter ventional clinician on a non-emergent basis should be considered. The [employer] a ppropriateness criteria for placement and management of IVC filters can be found on the web at: https://acsearch.acr.org/docs/35251/Narrative/ ------ Exposure: One or more of the following individualized dose reduction techniques were utilized for thi s examination: 1. Automated exposure control 2. Adjustment of the mA and/or kV according to patient size 3. Use of iterative reconstruction technique. Electronically signed by: Mayco Navarrete MD (09/04/2021 3:32 PM) [id number]
[2021-09-04] MEDS ORDERED: PIPERACILLIN/TAZOBACTAM 2.25 GM in IV NORMAL SALINE 50ML 50 ML IV ONE (16:00)
[2021-09-04 16:15] LABS: AMPHETAMINE/METHAMPHETAMINE NEG (NEG); BARBITURATES NEG (NEG); BENZODIAZEPINES NEG (NEG); CANNABINOIDS NEG (NEG); COCAINE NEG (NEG); METHADONE NEG (NEG); OPIATES POS (NEG); PHENCYCLIDINE NEG (NEG)
--- NOTE | 2021-09-04 16:18 | PHYS DOC ---
Past Medical History Additional Past Medical Histor: chronic pain, gastroparesis, Kidney disease Past Surgical History: Cholecystectomy, , Other Smoking Status: Unknown if ever smoked Alcohol Use: None Additional Information: unknown General Adult EDM: Chief Complaint: ALTERED MENTAL STATUS HPI: HPI: Patient is a 65 year old female who presents with altered mental status. Reportedly, family noted the patient to be normal yesterday, patient was fairly unresponsive this morning, patient had 1 episode of emesis in the early afternoon and patient called EMS. She was found to be saturating at 68% on room air. She was placed on nasal cannula which brought her oxygenation up to 90%. Patient is not on oxygen at home. Patient is alert when given verbal stimulation. She is able to answer simple questions. She is altered and falls asleep quite readily. Patient states that her back hurts. This is her only complaint. EMS noted her to be febrile at 101 Fahrenheit. Patient was recently hospitalized for meningitis and hospitalized at our facility recently for neuropathy. Review of Systems: Review of Systems: Constitutional: Denies fever or chills. [] Eyes: Denies change in visual acuity. [] HENT: Denies nasal congestion or sore throat. [] Respiratory: Denies cough or shortness of breath. [] Cardiovascular: Denies chest pain or edema. [] GI: Denies abdominal pain, nausea, vomiting, bloody stools or diarrhea. [] : Denies dysuria. [] Musculoskeletal: + back pain no joint pain. [] Integument: Denies rash. [] Neurologic: Denies headache, focal weakness or sensory changes. [] Endocrine: Denies polyuria or polydipsia. [] Lymphatic: Denies swollen glands. [] Psychiatric: Denies depression or anxiety. [] Heart Score: C/O Chest Pain: No Risk Factors: Risk Factors: DM, Current or recent (<one month) smoker, HTN, HLP, family history of CAD, obesity. Risk Scores: Score 0 - 3: 2.5% MACE over next 6 weeks - Discharge Home Score 4 - 6: 20.3% MACE over next 6 weeks - Admit for Clinical Observation Score 7 - 10: 72.7% MACE over next 6 weeks - Early Invasive Strategies Current Medications: Current Medications Medications (Trade) Dose Ordered Sig/Marcelo Start Time Stop Time Status Last Admin Dose Admin Insulin Human Regular (HumuLIN R VIAL) 5 unit 1X ONCE 09/04/21 15:00 09/04/21 15:01 DC 09/04/21 15:19 5 UNIT Sodium Chloride 500 ml @ 500 mls/hr 1X ONCE 09/04/21 15:00 09/04/21 15:59 DC 09/04/21 15:20 500 MLS/HR Allergies: Allergies: Allergies Coded Allergies Type Severity Reaction Last Updated Verified morphine Allergy Intermediate 07/25/21 Yes oxycodone Allergy Intermediate 07/25/21 Yes pregabalin Allergy Intermediate 07/25/21 Yes Physical Exam: PE: Constitutional: Obese, toxic appearing, altered [] HENT: Normocephalic, atraumatic, bilateral external ears normal, oropharynx moist, no oral exudates, nose normal. [] Eyes: PERRLA, EOMI, conjunctiva normal, no discharge. [] Neck: Normal range of motion, no tenderness, supple, no stridor. [] Cardiovascular: Heart rate regular rhythm, no murmur [] Lungs & Thorax: Bilateral breath sounds diminished [] Abdomen: Bowel sounds normal, soft, no tenderness, no masses, no pulsatile masses. [] Skin: Warm, dry, no erythema, no rash. [] Back: minimal tenderness tp, no CVA tenderness. [] Extremities: No tenderness, no cyanosis, no clubbing, ROM intact, no edema. [] Neurologic: Becomes alert to verbal stimuli, normal motor function, normal sensory function, no focal deficits noted. [] Current Patient Data: Labs: Laboratory Tests Test 09/04/21 13:45 09/04/21 14:20 09/04/21 15:14 O2 Saturation 97 % (92-99) Arterial Blood pH 7.41 (7.35-7.45) Arterial Blood pCO2 at Patient Temp 43 mmHg (35-46) Arterial Blood pO2 at Patient Temp 105 mmHg (65-108) Arterial Blood HCO3 26 mmol/L (21-28) Arterial Blood Base Excess 2 mmol/L (-3-3) FiO2 100 White Blood Count 12.4 x10^3/uL (4.0-11.0) H Red Blood Count 3.42 x10^6/uL (3.50-5.40) L Hemoglobin 10.4 g/dL (12.0-15.5) L Hematocrit 31.1 % (36.0-47.0) L Mean Corpuscular Volume 91 fL (79-100) Mean Corpuscular Hemoglobin 30 pg (25-35) Mean Corpuscular Hemoglobin Concent 33 g/dL (31-37) Red Cell Distribution Width 15.1 % (11.5-14.5) H Platelet Count 268 x10^3/uL (140-400) Neutrophils (%) (Auto) 90 % (31-73) H Lymphocytes (%) (Auto) 4 % (24-48) L Monocytes (%) (Auto) 5 % (0-9) Eosinophils (%) (Auto) 0 % (0-3) Basophils (%) (Auto) 1 % (0-3) Neutrophils # (Auto) 11.1 x10^3/uL (1.8-7.7) H Lymphocytes # (Auto) 0.5 x10^3/uL (1.0-4.8) L Monocytes # (Auto) 0.6 x10^3/uL (0.0-1.1) Eosinophils # (Auto) 0.0 x10^3/uL (0.0-0.7) Basophils # (Auto) 0.1 x10^3/uL (0.0-0.2) Prothrombin Time 12.7 SEC (11.7-14.0) Prothrombin Time INR 1.0 (0.8-1.1) Activated Partial Thromboplast Time 26 SEC (24-38) Sodium Level 136 mmol/L (136-145) Potassium Level 5.4 mmol/L (3.5-5.1) H Chloride Level 98 mmol/L (98-107) Carbon Dioxide Level 28 mmol/L (21-32) Anion Gap 10 (6-14) Blood Urea Nitrogen 41 mg/dL (7-20) H Creatinine 2.0 mg/dL (0.6-1.0) H Estimated GFR (Cockcroft-Gault) 25.1 BUN/Creatinine Ratio 21 (6-20) H Glucose Level 201 mg/dL (70-99) H Lactic Acid Level 0.8 mmol/L (0.4-2.0) Calcium Level 8.6 mg/dL (8.5-10.1) Total Bilirubin 0.3 mg/dL (0.2-1.0) Aspartate Amino Transferase (AST) 23 U/L (15-37) Alanine Aminotransferase (ALT) 37 U/L (14-59) Alkaline Phosphatase 109 U/L (46-116) Creatine Kinase 213 U/L (26-192) H Troponin I High Sensitivity 27 ng/L (4-50) HZ-Anc-V-Type Natriuretic Peptide 4427 pg/mL (0-124) H Total Protein 6.9 g/dL (6.4-8.2) Albumin 3.0 g/dL (3.4-5.0) L Albumin/Globulin Ratio 0.8 (1.0-1.7) L Lipase 22 U/L (73-393) L Procalcitonin 0.17 ng/mL (0.00-0.10) H Ammonia 22 mcmol/L (11-34) Laboratory Tests 09/04/21 14:20 Laboratory Tests 09/04/21 14:20 Vital Signs: Vital Signs Date Time Temp Pulse Resp B/P (MAP) Pulse Ox O2 Delivery O2 Flow Rate FiO2 09/04/21 15:24 95 Nasal Cannula 5.0 09/04/21 13:51 99.9 98 20 142/117 (125) 99.9 EKG: EKG: Normal sinus rhythm [] Radiology/Procedures: Radiology/Procedures: Head CT within normal limits CT chest abdomen pelvis reveals dense consolidation in the right upper, right lower, left lower lobes and mild consolidations in the right middle and left upper lobes. Findings may represent multifocal infection and/or aspiration particularly in the setting of debris in the upper thoracic trachea. [] Impression: Sepsis/altered mental status and hypoxemic respiratory failure secondary to hospital acquired versus aspiration pneumonia with TAVARES Course & Med Decision Making: Course & Med Decision Making Pertinent Labs and Imaging studies reviewed. (See chart for details) 65-year-old female seen and evaluated by myself, patient reportedly febrile, alt ered, hypoxic, recent hospitalization for meningitis as well as peripheral neuropathy. Patient given 500 cc normal saline, blood cultures obtained, serum and urine studies ordered. Patient with leukocytosis as well as increased procalcitonin. ABG within normal limits, potassium 5.4. Patient given 5 units IV insulin regular. Creatinine 2.0, recent hemoglobin A1c 12.7. proBNP over 4000. Baseline creatinine probably around 1.5. Patient hemodynamically stable at this time. Patient given 1 dose of IV Zosyn in the emergency department. Awaiting urine studies. Recheck 1700: Urine studies within normal limits, patient given 1 g of vancomycin, patient given 0.4 mg of Narcan. Patient admitted to the service of Dr. Alvarez for further management of hypoxemic respiratory failure, altered mental status, hospital associated pneumonia. Patient admitted in stable condition. Dragon Disclaimer: Dragon Disclaimer: This electronic medical record was generated, in whole or in part, using a voice recognition dictation system. Departure Departure Referrals: NO PCP (PCP) DION SIMS MD September 04, 2021 16:18
[2021-09-04 16:20] LABS: BACTERIA,URINE FEW /HPF (0-FEW); HYALINE CASTS, URINE MODERATE /HPF; RBC,URINE 0 /HPF (0-2)
[2021-09-04 16:24] LABS: INFLUENZA A PATIENT NEGATIVE (NEGATIVE); INFLUENZA B PATIENT NEGATIVE (NEGATIVE)
[2021-09-04] MEDS ORDERED: VANCOMYCIN 1 GM in IV NORMAL SALINE 250ML 250 ML IV ONE (17:00)
[2021-09-04] MEDS ORDERED: NALOXONE 0.4 MG/ML VIAL. IV ONE (17:00)
[2021-09-04] MEDS ORDERED: VANCOMYCIN 2 GM in IV DEXTROSE 5% 500 ML IV ONE (17:30)
[2021-09-04] MEDS ORDERED: HALOPERIDOL LACTATE 5 MG/ML VIAL. IVP ONE (18:15)
[2021-09-04 19:45] VITALS: BP 106/54
[2021-09-04 23:00] VITALS: BP 104/58
[2021-09-05] MEDS ORDERED: ACETAMINOPHEN 650 MG SUPP.RECT. PR PRN
[2021-09-05] MEDS ORDERED: BISACODYL 10 MG SUPP.RECT. PR PRN
[2021-09-05] MEDS ORDERED: ONDANSETRON PF 4 MG/2 ML VIAL. IVP PRN
[2021-09-05 03:00] VITALS: BP 110/45
[2021-09-05 03:07] LABS: BASO # 0.1 x10^3/uL (0.0-0.2); BASO % 1 % (0-3); EOS % 0 % (0-3); HEMATOCRIT 27.5 % (36.0-47.0); HEMOGLOBIN 9.2 g/dL (12.0-15.5); LYMPH # 0.6 x10^3/uL (1.0-4.8); LYMPH % 6 % (24-48); MEAN CORPUSCULAR HEMOGLOBIN 31 pg (25-35); MEAN CORPUSCULAR HGB CONC 33 g/dL (31-37); MEAN CORPUSCULAR VOLUME 91 fL (79-100); MONO # 0.6 x10^3/uL (0.0-1.1); MONO % 6 % (0-9); NEUT # 8.5 x10^3/uL (1.8-7.7); NEUT % 86 % (31-73); PLATELET COUNT 187 x10^3/uL (140-400); RED CELL DISTRIBUTION WIDTH 15.2 % (11.5-14.5); WHITE BLOOD COUNT 9.8 x10^3/uL (4.0-11.0)
--- NOTE | 2021-09-05 03:30 | NUR ---
Spoke with ICU nurse regarding sepsis, no new recomendations at this time.
[2021-09-05 03:44] LABS: ALBUMIN 2.3 g/dL (3.4-5.0); ALBUMIN/GLOBULIN RATIO 0.7 (1.0-1.7); CALCIUM 8.1 mg/dL (8.5-10.1); CREATININE 1.9 mg/dL (0.6-1.0); GFR 26.6; POTASSIUM 5.2 mmol/L (3.5-5.1); TOTAL BILIRUBIN 0.4 mg/dL (0.2-1.0); TOTAL PROTEIN 5.8 g/dL (6.4-8.2)
--- NOTE | 2021-09-05 06:15 | NUR ---
Straight cathed patient and emptied 700 mL of urine from her bladder. Patient tolerated the procedure well.
[2021-09-05] MEDS ORDERED: OXYB5TAB10 PO (06:43)
[2021-09-05] MEDS ORDERED: CYCL10TA19 PO (06:43)
[2021-09-05] MEDS ORDERED: CALC0.25 PO (06:43)
[2021-09-05] MEDS ORDERED: METO2.5T PO (06:43)
[2021-09-05] MEDS ORDERED: LEVO125T5 PO (06:43)
[2021-09-05] MEDS ORDERED: MULT-245 PO (06:43)
[2021-09-05] MEDS ORDERED: CHOL5000 PO (06:43)
[2021-09-05] MEDS ORDERED: ASPI-630 PO (06:43)
[2021-09-05] MEDS ORDERED: MAGN400C PO (06:43)
[2021-09-05] MEDS ORDERED: ASCO100019 PO (06:43)
[2021-09-05] MEDS ORDERED: SENN8.6T11 PO (06:43)
[2021-09-05] MEDS ORDERED: INSU100V37 SQ (06:43)
[2021-09-05] MEDS ORDERED: ONDA4TAB12 PO (06:43)
[2021-09-05] MEDS ORDERED: NITR0.4T22 SL (06:43)
[2021-09-05] MEDS ORDERED: ACET325T21 PO (06:43)
[2021-09-05] MEDS ORDERED: INSU100V6 SQ (06:43)
[2021-09-05] MEDS ORDERED: HYDR4TAB PO (06:43)
[2021-09-05] MEDS ORDERED: TORS20TA2 PO ×2 (06:43)
[2021-09-05] MEDS ORDERED: DRON10CA5 PO (06:43)
[2021-09-05] MEDS ORDERED: PANT40TA77 PO (06:43)
[2021-09-05] MEDS ORDERED: FENT1PAT15 TD (06:43)
[2021-09-05] MEDS ORDERED: NYST15PO9 TP (06:43)
[2021-09-05] MEDS ORDERED: FERR325T14 PO (06:43)
[2021-09-05] MEDS ORDERED: GLUC3SPR NS (06:43)
[2021-09-05 07:00] VITALS: BP 123/55
--- NOTE | 2021-09-05 07:28 | EKG ---
[facility] [address] [place] [address] Test Date: 2021-09-04 Test Time: 13:59:04 Pat Name: ISABELL BARRON Department: Room: 538 1 Gender: F Counter Installer: DIONY : 1955 Requested By: DION Cummings Number: [id number] Reading MD: Curtis Silva Measurements Intervals [place] Rate: 97 P: 29 NV: 178 QRS: 4 QRSD: 72 T: 41 QT: 334 QTc: 428 Interpretive Statements SINUS RHYTHM QRS(T) CONTOUR ABNORMALITY CONSISTENT WITH POSSIBLE OLD ANTEROSEPTAL INFARCT Electronically Signed On 09-07-2021 10:32:13 CDT by Curtis Silva
[2021-09-05] MEDS ORDERED: DEXTROSE 50% 25 GM / 50ML DISP.SYRIN. IV PRN (10:45)
[2021-09-05 11:00] VITALS: BP 132/63
[2021-09-05] MEDS: INSULIN LISPRO 300 UNITS/3 ML VIAL. SQ SCH ×2 (12:00→17:00)
[2021-09-05] MEDS ORDERED: PIPERACILLIN/TAZOBACTAM 2.25 GM in IV NORMAL SALINE 50ML 50 ML IV SCH (12:00)
[2021-09-05] MEDS: PIPERACILLIN/TAZOBACTAM 3.375 GM in IV NORMAL SALINE 50ML 50 ML IV SCH ×2 (12:30→17:43)
[2021-09-05] MEDS: IV DEXTROSE 5 %-0.45 % NACL 1,000 ML IV SCH (12:31)
--- NOTE | 2021-09-05 13:37 | NUR ---
SS following for discharge planning. SS reviewed pt chart and discussed with pt RN. Pt is from home with family and is currently requiring oxygen at three liters nasal canula. Pt has home oxygen. Wound care consulted. COVID19 negative. Pt on IV Zosyn. Pt current on services with [facility], ; fax [phone]. Per RN, pt mental status altered. SS will continue to follow for discharge planning.
--- NOTE | 2021-09-05 14:06 | NUR ---
WOUND CARE: Patient seen per wound care consult. There are no open wounds at this time. Patient had stool in brief, patient cleansed and brief changed. Patient repositioned in bed and bilateral heels floated. Wound care will sign off at this time. Bed lowered and call light in reach.
[2021-09-05] MEDS: VANCOMYCIN PER PHARMACY MC PRN (14:25)
--- NOTE | 2021-09-05 14:27 | NUR ---
Pharmacy Vancomycin Dosing Note S:Consulted to monitor and dose vancomycin started 09/04/21. O:ISABELL BARRON is a 65 year old F with HCAP . Height: 5 feet, 0 inches Weight: 87.0 kg Sullivan Body Weight: 45.50 Adjusted Body Weight: 62.10 Dosing Weight: Actual Other Antibiotics: ZOSYN LABS: Last BUN: Last Creatinine: 1.9 Creatinine Clearance: 29 mL/min Last WBC: Last Procalcitonin: Tmax (past 24 hours): 101 Microbiology: I/O: Drug Levels: Last level: on at Last dose given 09/04/21 at 1730 Vancomycin Dosing: Loading Dose: 2000 mg x1 Dosing Weight: Actual Target Trough: 15-20 A: Based on: WEIGHT AND RENAL FUNCTION, 2GM IV VANCOMYCIN BOLUS ON 09/04 P: 1. START Vancomycin 1250 mg IV q24h TONIGHT 2. Follow up Trough level on 09/06/21 at 1730 3. Pharmacy will continue to monitor, follow and adjust therapy as needed. JASPAL DE LA TORRE [facility], 09/05/21 [id number]
[2021-09-05 15:00] VITALS: BP 164/69
--- NOTE | 2021-09-05 15:12 | HP ---
DATE OF SERVICE: 09/05/2021 ADMIT DATE: 09/04/2021 HISTORY OF PRESENT ILLNESS: The patient is a 65-year-old female patient who was brought to the Emergency Room with altered mental status. Reportedly, the family noted the patient to be normal yesterday. She was fairly unresponsive this morning. She has apparently been vomiting in the early afternoon and the daughter called EMS as she was found to be hypoxic with emesis all over her face and chest and her night gown. She was placed on nasal cannula and that brought her oxygen saturation to 90%. The patient is not on oxygen at home. She was alert. When on questioning her, she was able to answer simple questions. She is altered and falls asleep quite regularly . She stated that her back hurts that was the only complaint that she offered. EMS noted her to be afebrile with temperature of 101 Fahrenheit. The patient was recently hospitalized for meningitis and hospitalized also for neuropathy and unsteady gait. She was extensively investigated in the Emergency Room and on arrival to the Emergency Room, she was febrile with a temperature of 101.7, her lab work showed that her white cell count was 12.4. However, her blood gases were normal on FiO2 of 100%. Her chemistry showed that she has probably slightly impaired kidney function. Her urinalysis was unremarkable. Toxic screen obviously was positive for opiates. The CT scan of the chest, abdomen and pelvis showed that the patient has dense consolidation of the upper right lobe and left lower lobes and mild consolidation of the right mid and left upper lobe. Finding that may represent multifocal infection and/or aspiration, particularly the in the upper thoracic trachea. There is no acute finding in the abdomen and pelvis and the patient was admitted with probably aspiration pneumonia, started on IV antibiotic in the form of vancomycin and Zosyn as well as IV fluid. PAST MEDICAL HISTORY: Significant for coronary artery disease, status post PCI with stent deployment, hyperlipidemia, hypertension, myocardial infarction, chronic kidney disease. She has also diabetic gastroparesis and stage 4 kidney disease. She was admitted recently for aseptic meningitis as well as ataxia due to diabetic polyneuropathy. PAST SURGICAL HISTORY: Significant for cholecystectomy, , and drainage of pericardial abscess. She also had PCI with stent deployment. FAMILY HISTORY: Unobtainable. SOCIAL HISTORY: She apparently used to live in [place] with one of her sons and has moved recently to live with her daughter. She continues to smoke. Does not drink alcohol or use recreational drugs. She continues to smoke marijuana, although the last time she used any marijuana was a few weeks ago. She is on Dilaudid in liquid form. She also has a fentanyl patch, but according to her daughter, she has not had any of these in the last 3 weeks. REVIEW OF SYSTEMS: As per history of present illness. PHYSICAL EXAMINATION: GENERAL: On arrival to the Emergency Room, she was encephalopathic, pale, not jaundiced, cyanosed, no lymphadenopathy, no thyromegaly, no jugular venous distention. No lower limb edema. VITAL SIGNS: Her heart rate was 98, blood pressure is 142/117, temperature was 99.9, went up to 101.8, respiratory rate 20, and oxygen saturation was 98% on 15 liters by nasal cannula. HEAD, EYES, EARS, NOSE, AND THROAT: Normocephalic, atraumatic. NECK: Supple. HEART: Showed normal first and second heart sounds. No gallop, rub or murmur. CHEST: Clear to auscultation. I could not appreciate any crepitation or rhonchi anteriorly. ABDOMEN: Distended, soft, nontender. NEUROLOGIC: She was encephalopathic. She does open her eyes and responds, but drifts back to sleep. All her cranial nerves are intact. She moves extremities without difficulty. There is no evidence of neck rigidity at this time. LABORATORY DATA: Her lab work on arrival showed a white cell count 12.4, hemoglobin 10.4, hematocrit 31, MCV 91, and platelet count 268,000. Her chemistry showed a serum sodium 136, potassium 5.4, chloride 98, bicarbonate 28, anion gap of 10, BUN 41, creatinine 2, estimated GFR was 25 mL/minute. Her glucose was 201, lactic acid was 0.8. Total serum calcium was 8.6. Total bilirubin, AST, ALT, alkaline phosphatase were normal. CK was 213. Total protein 6.9, albumin 3, serum lipase was 22. Her prothrombin time, INR and APTT are normal. Urinalysis is essentially unremarkable and toxic screen was positive for opioids. Her influenza A and B were negative and coronavirus by rapid antigen testing was negative. CT scan of the head showed the white and white matter appears normal and symmetrical for the patient's age. There is no mass effect, extraaxial fluid collection, or hydrocephalus. There is no gross bleed. There is no focal loss of white-white matter distinction to suggest acute ischemia. CT scan of the chest, abdomen and pelvis showed that the patient has multifocal pneumonia with consolidation of the right upper, right lower, left lower lobes and mild consolidation of the right mid and left upper lobe. Finding may represent multifocal infection and/or aspiration, particularly the the upper thoracic trachea. No acute finding in the abdomen and pelvis. She does have mild wedging of the T5 vertebral body that may represent age indeterminate compression fracture. She has an infrarenal IVC filter. PLAN: My plan is to continue with IV antibiotic in the form of Zosyn and vancomycin. I will start her on IV fluid, as given that she has urine retention would probably need an indwelling Elliott catheter. I will consult the back tufter and perhaps the test center administrator to assist with management. RUBY/KIM/BALDEMAR DR: Geo TID: [id number]
[2021-09-05] MEDS: VANCOMYCIN 1.25 GM in IV NORMAL SALINE 250ML 250 ML IV SCH (18:00)
[2021-09-05 19:00] VITALS: BP 159/66
[2021-09-05 23:00] VITALS: BP 171/74
[2021-09-06] MEDS: PIPERACILLIN/TAZOBACTAM 3.375 GM in IV NORMAL SALINE 50ML 50 ML IV SCH ×4 (00:36→18:00)
[2021-09-06 03:00] VITALS: BP 165/81
[2021-09-06] MEDS ORDERED: ALBUTEROL SULFATE 2.5 MG/3 ML NEBU. NEB PRN (03:15)
--- NOTE | 2021-09-06 03:24 | RAD ---
XR CHEST 1V 09/06/2021 3:11 AM INDICATION: Shortness of air COMPARISON: 07/27/2021 TECHNIQUE: Portable frontal view of the chest is provided. FINDINGS: The cardiomediastinal silhouette is within normal limits. Significant increase in moderate perihilar mixed interstitial and alveolar airspace disease. There are no significant pleural effusions. No pneumothorax. No suspicious osseous abnormality. IMPRESSION: Moderate perihilar mixed interstitial and alveolar airspace disease as may be seen with m ultifocal pneumonia in the setting of ARDS versus diffuse pulmonary edema. Electronically signed by: Violetta Tomlin MD (09/06/2021 3:22 AM) RIANA
[2021-09-06] MEDS ORDERED: FUROSEMIDE 40 MG/4 ML VIAL. IVP ONE (03:30)
[2021-09-06] MEDS ORDERED: LORazepam 0.5 MG TABLET PO ONE (03:30)
[2021-09-06 03:36] LABS: HEMATOCRIT 33.7 % (36.0-47.0); HEMOGLOBIN 11.1 g/dL (12.0-15.5); RED BLOOD COUNT 3.67 x10^6/uL (3.50-5.40); RED CELL DISTRIBUTION WIDTH 15.1 % (11.5-14.5); WHITE BLOOD COUNT 8.1 x10^3/uL (4.0-11.0)
[2021-09-06] MEDS: IV DEXTROSE 5 %-0.45 % NACL 1,000 ML IV SCH ×2 (03:37→13:25)
[2021-09-06] MEDS: CARVEDILOL 12.5 MG TABLET. PO SCH ×3 (03:46→17:00)
[2021-09-06 03:58] LABS: ALBUMIN 2.5 g/dL (3.4-5.0); ALBUMIN/GLOBULIN RATIO 0.6 (1.0-1.7); CALCIUM 8.8 mg/dL (8.5-10.1); CREATININE 1.5 mg/dL (0.6-1.0); POTASSIUM 4.4 mmol/L (3.5-5.1); TOTAL BILIRUBIN 0.8 mg/dL (0.2-1.0); TOTAL PROTEIN 6.9 g/dL (6.4-8.2)
[2021-09-06 07:00] VITALS: BP 157/82
[2021-09-06] MEDS ORDERED: CARVEDILOL 12.5 MG TABLET. PO SCH (08:00)
[2021-09-06] MEDS: INSULIN LISPRO 300 UNITS/3 ML VIAL. SQ SCH ×3 (08:08→17:00)
--- NOTE | 2021-09-06 08:46 | PDOC ---
PULMONARY PROGRESS NOTES DATE: 09/06/21 TIME: 08:46 Vitals Vital Signs Date Time Temp Pulse Resp B/P (MAP) Pulse Ox O2 Delivery O2 Flow Rate FiO2 09/06/21 08:00 96 171/74 09/06/21 07:00 99.7 16 92 Nasal Cannula 3.0 99.7 Labs Laboratory Tests Test 09/04/21 13:45 09/04/21 14:20 09/04/21 15:14 09/04/21 15:58 O2 Saturation 97 % (92-99) Arterial Blood pH 7.41 (7.35-7.45) Arterial Blood pCO2 at Patient Temp 43 mmHg (35-46) Arterial Blood pO2 at Patient Temp 105 mmHg (65-108) Arterial Blood HCO3 26 mmol/L (21-28) Arterial Blood Base Excess 2 mmol/L (-3-3) FiO2 100 White Blood Count 12.4 x10^3/uL (4.0-11.0) Red Blood Count 3.42 x10^6/uL (3.50-5.40) Hemoglobin 10.4 g/dL (12.0-15.5) Hematocrit 31.1 % (36.0-47.0) Mean Corpuscular Volume 91 fL (79-100) Mean Corpuscular Hemoglobin 30 pg (25-35) Mean Corpuscular Hemoglobin Concent 33 g/dL (31-37) Red Cell Distribution Width 15.1 % (11.5-14.5) Platelet Count 268 x10^3/uL (140-400) Neutrophils (%) (Auto) 90 % (31-73) Lymphocytes (%) (Auto) 4 % (24-48) Monocytes (%) (Auto) 5 % (0-9) Eosinophils (%) (Auto) 0 % (0-3) Basophils (%) (Auto) 1 % (0-3) Neutrophils # (Auto) 11.1 x10^3/uL (1.8-7.7) Lymphocytes # (Auto) 0.5 x10^3/uL (1.0-4.8) Monocytes # (Auto) 0.6 x10^3/uL (0.0-1.1) Eosinophils # (Auto) 0.0 x10^3/uL (0.0-0.7) Basophils # (Auto) 0.1 x10^3/uL (0.0-0.2) Prothrombin Time 12.7 SEC (11.7-14.0) Prothromb Time International Ratio 1.0 (0.8-1.1) Activated Partial Thromboplast Time 26 SEC (24-38) Sodium Level 136 mmol/L (136-145) Potassium Level 5.4 mmol/L (3.5-5.1) Chloride Level 98 mmol/L (98-107) Carbon Dioxide Level 28 mmol/L (21-32) Anion Gap 10 (6-14) Blood Urea Nitrogen 41 mg/dL (7-20) Creatinine 2.0 mg/dL (0.6-1.0) Estimated GFR (Cockcroft-Gault) 25.1 BUN/Creatinine Ratio 21 (6-20) Glucose Level 201 mg/dL (70-99) Lactic Acid Level 0.8 mmol/L (0.4-2.0) Calcium Level 8.6 mg/dL (8.5-10.1) Total Bilirubin 0.3 mg/dL (0.2-1.0) Aspartate Amino Transf (AST/SGOT) 23 U/L (15-37) Alanine Aminotransferase (ALT/SGPT) 37 U/L (14-59) Alkaline Phosphatase 109 U/L (46-116) Creatine Kinase 213 U/L (26-192) Troponin I High Sensitivity 27 ng/L (4-50) WN-Zwj-O-Type Natriuretic Peptide 4427 pg/mL (0-124) Total Protein 6.9 g/dL (6.4-8.2) Albumin 3.0 g/dL (3.4-5.0) Albumin/Globulin Ratio 0.8 (1.0-1.7) Lipase 22 U/L (73-393) Procalcitonin 0.17 ng/mL (0.00-0.10) Ammonia 22 mcmol/L (11-34) Urine Collection Type U cath Urine Color (Auto) Light yellow Urine Turbidity Clear Urine pH (Auto) 5.5 (<5.0-8.0) Urine Specific [place] 1.016 (1.000-1.030) Urine Protein (Auto) 100 mg/dL (Negative) Urine Glucose (Auto)(UA) Negative mg/dL (Negative) Urine Ketones (Auto) Negative mg/dL (Negative) Urine Blood (Auto) Negative (Negative) Urine Nitrite Negative (Negative) Urine Bilirubin (Auto) Negative (Negative) Urine Urobilinogen (Auto) Normal mg/dL (Normal) Urine Leukocyte Esterase (Auto) Small (Negative) Urine RBC 0 /HPF (0-2) Urine WBC 5-10 /HPF (0-4) Urine Squamous Epithelial Cells Few /LPF Urine Bacteria Few /HPF (0-FEW) Urine Hyaline Casts Moderate /HPF Urine Mucus Slight /LPF Urine Opiates Screen Pos (NEG) Urine Methadone Screen Neg (NEG) Urine Barbiturates Neg (NEG) Urine Phencyclidine Screen Neg (NEG) Urine Amphetamine/Methamphetamine Neg (NEG) Urine Benzodiazepines Screen Neg (NEG) Urine Cocaine Screen Neg (NEG) Urine Cannabinoids Screen Neg (NEG) Urine Ethyl Alcohol Neg (NEG) Test 09/04/21 16:00 09/04/21 16:47 09/04/21 17:38 09/04/21 21:51 Influenza Type A Antigen Negative (NEGATIVE) Influenza Type B Antigen Negative (NEGATIVE) SARS-CoV-2 Antigen (Rapid) Negative (NEGATIVE) Glucose (Fingerstick) 119 mg/dL (70-99) 198 mg/dL (70-99) Lactic Acid Level 1.0 mmol/L (0.4-2.0) Test 09/05/21 03:00 09/05/21 07:09 09/05/21 11:49 09/05/21 16:45 White Blood Count 9.8 x10^3/uL (4.0-11.0) Red Blood Count 3.00 x10^6/uL (3.50-5.40) Hemoglobin 9.2 g/dL (12.0-15.5) Hematocrit 27.5 % (36.0-47.0) Mean Corpuscular Volume 91 fL (79-100) Mean Corpuscular Hemoglobin 31 pg (25-35) Mean Corpuscular Hemoglobin Concent 33 g/dL (31-37) Red Cell Distribution Width 15.2 % (11.5-14.5) Platelet Count 187 x10^3/uL (140-400) Neutrophils (%) (Auto) 86 % (31-73) Lymphocytes (%) (Auto) 6 % (24-48) Monocytes (%) (Auto) 6 % (0-9) Eosinophils (%) (Auto) 0 % (0-3) Basophils (%) (Auto) 1 % (0-3) Neutrophils # (Auto) 8.5 x10^3/uL (1.8-7.7) Lymphocytes # (Auto) 0.6 x10^3/uL (1.0-4.8) Monocytes # (Auto) 0.6 x10^3/uL (0.0-1.1) Eosinophils # (Auto) 0.0 x10^3/uL (0.0-0.7) Basophils # (Auto) 0.1 x10^3/uL (0.0-0.2) Sodium Level 135 mmol/L (136-145) Potassium Level 5.2 mmol/L (3.5-5.1) Chloride Level 100 mmol/L (98-107) Carbon Dioxide Level 27 mmol/L (21-32) Anion Gap 8 (6-14) Blood Urea Nitrogen 43 mg/dL (7-20) Creatinine 1.9 mg/dL (0.6-1.0) Estimated GFR (Cockcroft-Gault) 26.6 BUN/Creatinine Ratio 23 (6-20) Glucose Level 185 mg/dL (70-99) Calcium Level 8.1 mg/dL (8.5-10.1) Total Bilirubin 0.4 mg/dL (0.2-1.0) Aspartate Amino Transf (AST/SGOT) 41 U/L (15-37) Alanine Aminotransferase (ALT/SGPT) 40 U/L (14-59) Alkaline Phosphatase 104 U/L (46-116) Total Protein 5.8 g/dL (6.4-8.2) Albumin 2.3 g/dL (3.4-5.0) Albumin/Globulin Ratio 0.7 (1.0-1.7) Glucose (Fingerstick) 190 mg/dL (70-99) 173 mg/dL (70-99) 229 mg/dL (70-99) Test 09/05/21 19:52 09/06/21 03:25 09/06/21 07:15 Glucose (Fingerstick) 200 mg/dL (70-99) 316 mg/dL (70-99) White Blood Count 8.1 x10^3/uL (4.0-11.0) Red Blood Count 3.67 x10^6/uL (3.50-5.40) Hemoglobin 11.1 g/dL (12.0-15.5) Hematocrit 33.7 % (36.0-47.0) Mean Corpuscular Volume 92 fL (79-100) Mean Corpuscular Hemoglobin 30 pg (25-35) Mean Corpuscular Hemoglobin Concent 33 g/dL (31-37) Red Cell Distribution Width 15.1 % (11.5-14.5) Platelet Count 264 x10^3/uL (140-400) Sodium Level 136 mmol/L (136-145) Potassium Level 4.4 mmol/L (3.5-5.1) Chloride Level 100 mmol/L (98-107) Carbon Dioxide Level 25 mmol/L (21-32) Anion Gap 11 (6-14) Blood Urea Nitrogen 32 mg/dL (7-20) Creatinine 1.5 mg/dL (0.6-1.0) Estimated GFR (Cockcroft-Gault) 35.0 BUN/Creatinine Ratio 21 (6-20) Glucose Level 297 mg/dL (70-99) Calcium Level 8.8 mg/dL (8.5-10.1) Total Bilirubin 0.8 mg/dL (0.2-1.0) Aspartate Amino Transf (AST/SGOT) 24 U/L (15-37) Alanine Aminotransferase (ALT/SGPT) 32 U/L (14-59) Alkaline Phosphatase 141 U/L (46-116) Total Protein 6.9 g/dL (6.4-8.2) Albumin 2.5 g/dL (3.4-5.0) Albumin/Globulin Ratio 0.6 (1.0-1.7) Laboratory Tests Test 09/05/21 11:49 09/05/21 16:45 09/05/21 19:52 09/06/21 03:25 Glucose (Fingerstick) 173 mg/dL (70-99) 229 mg/dL (70-99) 200 mg/dL (70-99) White Blood Count 8.1 x10^3/uL (4.0-11.0) Red Blood Count 3.67 x10^6/uL (3.50-5.40) Hemoglobin 11.1 g/dL (12.0-15.5) Hematocrit 33.7 % (36.0-47.0) Mean Corpuscular Volume 92 fL (79-100) Mean Corpuscular Hemoglobin 30 pg (25-35) Mean Corpuscular Hemoglobin Concent 33 g/dL (31-37) Red Cell Distribution Width 15.1 % (11.5-14.5) Platelet Count 264 x10^3/uL (140-400) Sodium Level 136 mmol/L (136-145) Potassium Level 4.4 mmol/L (3.5-5.1) Chloride Level 100 mmol/L (98-107) Carbon Dioxide Level 25 mmol/L (21-32) Anion Gap 11 (6-14) Blood Urea Nitrogen 32 mg/dL (7-20) Creatinine 1.5 mg/dL (0.6-1.0) Estimated GFR (Cockcroft-Gault) 35.0 BUN/Creatinine Ratio 21 (6-20) Glucose Level 297 mg/dL (70-99) Calcium Level 8.8 mg/dL (8.5-10.1) Total Bilirubin 0.8 mg/dL (0.2-1.0) Aspartate Amino Transf (AST/SGOT) 24 U/L (15-37) Alanine Aminotransferase (ALT/SGPT) 32 U/L (14-59) Alkaline Phosphatase 141 U/L (46-116) Total Protein 6.9 g/dL (6.4-8.2) Albumin 2.5 g/dL (3.4-5.0) Albumin/Globulin Ratio 0.6 (1.0-1.7) Test 09/06/21 07:15 Glucose (Fingerstick) 316 mg/dL (70-99) Medications Active Scripts Medications Dose Route/Sig Max Daily Dose Days Date Category Dose Instructions Vitamin D3 (Vitamin D) 125 Mcg Capsule 1,000 Units PO DAILY 09/05/21 Reported 5,000 UNITS = 125 MCG Vitamin C (Ascorbic Acid) 1,000 Mg Tablet 1,000 Mg PO DAILY 09/05/21 Reported Tresiba (Insulin Degludec) 100 Unit/1 Ml Vial 34 Unit SQ DAILY 09/05/21 Reported Torsemide 20 Mg Tablet 20 Mg PO HS 09/05/21 Reported Torsemide 20 Mg Tablet 40 Mg PO DAILY 09/05/21 Reported Senna Laxative (Sennosides) 8.6 Mg Tablet 4 Tab PO HS 09/05/21 Reported Pantoprazole Sodium (Pantoprazole Sodium) 40 Mg Tablet.dr 40 Mg PO DAILYAC 09/05/21 Reported Oxybutynin Chloride 5 Mg Tablet 5 Mg PO DAILY 09/05/21 Reported Cyclobenzaprine Hcl 10 Mg Tablet 10 Mg PO PRN TID PRN 09/05/21 Reported Dronabinol 10 Mg Capsule 10 Mg PO BID 09/05/21 Reported Ondansetron Odt (Ondansetron) 4 Mg Tab.rapdis 4 Mg PO BID PRN 09/05/21 Reported Nystatin 15 Gm Powder 15 Gm TP PRN BID PRN 09/05/21 Reported NITROGLYCERIN SubLingual (Nitroglycerin) 0.4 Mg Tab.subl 0.4 Mg SL PRN Q5MIN PRN 09/05/21 Reported Multi Vitamin Daily (Multivitamin) 1 Each Tablet 1 Each PO DAILY 09/05/21 Reported Metolazone 2.5 Mg Tablet 2.5 Mg PO QMWF 09/05/21 Reported Magnesium (Magnesium Oxide) 400 Mg Capsule 400 Mg PO HS 09/05/21 Reported Levothyroxine Sodium 125 Mcg Tablet 125 Mcg PO DAILYAC 09/05/21 Reported Hydromorphone Hcl 4 Mg Tablet 3 Mg PO PRN Q4HRS PRN 09/05/21 Reported Ferrous Sulfate 325 Mg Tablet 65 Mg PO QMWF 09/05/21 Reported Humalog (Insulin Lispro) 100 Unit/1 Ml Vial 100 Unit SQ TIDWMEALS 09/05/21 Reported Acetaminophen 325 Mg Tablet 325 Mg PO PRN Q6HRS PRN 09/05/21 Reported Calcitriol 0.25 Mcg Capsule 0.25 Mcg PO QMWF 09/05/21 Reported Baqsimi (Glucagon) 3 Mg Verdon 3 Mg NS PRN PRN 09/05/21 Reported FENTANYL 25mcg/hr (Fentanyl) 1 Each Patch.td72 37.5 Mcg TD Q72H 09/05/21 Reported Aspirin 81 Mg Tab.chew 81 Mg PO DAILY 09/05/21 Reported Isosorbide Mononitrate Er (Isosorbide Mononitrate) 30 Mg Tab.er.24h 60 Mg PO DAILY 07/25/21 Reported Hydralazine Hcl 10 Mg Tablet 25 Mg PO BID 07/25/21 Reported Gabapentin 600 Mg Tablet 600 Mg PO BID 07/25/21 Reported Carvedilol 25 Mg Tablet 12.5 Mg PO BIDWMEALS 07/25/21 Reported Atorvastatin Calcium 40 Mg Tablet 80 Mg PO HS 07/25/21 Reported Allopurinol 100 Mg Tablet 1 Tab PO DAILY 07/25/21 Reported Folic Acid 0.4 Mg Tablet 0.4 Mg PO DAILY 07/25/21 Reported Cymbalta (Duloxetine Hcl) 20 Mg Capsule.dr 60 Mg PO DAILY 07/25/21 Reported Colace (Docusate Sodium) 100 Mg Capsule 2 Cap PO DAILY 30 07/25/21 Reported Vitamin B-12 (Cyanocobalamin (Vitamin B-12)) 500 Mcg Tab.subl 500 Mcg SL DAILY 07/25/21 Reported Clopidogrel (Clopidogrel Bisulfate) 75 Mg Tablet 1 Tab PO DAILY 07/25/21 Reported Impression . Full consult dictated Respiratory failure multifactorial aspiration pneumonia Metabolic toxic encephalopathy See orders KAYLA ROME MD September 06, 2021 08:46
[2021-09-06 10:36] VITALS: BP 151/72
--- NOTE | 2021-09-06 11:49 | CONS ---
DATE OF CONSULTATION: 09/06/2021 ATTENDING PHYSICIAN: oTmasa Alvarez MD. CONSULTING PHYSICIAN: Jeovanny Herrera MD. REASON FOR CONSULTATION: The patient is seen in pulmonary consultation at the request of Dr. Alvarez for abnormal CT chest revealing right upper lobe, right lower lobe consolidation, left lower lobe consolidation. HISTORY OF PRESENT ILLNESS: The patient is a 65-year-old that presented to the Emergency Room with altered mental status. This morning when I was examining the patient, she is more awake, alert. She states that she does not recall Friday yesterday, she recalls Friday. She does not really know why she came in. The family found her unresponsive. She had 1 episode of emesis in the afternoon. EMS was summoned. They found saturations to be 64% on room air, placed on oxygen supplementation and transferred her to the Emergency Department. In the Emergency Department, she had a fever of 101. She underwent a CT of the chest, which revealed multifocal pneumonia with a right upper lobe, right lower lobe consolidation and left lower lobe consolidation. The patient does have a history of diabetic gastroparesis. I suspect she was aspirated yesterday. She is currently on vancomycin and Zosyn. I was asked to see her in consultation for further management. PAST MEDICAL HISTORY: Significant for chronic pain. She is on chronic Dilaudid use. She recently moved here from [place] approximately 6-8 months ago to be closer to family. She does have a history of coronary artery disease with previous PCI and stent deployment, hyperlipidemia, hypertension, previous myocardial infarction. There is also a history of chronic kidney disease, diabetic gastroparesis. She was recently admitted here with aseptic meningitis as well as ataxia due to diabetic polyneuropathy. PAST SURGICAL HISTORY: Previous cholecystectomy, . She has had previous drainage of a pericardial abscess. She has also had previous PCI with stent deployment. FAMILY HISTORY: Unremarkable. SOCIAL HISTORY: She recently moved here to be closer to her son from [facility]. She continues to smoke. There is a prior history of marijuana use. She is using fentanyl patch on a regular basis. REVIEW OF SYSTEMS: As indicated above. Otherwise, a 10-point system was reviewed and negative. ALLERGIES: MORPHINE, OXYCODONE AND PREGABALIN. CURRENT MEDICATIONS: List was reviewed. PHYSICAL EXAMINATION: VITAL SIGNS: Since admission, she has had a T-max of 101.9 two days ago. GENERAL: Otherwise, she is currently awake, alert, following commands. O2 saturation greater than 92% on 3 liters. HEENT: Eyes: The sclerae were nonicteric. NECK: Jugular venous distention was not elevated. No lymphadenopathy. CHEST: Full expansion. LUNGS: Bilateral rhonchi. No wheezes. CARDIOVASCULAR: Regular rate and rhythm with S1, S2, no S3. ABDOMEN: Soft, nontender, nondistended. EXTREMITIES: No clubbing, cyanosis or edema. NEUROLOGIC: The patient was awake, alert, following commands. A detailed neuro exam was not performed. LABORATORY DATA: Reviewed. Arterial blood gas upon admission revealed a pH of 7.41, PaCO2 of 43, pO2 of 105. White count was 12.4, hemoglobin and hematocrit were noted. BUN and creatinine were elevated. INR was 1.0. Urine drug screen was positive for opiates. Serology for influenza and SARS-CoV-2 was negative. IMPRESSION: 1. Acute hypoxemic respiratory failure, multifactorial. 2. Aspiration pneumonia. 3. Abnormal CT compatible with aspiration pneumonia. 4. Gastroparesis. 5. Opiate abuse. 6. Hyperlipidemia. 7. Hypertension. 8. Coronary artery disease with previous myocardial infarction and PCI. 9. History of recent admission for aseptic meningitis. 10. Leukocytosis. 11. Positive drug screen. PLAN: 1. The patient has improved since yesterday, continue current empiric antibiotics. 2. Follow up on blood culture so far blood cultures revealed no growth. Urine culture revealed no growth. 3. Oxygen supplementation. 4. DVT prophylaxis. 5. Advance diet. 6. Continue home meds. 7. Will defer opiate management to Dr. Alvarez. 8. Check MRSA screen. 9. Procalcitonin. I do appreciate the privilege in sharing in the patient's care. SHARON/KIM TOMLINSON: Nick TID: [id number]
--- NOTE | 2021-09-06 12:08 | PN ---
DATE: 09/06/2021 SUBJECTIVE: The patient apparently was markedly tachypneic, tachycardic this morning, so I discontinued the IV fluid and was given 40 mg of IV Lasix. Her lab works were actually mostly unremarkable and her troponin was only 27. Apparently, blood gases could not be done. Her chest x-ray done this morning showed that moderate perihilar mixed interstitial and alveolar airspace disease, may be seen with multifocal pneumonia in the setting of ARDS versus diffuse pulmonary edema. PHYSICAL EXAMINATION: GENERAL: When I saw her this morning, she was resting, slightly propped up in bed comfortably, in no apparent respiratory distress. She was pale, not jaundiced, cyanosed, no lymphadenopathy, no thyromegaly, no jugular venous distention. No lower limb edema. VITAL SIGNS: Her heart rate was 93, blood pressure was 151/72, temperature was 99.6, respiratory rate was 18 and oxygen saturation was 96% on 3 liters of oxygen. HEAD, EYES, EARS, NOSE, AND THROAT: Normocephalic, atraumatic. NECK: Supple. HEART: Showed normal first and second heart sounds. No gallop, rub or murmur. CHEST: Clear to auscultation, no crepitation or rhonchi. ABDOMEN: Distended, soft, nontender. NEUROLOGIC: She is definitely more awake, alert, responding appropriately. Cranial nerves intact. She moves extremities without difficulty. Her intake over the last 24 hours was 550, output was 700. LABORATORY DATA: As of this morning, her white cell count is down to 8100, hemoglobin 11, hematocrit 33, MCV 92 and platelet count 264,000. Her chemistry showed a serum sodium 136, potassium 4.4, chloride 100, bicarbonate 25, anion gap of 11, BUN 32, creatinine 1.5. Estimated GFR was 35 mL per minute. Her glucose 297, calcium was 8.8. Total bilirubin, AST, ALT, alkaline phosphatase were normal. Total protein 6.9, albumin was 2.5. ASSESSMENT: 1. Acute hypoxic respiratory failure, likely due to aspiration pneumonia as well as acute pulmonary edema. 2. Aspiration pneumonia. 3. Narcotic addiction. 4. Other problems include: A. Coronary artery disease status post PCI and stent deployment. B. Hyperlipidemia. C. Hypertension. D. Myocardial infarction. E. Acute on chronic kidney injury. F. Type 2 diabetes mellitus, diabetic gastroparesis. PLAN: To continue with IV antibiotic in the form of Zosyn and vancomycin. I did consult the speech therapist to evaluate her swallowing and if she is safe, we will start her on a regular diet. Meanwhile, I have consulted Dr. Herrera to assist with her management and once she is able to swallow, we will reconcile oral medication. OCHOA DR: Geo TID: [id number]
--- NOTE | 2021-09-06 13:29 | NUR ---
SS following up with discharge planning. SS reviewed pt chart and discussed with pt RN. Pt is currently requiring oxygen at three liters nasal canula. Pt has home oxygen. Pulmonology consulted. COVID19 negative. Pt on IV Zosyn and IV Vancomycin. Pt current on services with [facility], ; fax [phone]. ST following. NPO. SS will continue to follow for discharge planning.
[2021-09-06 15:00] VITALS: BP 149/70
[2021-09-06 18:33] LABS: VANC TR 18.1 mcg/mL (10.0-20.0)
[2021-09-06 19:00] VITALS: BP 148/61
[2021-09-06] MEDS: VANCOMYCIN PER PHARMACY MC PRN (19:16)
[2021-09-06] MEDS: VANCOMYCIN 1.25 GM in IV NORMAL SALINE 250ML 250 ML IV SCH (19:16)
--- NOTE | 2021-09-06 19:19 | NUR ---
Pharmacy Vancomycin Dosing Note S: Consulted to monitor and dose vancomycin started 09/04/21. O: ISABELL BARRON is a 65 year old F with HCAP Other Antibiotics: ZOSYN LABS: Last BUN: 32 Last Creatinine: 1.5 Creatinine Clearance: 29 mL/min Last WBC: 8.1 Tmax (past 24 hours): 99.7 Last Trough level: 18.1 on 09/06/21 at 1735 Last dose given 09/05/21 at 1800 Vancomycin Dosing: Dosing Weight: Actual Target Trough: 15-20 A: Based on: THERAPEUTIC TROUGH P: 1. Continue Vancomycin 1250 mg IV q24h 2. Follow up Trough level on 09/09/21 at 1730 3. Pharmacy will continue to monitor, follow and adjust therapy as needed. [facility], 09/06/21 [id number]
[2021-09-06] MEDS: LACTOBACILLUS RHAMNOSUS GG 1 CAPSULE. PO SCH ×2 (21:00→21:53)
[2021-09-06 23:00] VITALS: BP 157/70
[2021-09-07] MEDS: PIPERACILLIN/TAZOBACTAM 3.375 GM in IV NORMAL SALINE 50ML 50 ML IV SCH ×4 (00:09→18:42)
[2021-09-07] MEDS: IV DEXTROSE 5 %-0.45 % NACL 1,000 ML IV SCH (02:45)
[2021-09-07 03:00] VITALS: BP 159/76
[2021-09-07 07:00] VITALS: BP 180/89
[2021-09-07 07:06] LABS: CALCIUM 8.1 mg/dL (8.5-10.1); CREATININE 1.3 mg/dL (0.6-1.0); GFR 41.2; POTASSIUM 4.4 mmol/L (3.5-5.1)
[2021-09-07] MEDS: INSULIN LISPRO 300 UNITS/3 ML VIAL. SQ SCH ×4 (08:00→17:43)
[2021-09-07] MEDS: CARVEDILOL 12.5 MG TABLET. PO SCH ×2 (08:00→17:40)
--- NOTE | 2021-09-07 08:57 | PDOC ---
PULMONARY PROGRESS NOTES DATE: 09/07/21 TIME: 08:57 Subjective Patient feels better, somewhat less short of breath Vitals Vital Signs Date Time Temp Pulse Resp B/P (MAP) Pulse Ox O2 Delivery O2 Flow Rate FiO2 09/07/21 07:00 98.6 95 18 180/89 (119) 94 Nasal Cannula 3.0 98.6 ROS: No Nausea, No Chest Pain, No Abdominal Pain, No Increase Cough General: Alert Lungs: Crackles Cardiovascular: S1, S2 Abdomen: Soft Neuro Exam: Alert Extremities: No Edema Labs Laboratory Tests Test 09/05/21 11:49 09/05/21 16:45 09/05/21 19:52 09/06/21 03:25 Glucose (Fingerstick) 173 mg/dL (70-99) 229 mg/dL (70-99) 200 mg/dL (70-99) White Blood Count 8.1 x10^3/uL (4.0-11.0) Red Blood Count 3.67 x10^6/uL (3.50-5.40) Hemoglobin 11.1 g/dL (12.0-15.5) Hematocrit 33.7 % (36.0-47.0) Mean Corpuscular Volume 92 fL (79-100) Mean Corpuscular Hemoglobin 30 pg (25-35) Mean Corpuscular Hemoglobin Concent 33 g/dL (31-37) Red Cell Distribution Width 15.1 % (11.5-14.5) Platelet Count 264 x10^3/uL (140-400) Sodium Level 136 mmol/L (136-145) Potassium Level 4.4 mmol/L (3.5-5.1) Chloride Level 100 mmol/L (98-107) Carbon Dioxide Level 25 mmol/L (21-32) Anion Gap 11 (6-14) Blood Urea Nitrogen 32 mg/dL (7-20) Creatinine 1.5 mg/dL (0.6-1.0) Estimated GFR (Cockcroft-Gault) 35.0 BUN/Creatinine Ratio 21 (6-20) Glucose Level 297 mg/dL (70-99) Calcium Level 8.8 mg/dL (8.5-10.1) Total Bilirubin 0.8 mg/dL (0.2-1.0) Aspartate Amino Transf (AST/SGOT) 24 U/L (15-37) Alanine Aminotransferase (ALT/SGPT) 32 U/L (14-59) Alkaline Phosphatase 141 U/L (46-116) Total Protein 6.9 g/dL (6.4-8.2) Albumin 2.5 g/dL (3.4-5.0) Albumin/Globulin Ratio 0.6 (1.0-1.7) Procalcitonin 1.78 ng/mL (0.00-0.10) Test 09/06/21 07:15 09/06/21 12:02 09/06/21 16:57 09/06/21 17:35 Glucose (Fingerstick) 316 mg/dL (70-99) 258 mg/dL (70-99) 276 mg/dL (70-99) Vancomycin Level Trough 18.1 mcg/mL (10.0-20.0) Vancomycin Last Dose Date 09/05/21 Vancomycin Last Dose Time 1800 Test 09/06/21 19:44 09/07/21 05:30 09/07/21 07:50 Glucose (Fingerstick) 254 mg/dL (70-99) 328 mg/dL (70-99) Sodium Level 140 mmol/L (136-145) Potassium Level 4.4 mmol/L (3.5-5.1) Chloride Level 104 mmol/L (98-107) Carbon Dioxide Level 24 mmol/L (21-32) Anion Gap 12 (6-14) Blood Urea Nitrogen 26 mg/dL (7-20) Creatinine 1.3 mg/dL (0.6-1.0) Estimated GFR (Cockcroft-Gault) 41.2 Glucose Level 299 mg/dL (70-99) Calcium Level 8.1 mg/dL (8.5-10.1) Laboratory Tests Test 09/06/21 12:02 09/06/21 16:57 09/06/21 17:35 09/06/21 19:44 Glucose (Fingerstick) 258 mg/dL (70-99) 276 mg/dL (70-99) 254 mg/dL (70-99) Vancomycin Level Trough 18.1 mcg/mL (10.0-20.0) Vancomycin Last Dose Date 09/05/21 Vancomycin Last Dose Time 1800 Test 09/07/21 05:30 09/07/21 07:50 Sodium Level 140 mmol/L (136-145) Potassium Level 4.4 mmol/L (3.5-5.1) Chloride Level 104 mmol/L (98-107) Carbon Dioxide Level 24 mmol/L (21-32) Anion Gap 12 (6-14) Blood Urea Nitrogen 26 mg/dL (7-20) Creatinine 1.3 mg/dL (0.6-1.0) Estimated GFR (Cockcroft-Gault) 41.2 Glucose Level 299 mg/dL (70-99) Calcium Level 8.1 mg/dL (8.5-10.1) Glucose (Fingerstick) 328 mg/dL (70-99) Medications Active Scripts Medications Dose Route/Sig Max Daily Dose Days Date Category Dose Instructions Vitamin D3 (Vitamin D) 125 Mcg Capsule 1,000 Units PO DAILY 09/05/21 Reported 5,000 UNITS = 125 MCG Vitamin C (Ascorbic Acid) 1,000 Mg Tablet 1,000 Mg PO DAILY 09/05/21 Reported Tresiba (Insulin Degludec) 100 Unit/1 Ml Vial 34 Unit SQ DAILY 09/05/21 Reported Torsemide 20 Mg Tablet 20 Mg PO HS 09/05/21 Reported Torsemide 20 Mg Tablet 40 Mg PO DAILY 09/05/21 Reported Senna Laxative (Sennosides) 8.6 Mg Tablet 4 Tab PO HS 09/05/21 Reported Pantoprazole Sodium (Pantoprazole Sodium) 40 Mg Tablet.dr 40 Mg PO DAILYAC 09/05/21 Reported Oxybutynin Chloride 5 Mg Tablet 5 Mg PO DAILY 09/05/21 Reported Cyclobenzaprine Hcl 10 Mg Tablet 10 Mg PO PRN TID PRN 09/05/21 Reported Dronabinol 10 Mg Capsule 10 Mg PO BID 09/05/21 Reported Ondansetron Odt (Ondansetron) 4 Mg Tab.rapdis 4 Mg PO BID PRN 09/05/21 Reported Nystatin 15 Gm Powder 15 Gm TP PRN BID PRN 09/05/21 Reported NITROGLYCERIN SubLingual (Nitroglycerin) 0.4 Mg Tab.subl 0.4 Mg SL PRN Q5MIN PRN 09/05/21 Reported Multi Vitamin Daily (Multivitamin) 1 Each Tablet 1 Each PO DAILY 09/05/21 Reported Metolazone 2.5 Mg Tablet 2.5 Mg PO QMWF 09/05/21 Reported Magnesium (Magnesium Oxide) 400 Mg Capsule 400 Mg PO HS 09/05/21 Reported Levothyroxine Sodium 125 Mcg Tablet 125 Mcg PO DAILYAC 09/05/21 Reported Hydromorphone Hcl 4 Mg Tablet 3 Mg PO PRN Q4HRS PRN 09/05/21 Reported Ferrous Sulfate 325 Mg Tablet 65 Mg PO QMWF 09/05/21 Reported Humalog (Insulin Lispro) 100 Unit/1 Ml Vial 100 Unit SQ TIDWMEALS 09/05/21 Reported Acetaminophen 325 Mg Tablet 325 Mg PO PRN Q6HRS PRN 09/05/21 Reported Calcitriol 0.25 Mcg Capsule 0.25 Mcg PO QMWF 09/05/21 Reported Baqsimi (Glucagon) 3 Mg [place] 3 Mg NS PRN PRN 09/05/21 Reported FENTANYL 25mcg/hr (Fentanyl) 1 Each Patch.td72 37.5 Mcg TD Q72H 09/05/21 Reported Aspirin 81 Mg Tab.chew 81 Mg PO DAILY 09/05/21 Reported Isosorbide Mononitrate Er (Isosorbide Mononitrate) 30 Mg Tab.er.24h 60 Mg PO DAILY 07/25/21 Reported Hydralazine Hcl 10 Mg Tablet 25 Mg PO BID 07/25/21 Reported Gabapentin 600 Mg Tablet 600 Mg PO BID 07/25/21 Reported Carvedilol 25 Mg Tablet 12.5 Mg PO BIDWMEALS 07/25/21 Reported Atorvastatin Calcium 40 Mg Tablet 80 Mg PO HS 07/25/21 Reported Allopurinol 100 Mg Tablet 1 Tab PO DAILY 07/25/21 Reported Folic Acid 0.4 Mg Tablet 0.4 Mg PO DAILY 07/25/21 Reported Cymbalta (Duloxetine Hcl) 20 Mg Capsule.dr 60 Mg PO DAILY 07/25/21 Reported Colace (Docusate Sodium) 100 Mg Capsule 2 Cap PO DAILY 30 07/25/21 Reported Vitamin B-12 (Cyanocobalamin (Vitamin B-12)) 500 Mcg Tab.subl 500 Mcg SL DAILY 07/25/21 Reported Clopidogrel (Clopidogrel Bisulfate) 75 Mg Tablet 1 Tab PO DAILY 07/25/21 Reported Impression . IMPRESSION: 1. Acute hypoxemic respiratory failure, multifactorial. 2. Aspiration pneumonia. 3. Abnormal CT compatible with aspiration pneumonia. 4. Gastroparesis. 5. Opiate abuse. 6. Hyperlipidemia. 7. Hypertension. 8. Coronary artery disease with previous myocardial infarction and PCI. 9. History of recent admission for aseptic meningitis. 10. Leukocytosis. 11. Positive drug screen. Plan . Updated 09/07 Continue antibiotics So far cultures negative MRSA screen negative DC vancomycin Continue oxygen supplementation 519 PLAN: 1. The patient has improved since yesterday, continue current empiric antibiotics. 2. Follow up on blood culture so far blood cultures revealed no growth. Urine culture revealed no growth. 3. Oxygen supplementation. 4. DVT prophylaxis. 5. Advance diet. 6. Continue home meds. 7. Will defer opiate management to Dr. Alvarez. 8. Check MRSA screen. 9. Procalcitonin. I do appreciate the privilege in sharing in the patient's care. KAYLA ROME MD September 07, 2021 08:57
[2021-09-07] MEDS: LACTOBACILLUS RHAMNOSUS GG 1 CAPSULE. PO SCH ×2 (09:00→21:36)
[2021-09-07 11:00] VITALS: BP 153/73
[2021-09-07] MEDS ORDERED: CYCLOBENZAPRINE 10 MG TABLET. PO PRN (11:30)
[2021-09-07] MEDS ORDERED: ONDANSETRON ODT 4 MG TAB.RAPDIS. PO PRN (11:30)
[2021-09-07] MEDS ORDERED: GLUCAGON 3 MG NS PRN (11:30)
[2021-09-07] MEDS ORDERED: NYSTATIN TOPICAL POWDER 15GM BOTTLE. TP PRN (11:30)
[2021-09-07] MEDS ORDERED: NITROGLYCERIN SUBLINGUAL 0.4 MG BOTTLE OF 25. SL PRN (11:30)
[2021-09-07] MEDS ORDERED: INSULIN REGULAR 100 UNIT/ML 3ML VIAL. SQ SCH (12:00)
[2021-09-07] MEDS: CYANOCOBALAMIN (VITAMIN B-12) 1,000 MCG TABLET. PO SCH (12:00)
[2021-09-07] MEDS: INSULIN GLARGINE SYRINGE. SQ SCH (12:00)
[2021-09-07] MEDS: GABAPENTIN 300 MG CAPSULE. PO SCH ×2 (12:29→21:36)
[2021-09-07] MEDS: DULoxetine HCL 30 MG CAPSULE.DR PO SCH (12:30)
[2021-09-07] MEDS: DOCUSATE SODIUM 100 MG CAPSULE. PO SCH (12:30)
[2021-09-07] MEDS: PANTOPRAZOLE 40 MG TABLET.DR. PO SCH (12:31)
[2021-09-07] MEDS: OXYBUTYNIN CHLORIDE 5 MG TABLET PO SCH (12:31)
[2021-09-07] MEDS: ASCORBIC ACID 1,000 MG TABLET PO SCH (12:31)
[2021-09-07] MEDS: CHOLECALCIFEROL (VITAMIN D3) 1,000 UNIT TABLET PO SCH (12:31)
[2021-09-07] MEDS: MULTIVITAMIN with MINERAL TABLET. PO SCH (12:31)
[2021-09-07] MEDS: ASPIRIN CHEWABLE 81 MG TABLET. PO SCH (12:31)
[2021-09-07] MEDS: LEVOTHYROXINE 125 MCG TABLET PO SCH (12:32)
[2021-09-07] MEDS: ALLOPURINOL 100 MG TABLET. PO SCH (12:32)
[2021-09-07] MEDS: CLOPIDOGREL BISULFATE 75 MG TABLET PO SCH (12:32)
[2021-09-07] MEDS: FOLIC ACID 1 MG TABLET. PO SCH (12:32)
[2021-09-07] MEDS: TORSEMIDE 20 MG TABLET. PO SCH ×2 (12:33→16:01)
[2021-09-07] MEDS: LIDOCAINE (700MG/PATCH) PATCH. TD SCH (12:33)
[2021-09-07] MEDS: hydrALAZINE 25 MG TABLET PO SCH ×2 (12:34→21:37)
--- NOTE | 2021-09-07 13:04 | PN ---
DATE: 09/07/2021 SUBJECTIVE: The patient is resting, slightly popped up in bed, in no apparent distress. She is awake, alert, complaining of back pain. She was evaluated by the speech therapist, and she will be now on heart healthy diet. PHYSICAL EXAMINATION: GENERAL: When I examined her, she looked well and was clearly in no apparent respiratory distress. No pallor, jaundice, cyanosis or thyromegaly. No jugular venous distention. No lower limb edema. VITAL SIGNS: Her heart rate was 95, blood pressure was 180/89, temperature was 98.6, respiratory rate was 18 and oxygen saturation was 94% on 3 liters of oxygen. HEAD, EYES, EARS, NOSE, AND THROAT: Normocephalic, atraumatic. NECK: Supple. HEART: Showed normal first and second heart sounds. No gallop or murmur. CHEST: Showed central trachea, equal bilateral chest expansion, air entry, vesicular breath sounds with bilateral basal crepitation posteriorly. Very few scattered rhonchi. ABDOMEN: Distended, soft, nontender, no guarding or rigidity. No organomegaly. All hernial orifice intact. Bowel sounds normal. NEUROLOGIC: She was grossly intact. ASSESSMENT: 1. Acute hypoxic respiratory failure, likely due to aspiration pneumonia as well as acute pulmonary edema. 2. Aspiration pneumonia. 3. Narcotic addiction. 4. The patient has multiple other medical problems including: A. Coronary artery disease status post PCI with stent deployment. B. Hyperlipidemia. C. Hypertension. D. Myocardial infarction. E. Acute on chronic kidney disease, resolving. Her creatinine is down to 1.3. F. Type 2 diabetes mellitus, diabetic gastroparesis and diabetic peripheral neuropathy. PLAN: Plan is to continue with IV Zosyn. Her blood cultures are so far negative. After 2 days, my plan is to discontinue the IV vancomycin, add Lidoderm patches. I will discuss with interventional radiologist whether she is a candidate for vertebroplasty. RUBY/MAAME DR: Geo TID: [id number]
--- NOTE | 2021-09-07 14:30 | NUR ---
SS following up with discharge planning. SS reviewed pt chart and discussed with pt RN. Pt is currently requiring oxygen at three liters nasal canula. Pt has home oxygen. Pulmonology following. COVID19 negative. Pt on IV Zosyn. Pt current on services with [facility], ; fax [phone]. ST following. PO diet. SS will continue to follow for discharge planning.
[2021-09-07 15:00] VITALS: BP 172/82
[2021-09-07] MEDS ORDERED: CALCITRIOL 0.25 MCG CAPSULE. PO SCH (16:00)
[2021-09-07] MEDS ORDERED: FERROUS SULFATE 325 MG TABLET. PO SCH (16:00)
[2021-09-07] MEDS: DRONABINOL 2.5 MG CAPSULE. PO SCH (16:31)
[2021-09-07 19:00] VITALS: BP 126/72
[2021-09-07] MEDS: PATCH REMOVAL. MC SCH (21:00)
[2021-09-07] MEDS: ATORVASTATIN CALCIUM 40 MG TABLET. PO SCH (21:36)
[2021-09-07] MEDS: MAGNESIUM OXIDE 400 MG TABLET PO SCH (21:37)
[2021-09-07] MEDS: SENNOSIDES 8.6 MG TABLET PO SCH (21:42)
[2021-09-07 23:00] VITALS: BP 113/64
[2021-09-08] MEDS: PIPERACILLIN/TAZOBACTAM 3.375 GM in IV NORMAL SALINE 50ML 50 ML IV SCH ×5 (00:02→23:55)
[2021-09-08 02:13] LABS: HEMOGLOBIN A1C 11.2 % (4.8-5.6)
[2021-09-08 03:00] VITALS: BP 102/53
[2021-09-08 07:00] VITALS: BP 104/56
[2021-09-08 07:00] LABS: HEMATOCRIT 32.2 % (36.0-47.0); HEMOGLOBIN 10.5 g/dL (12.0-15.5); RED BLOOD COUNT 3.48 x10^6/uL (3.50-5.40); RED CELL DISTRIBUTION WIDTH 15.1 % (11.5-14.5); WHITE BLOOD COUNT 5.8 x10^3/uL (4.0-11.0)
[2021-09-08 07:20] LABS: ALBUMIN 2.2 g/dL (3.4-5.0); ALBUMIN/GLOBULIN RATIO 0.5 (1.0-1.7); CALCIUM 8.7 mg/dL (8.5-10.1); CREATININE 1.8 mg/dL (0.6-1.0); GFR 28.3; POTASSIUM 3.9 mmol/L (3.5-5.1); TOTAL BILIRUBIN 0.6 mg/dL (0.2-1.0); TOTAL PROTEIN 6.5 g/dL (6.4-8.2)
[2021-09-08] MEDS: PANTOPRAZOLE 40 MG TABLET.DR. PO SCH (08:33)
[2021-09-08] MEDS: MULTIVITAMIN with MINERAL TABLET. PO SCH (08:33)
[2021-09-08] MEDS: CHOLECALCIFEROL (VITAMIN D3) 1,000 UNIT TABLET PO SCH (08:33)
[2021-09-08] MEDS: ASCORBIC ACID 1,000 MG TABLET PO SCH (08:33)
[2021-09-08] MEDS: GABAPENTIN 300 MG CAPSULE. PO SCH ×2 (08:33→21:29)
[2021-09-08] MEDS: ASPIRIN CHEWABLE 81 MG TABLET. PO SCH (08:33)
[2021-09-08] MEDS: DULoxetine HCL 30 MG CAPSULE.DR PO SCH (08:33)
[2021-09-08] MEDS: CLOPIDOGREL BISULFATE 75 MG TABLET PO SCH (08:34)
[2021-09-08] MEDS: OXYBUTYNIN CHLORIDE 5 MG TABLET PO SCH (08:34)
[2021-09-08] MEDS: CYANOCOBALAMIN (VITAMIN B-12) 1,000 MCG TABLET. PO SCH (08:34)
[2021-09-08] MEDS: ALLOPURINOL 100 MG TABLET. PO SCH (08:34)
[2021-09-08] MEDS: FOLIC ACID 1 MG TABLET. PO SCH (08:34)
[2021-09-08] MEDS: LEVOTHYROXINE 125 MCG TABLET PO SCH (08:35)
[2021-09-08] MEDS: TORSEMIDE 20 MG TABLET. PO SCH ×2 (08:35→17:33)
[2021-09-08] MEDS: LIDOCAINE (700MG/PATCH) PATCH. TD SCH (08:36)
[2021-09-08] MEDS: LACTOBACILLUS RHAMNOSUS GG 1 CAPSULE. PO SCH ×2 (08:39→21:28)
[2021-09-08] MEDS: DOCUSATE SODIUM 100 MG CAPSULE. PO SCH (08:39)
[2021-09-08] MEDS: INSULIN LISPRO 300 UNITS/3 ML VIAL. SQ SCH ×6 (08:54→16:17)
[2021-09-08] MEDS: INSULIN GLARGINE SYRINGE. SQ SCH (08:55)
--- NOTE | 2021-09-08 10:48 | PN ---
DATE: 09/08/2021 SUBJECTIVE: The patient is resting, slightly propped up in bed, in no apparent distress. She is awake, alert. She was seen by the speech and language pathologist and she is now able to eat and drink. I have spoken with the interventional radiologist and her CT scan showed that she has a T5 compression fracture; however, all the lumbar spines are well within normal range. On questioning her, she denied any pain this morning. We did use 2 Lidoderm patches for her pain. PHYSICAL EXAMINATION: GENERAL: When I examined her, she was pale, but not jaundiced, cyanosed, no lymphadenopathy, no thyromegaly, no jugular venous distention. No lower limb edema. VITAL SIGNS: Her heart rate was 82, blood pressure is 104/56, temperature was 97.6, respiratory rate 22, and oxygen saturation was 96% on 3 liters of oxygen by nasal cannula. HEAD, EYES, EARS, NOSE, AND THROAT: Normocephalic, atraumatic. NECK: Supple. HEART: Normal first and second heart sounds. No gallop, rub or murmur. CHEST: Shows central trachea, equal bilateral expansion, air entry, vesicular breath sounds with bilateral basal crepitation. I could not really appreciate any rhonchi. ABDOMEN: Distended, soft, nontender. NEUROLOGIC: She was grossly intact. Her intake and output are incompletely recorded. LABORATORY DATA: Her lab work as of this morning showed her white cell count is down to 5.8, hemoglobin 11, hematocrit 32, MCV 93, and platelet count 295,000. Her chemistry showed a serum sodium 142, potassium 3.9, chloride 104, bicarbonate 27, anion gap of 11, BUN 23, creatinine 1.8. Her estimated GFR was 28 mL per minute. Her glucose was 87, calcium was 8.7. Total bilirubin, AST, ALT, alkaline phosphatase were normal. Total protein 6.5, albumin was 2.2. ASSESSMENT: 1. Acute hypoxic respiratory failure, likely due to aspiration pneumonia as well as acute pulmonary edema. 2. Aspiration pneumonia. 3. Narcotic addiction. 4. The patient has multiple other medical problems including: A. Coronary artery disease status post PCI with stent deployment. B. Hyperlipidemia. C. Hypertension. D. Myocardial infarction. E. Acute on chronic kidney injury. Her creatinine came down to 1.3 and today went up to 1.8. The patient is known to have tendency to urinary retention. F. Type 2 diabetes mellitus with diabetic gastroparesis and diabetic peripheral neuropathy. PLAN: To continue with IV Zosyn. I did order an MRI of the thoracic spine and I consulted the interventional radiologist to see whether she is a candidate for kyphoplasty. OCHOA DR: Geo TID: [id number]
--- NOTE | 2021-09-08 11:03 | PDOC ---
PULMONARY PROGRESS NOTES DATE: 09/08/21 TIME: 11:03 Subjective Patient patient getting ready to eat, feels better, not short of air Vitals Vital Signs Date Time Temp Pulse Resp B/P (MAP) Pulse Ox O2 Delivery O2 Flow Rate FiO2 09/08/21 08:00 Nasal Cannula 3.0 09/08/21 07:00 97.6 82 22 104/56 (72) 96 97.6 ROS: No Nausea, No Chest Pain, No Abdominal Pain, No Increase Cough General: Alert Lungs: Crackles Cardiovascular: S1, S2 Abdomen: Soft Neuro Exam: Alert Extremities: No Edema Labs Laboratory Tests Test 09/06/21 12:02 09/06/21 16:57 09/06/21 17:35 09/06/21 19:44 Glucose (Fingerstick) 258 mg/dL (70-99) 276 mg/dL (70-99) 254 mg/dL (70-99) Vancomycin Level Trough 18.1 mcg/mL (10.0-20.0) Vancomycin Last Dose Date 09/05/21 Vancomycin Last Dose Time 1800 Test 09/07/21 05:30 09/07/21 07:50 09/07/21 10:56 09/07/21 17:14 Sodium Level 140 mmol/L (136-145) Potassium Level 4.4 mmol/L (3.5-5.1) Chloride Level 104 mmol/L (98-107) Carbon Dioxide Level 24 mmol/L (21-32) Anion Gap 12 (6-14) Blood Urea Nitrogen 26 mg/dL (7-20) Creatinine 1.3 mg/dL (0.6-1.0) Estimated GFR (Cockcroft-Gault) 41.2 Glucose Level 299 mg/dL (70-99) Hemoglobin A1c 11.2 % (4.8-5.6) Calcium Level 8.1 mg/dL (8.5-10.1) Glucose (Fingerstick) 328 mg/dL (70-99) 290 mg/dL (70-99) 303 mg/dL (70-99) Test 09/07/21 20:01 09/08/21 02:38 09/08/21 03:01 09/08/21 05:30 Glucose (Fingerstick) 220 mg/dL (70-99) 57 mg/dL (70-99) 90 mg/dL (70-99) White Blood Count 5.8 x10^3/uL (4.0-11.0) Red Blood Count 3.48 x10^6/uL (3.50-5.40) Hemoglobin 10.5 g/dL (12.0-15.5) Hematocrit 32.2 % (36.0-47.0) Mean Corpuscular Volume 93 fL (79-100) Mean Corpuscular Hemoglobin 30 pg (25-35) Mean Corpuscular Hemoglobin Concent 33 g/dL (31-37) Red Cell Distribution Width 15.1 % (11.5-14.5) Platelet Count 295 x10^3/uL (140-400) Sodium Level 142 mmol/L (136-145) Potassium Level 3.9 mmol/L (3.5-5.1) Chloride Level 104 mmol/L (98-107) Carbon Dioxide Level 27 mmol/L (21-32) Anion Gap 11 (6-14) Blood Urea Nitrogen 23 mg/dL (7-20) Creatinine 1.8 mg/dL (0.6-1.0) Estimated GFR (Cockcroft-Gault) 28.3 BUN/Creatinine Ratio 13 (6-20) Glucose Level 87 mg/dL (70-99) Calcium Level 8.7 mg/dL (8.5-10.1) Total Bilirubin 0.6 mg/dL (0.2-1.0) Aspartate Amino Transf (AST/SGOT) 11 U/L (15-37) Alanine Aminotransferase (ALT/SGPT) 21 U/L (14-59) Alkaline Phosphatase 109 U/L (46-116) Total Protein 6.5 g/dL (6.4-8.2) Albumin 2.2 g/dL (3.4-5.0) Albumin/Globulin Ratio 0.5 (1.0-1.7) Test 09/08/21 08:10 09/08/21 10:47 Glucose (Fingerstick) 166 mg/dL (70-99) 204 mg/dL (70-99) Laboratory Tests Test 09/07/21 17:14 09/07/21 20:01 09/08/21 02:38 09/08/21 03:01 Glucose (Fingerstick) 303 mg/dL (70-99) 220 mg/dL (70-99) 57 mg/dL (70-99) 90 mg/dL (70-99) Test 09/08/21 05:30 09/08/21 08:10 09/08/21 10:47 White Blood Count 5.8 x10^3/uL (4.0-11.0) Red Blood Count 3.48 x10^6/uL (3.50-5.40) Hemoglobin 10.5 g/dL (12.0-15.5) Hematocrit 32.2 % (36.0-47.0) Mean Corpuscular Volume 93 fL (79-100) Mean Corpuscular Hemoglobin 30 pg (25-35) Mean Corpuscular Hemoglobin Concent 33 g/dL (31-37) Red Cell Distribution Width 15.1 % (11.5-14.5) Platelet Count 295 x10^3/uL (140-400) Sodium Level 142 mmol/L (136-145) Potassium Level 3.9 mmol/L (3.5-5.1) Chloride Level 104 mmol/L (98-107) Carbon Dioxide Level 27 mmol/L (21-32) Anion Gap 11 (6-14) Blood Urea Nitrogen 23 mg/dL (7-20) Creatinine 1.8 mg/dL (0.6-1.0) Estimated GFR (Cockcroft-Gault) 28.3 BUN/Creatinine Ratio 13 (6-20) Glucose Level 87 mg/dL (70-99) Calcium Level 8.7 mg/dL (8.5-10.1) Total Bilirubin 0.6 mg/dL (0.2-1.0) Aspartate Amino Transf (AST/SGOT) 11 U/L (15-37) Alanine Aminotransferase (ALT/SGPT) 21 U/L (14-59) Alkaline Phosphatase 109 U/L (46-116) Total Protein 6.5 g/dL (6.4-8.2) Albumin 2.2 g/dL (3.4-5.0) Albumin/Globulin Ratio 0.5 (1.0-1.7) Glucose (Fingerstick) 166 mg/dL (70-99) 204 mg/dL (70-99) Medications Active Scripts Medications Dose Route/Sig Max Daily Dose Days Date Category Dose Instructions Vitamin D3 (Vitamin D) 125 Mcg Capsule 1,000 Units PO DAILY 09/05/21 Reported 5,000 UNITS = 125 MCG Vitamin C (Ascorbic Acid) 1,000 Mg Tablet 1,000 Mg PO DAILY 09/05/21 Reported Tresiba (Insulin Degludec) 100 Unit/1 Ml Vial 34 Unit SQ DAILY 09/05/21 Reported Torsemide 20 Mg Tablet 20 Mg PO HS 09/05/21 Reported Torsemide 20 Mg Tablet 40 Mg PO DAILY 09/05/21 Reported Senna Laxative (Sennosides) 8.6 Mg Tablet 4 Tab PO HS 09/05/21 Reported Pantoprazole Sodium (Pantoprazole Sodium) 40 Mg Tablet.dr 40 Mg PO DAILYAC 09/05/21 Reported Oxybutynin Chloride 5 Mg Tablet 5 Mg PO DAILY 09/05/21 Reported Cyclobenzaprine Hcl 10 Mg Tablet 10 Mg PO PRN TID PRN 09/05/21 Reported Dronabinol 10 Mg Capsule 10 Mg PO BID 09/05/21 Reported Ondansetron Odt (Ondansetron) 4 Mg Tab.rapdis 4 Mg PO BID PRN 09/05/21 Reported Nystatin 15 Gm Powder 15 Gm TP PRN BID PRN 09/05/21 Reported NITROGLYCERIN SubLingual (Nitroglycerin) 0.4 Mg Tab.subl 0.4 Mg SL PRN Q5MIN PRN 09/05/21 Reported Multi Vitamin Daily (Multivitamin) 1 Each Tablet 1 Each PO DAILY 09/05/21 Reported Metolazone 2.5 Mg Tablet 2.5 Mg PO QMWF 09/05/21 Reported Magnesium (Magnesium Oxide) 400 Mg Capsule 400 Mg PO HS 09/05/21 Reported Levothyroxine Sodium 125 Mcg Tablet 125 Mcg PO DAILYAC 09/05/21 Reported Hydromorphone Hcl 4 Mg Tablet 3 Mg PO PRN Q4HRS PRN 09/05/21 Reported Ferrous Sulfate 325 Mg Tablet 65 Mg PO QMWF 09/05/21 Reported Humalog (Insulin Lispro) 100 Unit/1 Ml Vial 100 Unit SQ TIDWMEALS 09/05/21 Reported Acetaminophen 325 Mg Tablet 325 Mg PO PRN Q6HRS PRN 09/05/21 Reported Calcitriol 0.25 Mcg Capsule 0.25 Mcg PO QMWF 09/05/21 Reported Baqsimi (Glucagon) 3 Mg [place] 3 Mg NS PRN PRN 09/05/21 Reported FENTANYL 25mcg/hr (Fentanyl) 1 Each Patch.td72 37.5 Mcg TD Q72H 09/05/21 Reported Aspirin 81 Mg Tab.chew 81 Mg PO DAILY 09/05/21 Reported Isosorbide Mononitrate Er (Isosorbide Mononitrate) 30 Mg Tab.er.24h 60 Mg PO DAILY 07/25/21 Reported Hydralazine Hcl 10 Mg Tablet 25 Mg PO BID 07/25/21 Reported Gabapentin 600 Mg Tablet 600 Mg PO BID 07/25/21 Reported Carvedilol 25 Mg Tablet 12.5 Mg PO BIDWMEALS 07/25/21 Reported Atorvastatin Calcium 40 Mg Tablet 80 Mg PO HS 07/25/21 Reported Allopurinol 100 Mg Tablet 1 Tab PO DAILY 07/25/21 Reported Folic Acid 0.4 Mg Tablet 0.4 Mg PO DAILY 07/25/21 Reported Cymbalta (Duloxetine Hcl) 20 Mg Capsule.dr 60 Mg PO DAILY 07/25/21 Reported Colace (Docusate Sodium) 100 Mg Capsule 2 Cap PO DAILY 30 07/25/21 Reported Vitamin B-12 (Cyanocobalamin (Vitamin B-12)) 500 Mcg Tab.subl 500 Mcg SL DAILY 07/25/21 Reported Clopidogrel (Clopidogrel Bisulfate) 75 Mg Tablet 1 Tab PO DAILY 07/25/21 Reported Impression . IMPRESSION: 1. Acute hypoxemic respiratory failure, multifactorial. 2. Aspiration pneumonia. 3. Abnormal CT compatible with aspiration pneumonia. 4. Gastroparesis. 5. Opiate abuse. 6. Hyperlipidemia. 7. Hypertension. 8. Coronary artery disease with previous myocardial infarction and PCI. 9. History of recent admission for aseptic meningitis. 10. Leukocytosis. 11. Positive drug screen. Plan . Updated 09/08 Continue antibiotics So far cultures negative MRSA screen negative DC vancomycin Continue oxygen supplementation Appreciate speech input KAYLA ROME MD September 08, 2021 11:03
[2021-09-08 11:27] VITALS: BP 124/67
[2021-09-08] MEDS: DRONABINOL 2.5 MG CAPSULE. PO SCH ×2 (12:21→17:34)
[2021-09-08] MEDS: hydrALAZINE 25 MG TABLET PO SCH ×2 (12:21→21:00)
[2021-09-08] MEDS: CARVEDILOL 12.5 MG TABLET. PO SCH ×2 (12:21→17:34)
[2021-09-08 15:20] VITALS: BP 108/68
[2021-09-08 19:00] VITALS: BP 105/54
[2021-09-08] MEDS: PATCH REMOVAL. MC SCH (21:00)
[2021-09-08] MEDS: SENNOSIDES 8.6 MG TABLET PO SCH (21:29)
[2021-09-08] MEDS: ATORVASTATIN CALCIUM 40 MG TABLET. PO SCH (21:29)
[2021-09-08] MEDS: MAGNESIUM OXIDE 400 MG TABLET PO SCH (21:29)
[2021-09-08 23:00] VITALS: BP 125/68
[2021-09-08] MEDS: ACETAMINOPHEN 325 MG TABLET. PO PRN (23:59)
[2021-09-09 03:00] VITALS: BP 119/56
[2021-09-09] MEDS: PIPERACILLIN/TAZOBACTAM 3.375 GM in IV NORMAL SALINE 50ML 50 ML IV SCH ×2 (05:45→12:04)
[2021-09-09 07:00] VITALS: BP 140/71
[2021-09-09] MEDS: INSULIN LISPRO 300 UNITS/3 ML VIAL. SQ SCH ×6 (07:44→17:11)
--- NOTE | 2021-09-09 07:46 | PDOC ---
PULMONARY PROGRESS NOTES DATE: 09/09/21 TIME: 07:46 Subjective No new complaints Patient patient getting ready to eat, feels better, not short of air Vitals Vital Signs Date Time Temp Pulse Resp B/P (MAP) Pulse Ox O2 Delivery O2 Flow Rate FiO2 09/09/21 03:00 98.8 87 16 119/56 (77) 97 Nasal Cannula 3.0 98.8 ROS: No Nausea, No Chest Pain, No Abdominal Pain, No Increase Cough General: Alert Lungs: Crackles Cardiovascular: S1, S2 Abdomen: Soft Neuro Exam: Alert Extremities: No Edema Labs Laboratory Tests Test 09/07/21 07:50 09/07/21 10:56 09/07/21 17:14 09/07/21 20:01 Glucose (Fingerstick) 328 mg/dL (70-99) 290 mg/dL (70-99) 303 mg/dL (70-99) 220 mg/dL (70-99) Test 09/08/21 02:38 09/08/21 03:01 09/08/21 05:30 09/08/21 08:10 Glucose (Fingerstick) 57 mg/dL (70-99) 90 mg/dL (70-99) 166 mg/dL (70-99) White Blood Count 5.8 x10^3/uL (4.0-11.0) Red Blood Count 3.48 x10^6/uL (3.50-5.40) Hemoglobin 10.5 g/dL (12.0-15.5) Hematocrit 32.2 % (36.0-47.0) Mean Corpuscular Volume 93 fL (79-100) Mean Corpuscular Hemoglobin 30 pg (25-35) Mean Corpuscular Hemoglobin Concent 33 g/dL (31-37) Red Cell Distribution Width 15.1 % (11.5-14.5) Platelet Count 295 x10^3/uL (140-400) Sodium Level 142 mmol/L (136-145) Potassium Level 3.9 mmol/L (3.5-5.1) Chloride Level 104 mmol/L (98-107) Carbon Dioxide Level 27 mmol/L (21-32) Anion Gap 11 (6-14) Blood Urea Nitrogen 23 mg/dL (7-20) Creatinine 1.8 mg/dL (0.6-1.0) Estimated GFR (Cockcroft-Gault) 28.3 BUN/Creatinine Ratio 13 (6-20) Glucose Level 87 mg/dL (70-99) Calcium Level 8.7 mg/dL (8.5-10.1) Total Bilirubin 0.6 mg/dL (0.2-1.0) Aspartate Amino Transf (AST/SGOT) 11 U/L (15-37) Alanine Aminotransferase (ALT/SGPT) 21 U/L (14-59) Alkaline Phosphatase 109 U/L (46-116) Total Protein 6.5 g/dL (6.4-8.2) Albumin 2.2 g/dL (3.4-5.0) Albumin/Globulin Ratio 0.5 (1.0-1.7) Test 09/08/21 10:47 09/08/21 16:05 09/08/21 16:41 09/08/21 20:50 Glucose (Fingerstick) 204 mg/dL (70-99) 68 mg/dL (70-99) 82 mg/dL (70-99) 102 mg/dL (70-99) Test 09/09/21 07:06 Glucose (Fingerstick) 106 mg/dL (70-99) Laboratory Tests Test 09/08/21 08:10 09/08/21 10:47 09/08/21 16:05 09/08/21 16:41 Glucose (Fingerstick) 166 mg/dL (70-99) 204 mg/dL (70-99) 68 mg/dL (70-99) 82 mg/dL (70-99) Test 09/08/21 20:50 09/09/21 07:06 Glucose (Fingerstick) 102 mg/dL (70-99) 106 mg/dL (70-99) Medications Active Scripts Medications Dose Route/Sig Max Daily Dose Days Date Category Dose Instructions Vitamin D3 (Vitamin D) 125 Mcg Capsule 1,000 Units PO DAILY 09/05/21 Reported 5,000 UNITS = 125 MCG Vitamin C (Ascorbic Acid) 1,000 Mg Tablet 1,000 Mg PO DAILY 09/05/21 Reported Tresiba (Insulin Degludec) 100 Unit/1 Ml Vial 34 Unit SQ DAILY 09/05/21 Reported Torsemide 20 Mg Tablet 20 Mg PO HS 09/05/21 Reported Torsemide 20 Mg Tablet 40 Mg PO DAILY 09/05/21 Reported Senna Laxative (Sennosides) 8.6 Mg Tablet 4 Tab PO HS 09/05/21 Reported Pantoprazole Sodium (Pantoprazole Sodium) 40 Mg Tablet.dr 40 Mg PO DAILYAC 09/05/21 Reported Oxybutynin Chloride 5 Mg Tablet 5 Mg PO DAILY 09/05/21 Reported Cyclobenzaprine Hcl 10 Mg Tablet 10 Mg PO PRN TID PRN 09/05/21 Reported Dronabinol 10 Mg Capsule 10 Mg PO BID 09/05/21 Reported Ondansetron Odt (Ondansetron) 4 Mg Tab.rapdis 4 Mg PO BID PRN 09/05/21 Reported Nystatin 15 Gm Powder 15 Gm TP PRN BID PRN 09/05/21 Reported NITROGLYCERIN SubLingual (Nitroglycerin) 0.4 Mg Tab.subl 0.4 Mg SL PRN Q5MIN PRN 09/05/21 Reported Multi Vitamin Daily (Multivitamin) 1 Each Tablet 1 Each PO DAILY 09/05/21 Reported Metolazone 2.5 Mg Tablet 2.5 Mg PO QMWF 09/05/21 Reported Magnesium (Magnesium Oxide) 400 Mg Capsule 400 Mg PO HS 09/05/21 Reported Levothyroxine Sodium 125 Mcg Tablet 125 Mcg PO DAILYAC 09/05/21 Reported Hydromorphone Hcl 4 Mg Tablet 3 Mg PO PRN Q4HRS PRN 09/05/21 Reported Ferrous Sulfate 325 Mg Tablet 65 Mg PO QMWF 09/05/21 Reported Humalog (Insulin Lispro) 100 Unit/1 Ml Vial 100 Unit SQ TIDWMEALS 09/05/21 Reported Acetaminophen 325 Mg Tablet 325 Mg PO PRN Q6HRS PRN 09/05/21 Reported Calcitriol 0.25 Mcg Capsule 0.25 Mcg PO QMWF 09/05/21 Reported Baqsimi (Glucagon) 3 Mg [place] 3 Mg NS PRN PRN 09/05/21 Reported FENTANYL 25mcg/hr (Fentanyl) 1 Each Patch.td72 37.5 Mcg TD Q72H 09/05/21 Reported Aspirin 81 Mg Tab.chew 81 Mg PO DAILY 09/05/21 Reported Isosorbide Mononitrate Er (Isosorbide Mononitrate) 30 Mg Tab.er.24h 60 Mg PO DAILY 07/25/21 Reported Hydralazine Hcl 10 Mg Tablet 25 Mg PO BID 07/25/21 Reported Gabapentin 600 Mg Tablet 600 Mg PO BID 07/25/21 Reported Carvedilol 25 Mg Tablet 12.5 Mg PO BIDWMEALS 07/25/21 Reported Atorvastatin Calcium 40 Mg Tablet 80 Mg PO HS 07/25/21 Reported Allopurinol 100 Mg Tablet 1 Tab PO DAILY 07/25/21 Reported Folic Acid 0.4 Mg Tablet 0.4 Mg PO DAILY 07/25/21 Reported Cymbalta (Duloxetine Hcl) 20 Mg Capsule.dr 60 Mg PO DAILY 07/25/21 Reported Colace (Docusate Sodium) 100 Mg Capsule 2 Cap PO DAILY 30 07/25/21 Reported Vitamin B-12 (Cyanocobalamin (Vitamin B-12)) 500 Mcg Tab.subl 500 Mcg SL DAILY 07/25/21 Reported Clopidogrel (Clopidogrel Bisulfate) 75 Mg Tablet 1 Tab PO DAILY 07/25/21 Reported Impression . IMPRESSION: 1. Acute hypoxemic respiratory failure, multifactorial. 2. Aspiration pneumonia. 3. Abnormal CT compatible with aspiration pneumonia. 4. Gastroparesis. 5. Opiate abuse. 6. Hyperlipidemia. 7. Hypertension. 8. Coronary artery disease with previous myocardial infarction and PCI. 9. History of recent admission for aseptic meningitis. 10. Leukocytosis. 11. Positive drug screen. Plan . 09/09 Previous Echo nl EF repeat cxr in am Possible dc on 09/10 Continue antibiotics So far cultures negative MRSA screen negative DC vancomycin Continue oxygen supplementation Appreciate speech input KAYLA ROME MD September 09, 2021 07:46
[2021-09-09] MEDS: PANTOPRAZOLE 40 MG TABLET.DR. PO SCH (08:11)
[2021-09-09] MEDS: CHOLECALCIFEROL (VITAMIN D3) 1,000 UNIT TABLET PO SCH (08:11)
[2021-09-09] MEDS: CYANOCOBALAMIN (VITAMIN B-12) 1,000 MCG TABLET. PO SCH (08:11)
[2021-09-09] MEDS: ASPIRIN CHEWABLE 81 MG TABLET. PO SCH (08:11)
[2021-09-09] MEDS: TORSEMIDE 20 MG TABLET. PO SCH ×2 (08:11→17:05)
[2021-09-09] MEDS: MULTIVITAMIN with MINERAL TABLET. PO SCH (08:11)
[2021-09-09] MEDS: FOLIC ACID 1 MG TABLET. PO SCH (08:11)
[2021-09-09] MEDS: OXYBUTYNIN CHLORIDE 5 MG TABLET PO SCH (08:12)
[2021-09-09] MEDS: DRONABINOL 2.5 MG CAPSULE. PO SCH ×2 (08:12→17:05)
[2021-09-09] MEDS: CLOPIDOGREL BISULFATE 75 MG TABLET PO SCH (08:12)
[2021-09-09] MEDS: LEVOTHYROXINE 125 MCG TABLET PO SCH (08:12)
[2021-09-09] MEDS: ASCORBIC ACID 1,000 MG TABLET PO SCH (08:12)
[2021-09-09] MEDS: GABAPENTIN 300 MG CAPSULE. PO SCH ×2 (08:12→20:08)
[2021-09-09] MEDS: DOCUSATE SODIUM 100 MG CAPSULE. PO SCH (08:12)
[2021-09-09] MEDS: DULoxetine HCL 30 MG CAPSULE.DR PO SCH (08:12)
[2021-09-09] MEDS: ALLOPURINOL 100 MG TABLET. PO SCH (08:12)
[2021-09-09] MEDS: LIDOCAINE (700MG/PATCH) PATCH. TD SCH (08:13)
[2021-09-09] MEDS: LACTOBACILLUS RHAMNOSUS GG 1 CAPSULE. PO SCH ×2 (08:13→20:09)
[2021-09-09] MEDS: CARVEDILOL 12.5 MG TABLET. PO SCH ×2 (08:15→17:05)
[2021-09-09] MEDS: hydrALAZINE 25 MG TABLET PO SCH ×2 (08:15→20:09)
[2021-09-09] MEDS: INSULIN GLARGINE SYRINGE. SQ SCH (10:17)
[2021-09-09 11:00] VITALS: BP 141/60
[2021-09-09 15:00] VITALS: BP 133/86
--- NOTE | 2021-09-09 17:52 | PN ---
DATE: 09/09/2021 SUBJECTIVE: The patient is resting, slightly propped up in bed, in no apparent respiratory distress. She is awake, alert. On questioning her, she denied any complaint. Nursing staff did not voice any concerns, stated that she had an uneventful night. PHYSICAL EXAMINATION: GENERAL: When I examined her, she looked well, somewhat pale. Not jaundiced, cyanosed or thyromegaly. No jugular venous distention. No lower limb edema. VITAL SIGNS: Her heart rate was 71, blood pressure was 140/81, temperature was 98.8, respiratory rate was 16 and oxygen saturation was 97% on 3 liters of oxygen. HEAD, EYES, EARS, NOSE, AND THROAT: Showed normocephalic, atraumatic. NECK: Supple. HEART: Showed normal first and second heart sounds. No gallop or murmur. CHEST: Clear to auscultation. Central trachea, equal bilateral chest expansion. Air entry expansion with crepitation mostly bilaterally posteriorly. I could not appreciate any rhonchi. ABDOMEN: Distended, soft, nontender. NEUROLOGIC: She was grossly intact. Her intake over the last 24 hours was 400 and output was 1000. LABORATORY DATA: As of yesterday; her white cell count was down to 5.8, hemoglobin 10.5, hematocrit 32, MCV 93, and platelet count 295,000. Her chemistry showed a serum sodium of 142, potassium 3.9, chloride 104, bicarbonate 27, anion gap of 11, BUN 23, creatinine was 1.8. Her estimated GFR was 28 mL per minute. Her glucose was 166, calcium was 8.7. Total bilirubin, AST, ALT, alkaline phosphatase were normal. Total protein 6.5, albumin 2.2. ASSESSMENT: 1. Acute hypoxic respiratory failure, likely due to aspiration pneumonia as well as acute pulmonary edema. 2. Aspiration pneumonia. 3. Narcotic addiction. 4. The patient has multiple other medical problems including: A. Coronary artery disease, status post percutaneous coronary intervention and stent deployment. B. Hyperlipidemia. C. Hypertension. D. Myocardial infarction. E. Acute on chronic kidney injury. F. Type 2 diabetes mellitus with diabetic gastroparesis and diabetic peripheral neuropathy. G. T5 compression fracture with chronic back pain. PLAN: To switch her to oral Augmentin and she can be discharged home perhaps with home health and we will arrange for her to have an MRI of the thoracic spine as an outpatient as well as vertebroplasty. MICHELLE DR: Geo TID: [id number]
[2021-09-09 19:00] VITALS: BP 131/66
[2021-09-09] MEDS: SENNOSIDES 8.6 MG TABLET PO SCH (20:08)
[2021-09-09] MEDS: MAGNESIUM OXIDE 400 MG TABLET PO SCH (20:08)
[2021-09-09] MEDS: ATORVASTATIN CALCIUM 40 MG TABLET. PO SCH (20:09)
[2021-09-09] MEDS: AMOXICILLIN/K CLAV 500/125MG TABLET. PO SCH (20:09)
[2021-09-09] MEDS: PATCH REMOVAL. MC SCH (20:16)
[2021-09-09 23:00] VITALS: BP 147/69
[2021-09-10 03:00] VITALS: BP 133/53
[2021-09-10 07:00] VITALS: BP 176/79
[2021-09-10 07:15] LABS: CALCIUM 8.7 mg/dL (8.5-10.1); CREATININE 1.8 mg/dL (0.6-1.0); GFR 28.3; POTASSIUM 3.8 mmol/L (3.5-5.1)
[2021-09-10] MEDS: INSULIN LISPRO 300 UNITS/3 ML VIAL. SQ SCH ×4 (08:00→13:10)
[2021-09-10] MEDS: INSULIN GLARGINE SYRINGE. SQ SCH ×2 (09:00→13:12)
--- NOTE | 2021-09-10 09:06 | PDOC ---
PULMONARY PROGRESS NOTES DATE: 09/10/21 TIME: 09:05 Subjective no overnight events No new complaints Patient patient getting ready to eat, feels better, not short of air Vitals Vital Signs Date Time Temp Pulse Resp B/P (MAP) Pulse Ox O2 Delivery O2 Flow Rate FiO2 09/10/21 03:00 98.4 88 16 133/53 (79) 97 Nasal Cannula 3.0 98.4 ROS: No Nausea, No Chest Pain, No Abdominal Pain, No Increase Cough General: Alert Lungs: Crackles Cardiovascular: S1, S2 Abdomen: Soft Neuro Exam: Alert Extremities: No Edema Labs Laboratory Tests Test 09/08/21 10:47 09/08/21 16:05 09/08/21 16:41 09/08/21 20:50 Glucose (Fingerstick) 204 mg/dL (70-99) 68 mg/dL (70-99) 82 mg/dL (70-99) 102 mg/dL (70-99) Test 09/09/21 07:06 09/09/21 11:29 09/09/21 16:43 09/09/21 20:31 Glucose (Fingerstick) 106 mg/dL (70-99) 237 mg/dL (70-99) 183 mg/dL (70-99) 128 mg/dL (70-99) Test 09/10/21 06:40 09/10/21 07:56 Sodium Level 144 mmol/L (136-145) Potassium Level 3.8 mmol/L (3.5-5.1) Chloride Level 107 mmol/L (98-107) Carbon Dioxide Level 28 mmol/L (21-32) Anion Gap 9 (6-14) Blood Urea Nitrogen 29 mg/dL (7-20) Creatinine 1.8 mg/dL (0.6-1.0) Estimated GFR (Cockcroft-Gault) 28.3 Glucose Level 78 mg/dL (70-99) Calcium Level 8.7 mg/dL (8.5-10.1) Glucose (Fingerstick) 64 mg/dL (70-99) Laboratory Tests Test 09/09/21 11:29 09/09/21 16:43 09/09/21 20:31 09/10/21 06:40 Glucose (Fingerstick) 237 mg/dL (70-99) 183 mg/dL (70-99) 128 mg/dL (70-99) Sodium Level 144 mmol/L (136-145) Potassium Level 3.8 mmol/L (3.5-5.1) Chloride Level 107 mmol/L (98-107) Carbon Dioxide Level 28 mmol/L (21-32) Anion Gap 9 (6-14) Blood Urea Nitrogen 29 mg/dL (7-20) Creatinine 1.8 mg/dL (0.6-1.0) Estimated GFR (Cockcroft-Gault) 28.3 Glucose Level 78 mg/dL (70-99) Calcium Level 8.7 mg/dL (8.5-10.1) Test 09/10/21 07:56 Glucose (Fingerstick) 64 mg/dL (70-99) Medications Active Scripts Medications Dose Route/Sig Max Daily Dose Days Date Category Dose Instructions Vitamin D3 (Vitamin D) 125 Mcg Capsule 1,000 Units PO DAILY 09/05/21 Reported 5,000 UNITS = 125 MCG Vitamin C (Ascorbic Acid) 1,000 Mg Tablet 1,000 Mg PO DAILY 09/05/21 Reported Tresiba (Insulin Degludec) 100 Unit/1 Ml Vial 34 Unit SQ DAILY 09/05/21 Reported Torsemide 20 Mg Tablet 20 Mg PO HS 09/05/21 Reported Torsemide 20 Mg Tablet 40 Mg PO DAILY 09/05/21 Reported Senna Laxative (Sennosides) 8.6 Mg Tablet 4 Tab PO HS 09/05/21 Reported Pantoprazole Sodium (Pantoprazole Sodium) 40 Mg Tablet.dr 40 Mg PO DAILYAC 09/05/21 Reported Oxybutynin Chloride 5 Mg Tablet 5 Mg PO DAILY 09/05/21 Reported Cyclobenzaprine Hcl 10 Mg Tablet 10 Mg PO PRN TID PRN 09/05/21 Reported Dronabinol 10 Mg Capsule 10 Mg PO BID 09/05/21 Reported Ondansetron Odt (Ondansetron) 4 Mg Tab.rapdis 4 Mg PO BID PRN 09/05/21 Reported Nystatin 15 Gm Powder 15 Gm TP PRN BID PRN 09/05/21 Reported NITROGLYCERIN SubLingual (Nitroglycerin) 0.4 Mg Tab.subl 0.4 Mg SL PRN Q5MIN PRN 09/05/21 Reported Multi Vitamin Daily (Multivitamin) 1 Each Tablet 1 Each PO DAILY 09/05/21 Reported Metolazone 2.5 Mg Tablet 2.5 Mg PO QMWF 09/05/21 Reported Magnesium (Magnesium Oxide) 400 Mg Capsule 400 Mg PO HS 09/05/21 Reported Levothyroxine Sodium 125 Mcg Tablet 125 Mcg PO DAILYAC 09/05/21 Reported Hydromorphone Hcl 4 Mg Tablet 3 Mg PO PRN Q4HRS PRN 09/05/21 Reported Ferrous Sulfate 325 Mg Tablet 65 Mg PO QMWF 09/05/21 Reported Humalog (Insulin Lispro) 100 Unit/1 Ml Vial 100 Unit SQ TIDWMEALS 09/05/21 Reported Acetaminophen 325 Mg Tablet 325 Mg PO PRN Q6HRS PRN 09/05/21 Reported Calcitriol 0.25 Mcg Capsule 0.25 Mcg PO QMWF 09/05/21 Reported Baqsimi (Glucagon) 3 Mg [place] 3 Mg NS PRN PRN 09/05/21 Reported FENTANYL 25mcg/hr (Fentanyl) 1 Each Patch.td72 37.5 Mcg TD Q72H 09/05/21 Reported Aspirin 81 Mg Tab.chew 81 Mg PO DAILY 09/05/21 Reported Isosorbide Mononitrate Er (Isosorbide Mononitrate) 30 Mg Tab.er.24h 60 Mg PO DAILY 07/25/21 Reported Hydralazine Hcl 10 Mg Tablet 25 Mg PO BID 07/25/21 Reported Gabapentin 600 Mg Tablet 600 Mg PO BID 07/25/21 Reported Carvedilol 25 Mg Tablet 12.5 Mg PO BIDWMEALS 07/25/21 Reported Atorvastatin Calcium 40 Mg Tablet 80 Mg PO HS 07/25/21 Reported Allopurinol 100 Mg Tablet 1 Tab PO DAILY 07/25/21 Reported Folic Acid 0.4 Mg Tablet 0.4 Mg PO DAILY 07/25/21 Reported Cymbalta (Duloxetine Hcl) 20 Mg Capsule.dr 60 Mg PO DAILY 07/25/21 Reported Colace (Docusate Sodium) 100 Mg Capsule 2 Cap PO DAILY 30 07/25/21 Reported Vitamin B-12 (Cyanocobalamin (Vitamin B-12)) 500 Mcg Tab.subl 500 Mcg SL DAILY 07/25/21 Reported Clopidogrel (Clopidogrel Bisulfate) 75 Mg Tablet 1 Tab PO DAILY 07/25/21 Reported Impression . IMPRESSION: 1. Acute hypoxemic respiratory failure, multifactorial. 2. Aspiration pneumonia. 3. Abnormal CT compatible with aspiration pneumonia. 4. Gastroparesis. 5. Opiate abuse. 6. Hyperlipidemia. 7. Hypertension. 8. Coronary artery disease with previous myocardial infarction and PCI. 9. History of recent admission for aseptic meningitis. 10. Leukocytosis. 11. Positive drug screen. Plan . 09/10 follow up in Nov Previous Echo nl EF oral antibx So far cultures negative MRSA screen negative DC vancomycin Continue oxygen supplementation Appreciate speech input KAYLA ROME MD September 10, 2021 09:05
[2021-09-10] MEDS: LEVOTHYROXINE 125 MCG TABLET PO SCH (09:31)
[2021-09-10] MEDS: DRONABINOL 2.5 MG CAPSULE. PO SCH (09:32)
[2021-09-10] MEDS: ASPIRIN CHEWABLE 81 MG TABLET. PO SCH (09:33)
[2021-09-10] MEDS: TORSEMIDE 20 MG TABLET. PO SCH (09:33)
[2021-09-10] MEDS: OXYBUTYNIN CHLORIDE 5 MG TABLET PO SCH (09:33)
[2021-09-10] MEDS: AMOXICILLIN/K CLAV 500/125MG TABLET. PO SCH (09:33)
[2021-09-10] MEDS: LACTOBACILLUS RHAMNOSUS GG 1 CAPSULE. PO SCH (09:34)
[2021-09-10] MEDS: FOLIC ACID 1 MG TABLET. PO SCH (09:34)
[2021-09-10] MEDS: CLOPIDOGREL BISULFATE 75 MG TABLET PO SCH (09:34)
[2021-09-10] MEDS: DULoxetine HCL 30 MG CAPSULE.DR PO SCH (09:34)
[2021-09-10] MEDS: CYANOCOBALAMIN (VITAMIN B-12) 1,000 MCG TABLET. PO SCH (09:35)
[2021-09-10] MEDS: MULTIVITAMIN with MINERAL TABLET. PO SCH (09:36)
[2021-09-10] MEDS: hydrALAZINE 25 MG TABLET PO SCH (09:36)
[2021-09-10] MEDS: DOCUSATE SODIUM 100 MG CAPSULE. PO SCH (09:37)
[2021-09-10] MEDS: ALLOPURINOL 100 MG TABLET. PO SCH (09:37)
[2021-09-10] MEDS: GABAPENTIN 300 MG CAPSULE. PO SCH (09:37)
[2021-09-10] MEDS: CHOLECALCIFEROL (VITAMIN D3) 1,000 UNIT TABLET PO SCH (09:37)
[2021-09-10] MEDS: ASCORBIC ACID 1,000 MG TABLET PO SCH (09:38)
[2021-09-10] MEDS: PANTOPRAZOLE 40 MG TABLET.DR. PO SCH (09:38)
[2021-09-10] MEDS: CARVEDILOL 12.5 MG TABLET. PO SCH (09:47)
[2021-09-10] MEDS: ACETAMINOPHEN 325 MG TABLET. PO PRN (09:47)
[2021-09-10] MEDS ORDERED: AMOX1TAB58 PO (09:48)
--- NOTE | 2021-09-10 09:53 | SNU/HH DC ---
DISCHARGE WITH HOME HEALTH DISCHARGE INFORMATION: Discharge Date: September 10, 2021 Final Diagnosis: Problems Medical Problems: (1) TAVARES (acute kidney injury) Status: Acute (2) Hypoxia Status: Acute (3) Pneumonia Status: Acute Condition on Discharge: Stable CODE STATUS: Code Status: Full HOME HEALTH: Face to Face: I certify this patient is under my care and that I, or a nurse practitioner or physician's assistant to the ceo working with me, had a face to face encounter that meets the physician face to face encounter requirements with this patient on 09/10/2021 Medical Complications: Pneumonia RN For Eval/Treatment: Yes Physical Therapy For: Evalulation/Treatment Occupational Therapy For: Evaluation/Treatment Pt Meets Homebound Status: Extreme weakness w/ amb. POST DISCHARGE ORDERS: Activity Instructions for Disc: Activity as tolerated DIET AFTER DISCHARGE: ADA CHECKS AFTER DISCHARGE: Checks after discharge: Check blood press - daily, Check blood sugar, ac/hs TREATMENT/EQUIPMENT ORDERS: Adaptive Equipment Issued: None CERTIFICATION STATEMENT: Certification Statement: Certification Statement: Based on the above finding, I certify that this patient is confined to the home and needs intermittent fdc care, physical therapy and/or speech therapy, or continues to need occupational therapy.~ This patient is under my care, and I have initiated the establishment of the plan of care.~ This patient will be followed by myself or a community physician who will periodically review the plan of care. Home Meds Active Scripts Amoxicillin/Potassium Clav (AUGMENTIN 500-125 TABLET) 1 Each Tablet, 1 TAB PO BID for pneumonia for 5 Days, #10 TAB 0 Refills Prov:SIRI SAHA MD 09/10/21 Reported Medications Cholecalciferol (Vitamin D3) (Vitamin D3 ) 125 Mcg Capsule, 1000 UNITS PO DAILY for SUPPLEMENT, CAP 5,000 UNITS = 125 MCG 09/05/21 Ascorbic Acid (VITAMIN C) 1,000 Mg Tablet, 1000 MG PO DAILY for supplement, TAB 09/05/21 Insulin Degludec (Tresiba) 100 Unit/1 Ml Vial, 34 UNIT SQ DAILY for dm, EACH 09/05/21 Torsemide (TORSEMIDE) 20 Mg Tablet, 20 MG PO HS for chf, TAB 09/05/21 Torsemide (TORSEMIDE) 20 Mg Tablet, 40 MG PO DAILY for chf, TAB 09/05/21 Sennosides (SENNA LAXATIVE) 8.6 Mg Tablet, 4 TAB PO HS for constiptation, TAB 09/05/21 Pantoprazole Sodium (PANTOPRAZOLE SODIUM ) 40 Mg Tablet.dr, 40 MG PO DAILYAC for GERD, TAB 09/05/21 Oxybutynin Chloride (OXYBUTYNIN CHLORIDE) 5 Mg Tablet, 5 MG PO DAILY for retention, TAB 09/05/21 Cyclobenzaprine Hcl (CYCLOBENZAPRINE HCL) 10 Mg Tablet, 10 MG PO PRN TID PRN for PAIN, TAB 09/05/21 Dronabinol (DRONABINOL) 10 Mg Capsule, 10 MG PO BID for gastroparesis, CAP 09/05/21 Ondansetron (ONDANSETRON ODT) 4 Mg Tab.rapdis, 4 MG PO BID PRN for NAUSEA/VOMITING, TAB 09/05/21 Nystatin (NYSTATIN) 15 Gm Powder, 15 GM TP PRN BID PRN for SKIN BREAKDOWN, MISC 09/05/21 Nitroglycerin (NITROGLYCERIN SubLingual) 0.4 Mg Tab.subl, 0.4 MG SL PRN Q5MIN PRN for CHEST PAIN, ML 09/05/21 Multivitamin (MULTI VITAMIN DAILY) 1 Each Tablet, 1 EACH PO DAILY for supplement, TAB 09/05/21 Metolazone (METOLAZONE) 2.5 Mg Tablet, 2.5 MG PO QMWF for chf, #30 TAB 0 Refills 09/05/21 Magnesium Oxide (MAGNESIUM) 400 Mg Capsule, 400 MG PO HS for supplement, CAP 09/05/21 Levothyroxine Sodium (LEVOTHYROXINE SODIUM) 125 Mcg Tablet, 125 MCG PO DAILYAC for THYROID SUPPLEMENT, #30 TAB 0 Refills 09/05/21 Hydromorphone Hcl (HYDROMORPHONE HCL) 4 Mg Tablet, 3 MG PO PRN Q4HRS PRN for PAIN, TAB 09/05/21 Ferrous Sulfate (FERROUS SULFATE) 325 Mg Tablet, 65 MG PO QMWF for supplement, TAB 09/05/21 Insulin Lispro (HUMALOG) 100 Unit/1 Ml Vial, 100 UNIT SQ TIDWMEALS for dm, EACH 09/05/21 Acetaminophen (ACETAMINOPHEN) 325 Mg Tablet, 325 MG PO PRN Q6HRS PRN for PAIN, TAB 09/05/21 Calcitriol (CALCITRIOL) 0.25 Mcg Capsule, 0.25 MCG PO QMWF for supplement, CAP 09/05/21 Glucagon (Baqsimi) 3 Mg [place], 3 MG NS PRN PRN for SEE ADMIN INSTRUCTIONS, ML 09/05/21 Fentanyl (FENTANYL 25mcg/hr) 1 Each Patch.td72, 37.5 MCG TD Q72H for pain, PATCH 09/05/21 Aspirin (ASPIRIN) 81 Mg Tab.chew, 81 MG PO DAILY for ppx, TAB.CHEW 09/05/21 Isosorbide Mononitrate (ISOSORBIDE MONONITRATE ER) 30 Mg Tab.er.24h, 60 MG PO DAILY for bp, #90 TAB 1 Refill 07/25/21 Hydralazine Hcl (HYDRALAZINE HCL) 10 Mg Tablet, 25 MG PO BID for bp, #180 TAB 3 Refills 07/25/21 Gabapentin (GABAPENTIN) 600 Mg Tablet, 600 MG PO BID for NEUROGENIC PAIN, TAB 07/25/21 Carvedilol (CARVEDILOL) 25 Mg Tablet, 12.5 MG PO BIDWMEALS for CARDIAC, TAB 07/25/21 Atorvastatin Calcium (ATORVASTATIN CALCIUM) 40 Mg Tablet, 80 MG PO HS for FOR CHOLESTEROL, #30 TAB 0 Refills 07/25/21 Allopurinol (ALLOPURINOL) 100 Mg Tablet, 1 TAB PO DAILY for gout, #30 TAB 5 Refills 07/25/21 Folic Acid (FOLIC ACID) 0.4 Mg Tablet, 0.4 MG PO DAILY for SUPPLEMENT, TAB 07/25/21 Duloxetine Hcl (CYMBALTA) 20 Mg Capsule.dr, 60 MG PO DAILY for mood, #30 CAP 2 Refills 07/25/21 Docusate Sodium (COLACE) 100 Mg Capsule, 2 CAP PO DAILY for stool softener for 30 Days, #60 CAP 0 Refills 07/25/21 Cyanocobalamin (Vitamin B-12) (Vitamin B-12) 500 Mcg Tab.subl, 500 MCG SL DAILY for supplement, TAB 07/25/21 Clopidogrel Bisulfate (CLOPIDOGREL) 75 Mg Tablet, 1 TAB PO DAILY for blood thinner, #90 TAB 1 Refill 07/25/21 SIRI SAHA MD September 10, 2021 09:53
[2021-09-10] MEDS: LIDOCAINE (700MG/PATCH) PATCH. TD SCH (09:55)
[2021-09-10 11:00] VITALS: BP 163/58
--- NOTE | 2021-09-10 12:12 | NUR ---
SS following up with discharge planning. SS reviewed pt chart and discussed with pt RN. Pt is currently requiring oxygen at two liters nasal canula. COVID19 negative. PO diet. Discharge orders received for home with home healthcare. Pt is current on services with [facility], ; fax [phone]. Pt has home oxygen. Discharge orders and referral sent to [facility] and pt accepted on services. Family requesting transportation to home due to not having oxygen tank available for transport. Pt will discharge to home today between 1500 and 1530 via [employer] transportation, . Pt's RN notified.
--- NOTE | 2021-09-10 16:00 | NUR ---
Discharge Note: JADE BARRON CLONTARF Discharge instructions and discharge home medications reviewed with the patient and a copy given. All questions have been answered and understanding verbalized. The following instructions and handouts were given: Augmentin BID sent to pharmacy Continue home meds, schedule discussed with the patient Home oxygen Follow up with Dr Morejon as instructed Follow up with PCP in a week Patient discharged to home with home health via wheelchair on 3 liters oxygen at 1503
== END 2021-09-10 15:03 | disposition home health service (06) | DRG 177 ==
LOC: ER 13:27 → ED HOLD 16:30 → 5 NORTH 19:26
PROVIDERS: ADMIT Internal Medicine; ATTEND Internal Medicine
DX: J69.0 Pneumonitis due to inhalation of food and vomit (principal); G92.8 Other toxic encephalopathy; J96.01 Acute respiratory failure with hypoxia; N17.9 Acute kidney failure, unspecified; F11.20 Opioid dependence, uncomplicated; K31.84 Gastroparesis; E11.22 Type 2 diabetes mellitus with diabetic chronic kidney disease; E11.42 Type 2 diabetes mellitus with diabetic polyneuropathy; E11.43 Type 2 diabetes mellitus with diabetic autonomic (poly)neuropathy; E78.5 Hyperlipidemia, unspecified; F17.200 Nicotine dependence, unspecified, uncomplicated; G89.29 Other chronic pain; I12.9 Hypertensive chronic kidney disease with stage 1 through stage 4 chronic kidney disease, or unspecified chronic kidney disease; I25.10 Atherosclerotic heart disease of native coronary artery without angina pectoris; I25.2 Old myocardial infarction; N18.9 Chronic kidney disease, unspecified; Y95 Nosocomial condition; Z86.61 Personal history of infections of the central nervous system; Z90.49 Acquired absence of other specified parts of digestive tract; Z95.5 Presence of coronary angioplasty implant and graft; Z20.822 Contact with and (suspected) exposure to COVID-19
CPT/HCPCS: 36415; 36600; 70450; 71045; 71250; 74176; 80048; 80053; 80202; 80307; 81001; 82140; 82550; 82805; 82962; 83036; 83605; 83690; 83880; 84145; 84484; 85025; 85027; 85610; 85730; 87040; 87086; 87428; 87641; 93005; 94640; 96365; 96367; 96375; J1630; J1815; J1940; J2310; J2543; J3370; J7040; J7042; J7050; J7060; 92526-GN; 92610-GN; 97116-GP; 97530-GO; 99285-25; G0378; J7030; J7613; Q0167